=== PATIENT | male | born 1945 | race Caucasian/White ===

== ENCOUNTER 2016-12-14 19:29 | Inpatient (IN) | payer MEDICARE ==
[~2016-12-14] VITALS: Ht 175.3 cm; Wt 94.8 kg
[~2016-12-14 19:29] MED LIST: AMLO5TAB4 PO; Bisacodyl PR; CYCL10TA2 PO; DOCU-27 PO; GABA-586 PO; HYDR-2762 PO; SENN8.6T3 PO; TAMS0.4C97 PO
--- NOTE | 2016-12-14 20:41 | PHYS DOC ---
Past Medical History Past Medical History: Hypertension, Other Additional Past Medical Histor: enlarged prostate Past Surgical History: Other Additional Past Surgical Histo: back surgery x 6, c-spine surgery hernia repair , TURP; vasectomy Alcohol Use: Rarely Drug Use: None Adult General Chief Complaint Chief Complaint: ALTERED MENTAL STATUS HPI HPI Patient is a 71 year old male who presents with complaint of a syncopal episode that took place prior to arrival. The patient was at his home when the episode occurred. Patient states the last thing he remembers was sitting down to watch TV. He states the next thing he remembers was waking up in the ambulance after his called EMS. She stated that the patient was unresponsive sitting in his chair at home and so she called the ambulance could she could not arouse him awake. On their arrival they noted that the patient had a heart rate in the 30s and a blood pressure of 60 systolic. Patient was started on IV fluids and placed in the ambulance. Upon placement in the ambulance the patient arose in his heart rate and blood pressure improved. Patient had a GCS of 3 initially per EMS and stated that the patient quickly had a GCS of 15 once he woke up. Patient has history of hypertension. Patient denies any history of myocardial infarction or coronary artery disease. Patient has not had any previous episodes similar to what he had prior to arrival. Patient denied any associated chest pain or shortness of breath. Patient states he did have dizziness while he was watching TV but denies any dizziness currently. The patient admits that he worked outside today for approximately 5 hours and states that he has urinated twice today. Review of Systems Review of Systems Constitutional: Denies fever or chills [] Eyes: Denies change in visual acuity, redness, or eye pain [] HENT: Denies nasal congestion or sore throat [] Respiratory: Denies cough or shortness of breath [] Cardiovascular: Syncope, denies chest pain or edema [] GI: Denies abdominal pain, nausea, vomiting, bloody stools or diarrhea [] : Denies dysuria or hematuria [] Musculoskeletal: Denies back pain or joint pain [] Integument: Denies rash or skin lesions [] Neurologic: Denies headache, focal weakness or sensory changes [] Current Medications Current Medications Current Medications Medications (Trade) Dose Ordered Sig/Adalgisa Start Time Stop Time Status Last Admin Dose Admin Sodium Chloride (Iv Sodium Chloride 0.9% 1000ml Bag) 1,000 ml @ 100 mls/hr 1X ONCE 12/14/16 20:45 12/15/16 06:44 12/14/16 21:13 100 MLS/HR Allergies Allergies Allergies Coded Allergies Type Severity Reaction Last Updated Verified No Known Drug Allergies 11/08/13 No Physical Exam Physical Exam Constitutional: Well developed, well nourished, no acute distress, non-toxic appearance. [] HENT: Normocephalic, atraumatic, bilateral external ears normal, oropharynx moist, no oral exudates, nose normal. [] Eyes: PERRLA, EOMI, conjunctiva normal, no discharge. [] Neck: Normal range of motion, no tenderness, supple, no stridor. [] Cardiovascular:Heart rate regular rhythm, grade 2/6 systolic ejection murmur heard best along right sternal border [] Lungs & Thorax: Bilateral breath sounds clear to auscultation [] Abdomen: Bowel sounds normal, soft, no tenderness, no masses, no pulsatile masses. [] Skin: Warm, dry, no erythema, no rash. [] Back: No tenderness, no CVA tenderness. [] Extremities: No tenderness, no cyanosis, no clubbing, ROM intact, no edema. [] Neurologic: Alert and oriented X 3, normal motor function, normal sensory function, no focal deficits noted. [] Current Patient Data Vital Signs Vital Signs Date Time Temp Pulse Resp B/P Pulse Ox O2 Delivery O2 Flow Rate FiO2 12/14/16 21:00 60 20 180/77 97 12/14/16 20:00 Room Air 12/14/16 19:40 97.7 97.7 Lab Values Laboratory Tests Test 12/14/16 19:40 White Blood Count 10.2x10^3/uL (4.0-11.0) Red Blood Count 4.10x10^6/uL (4.30-5.70) L Hemoglobin 12.3g/dL (13.0-17.5) L Hematocrit 37.1% (39.0-53.0) L Mean Corpuscular Volume 91fL (79-100) Mean Corpuscular Hemoglobin 30pg (25-35) Mean Corpuscular Hemoglobin Concent 33g/dL (31-37) Red Cell Distribution Width 13.7% (11.5-14.5) Platelet Count 189x10^3/uL (140-400) Neutrophils (%) (Auto) 66% (31-73) Lymphocytes (%) (Auto) 22% (24-48) L Monocytes (%) (Auto) 10% (0-9) H Eosinophils (%) (Auto) 1% (0-3) Basophils (%) (Auto) 1% (0-3) Neutrophils # (Auto) 6.8x10^3uL (1.8-7.7) Lymphocytes # (Auto) 2.2x10^3/uL (1.0-4.8) Monocytes # (Auto) 1.0x10^3/uL (0.0-1.1) Eosinophils # (Auto) 0.1x10^3/uL (0.0-0.7) Basophils # (Auto) 0.1x10^3/uL (0.0-0.2) Sodium Level 142mmol/L (136-145) Potassium Level 4.5mmol/L (3.5-5.1) Chloride Level 107mmol/L (98-107) Carbon Dioxide Level 24mmol/L (21-32) Anion Gap 11 (6-14) Blood Urea Nitrogen 27mg/dL (8-26) H Creatinine 1.7mg/dL (0.7-1.3) H Estimated GFR (Cockcroft-Gault) 39.8 BUN/Creatinine Ratio 16 (6-20) Glucose Level 110mg/dL (70-99) H Calcium Level 10.1mg/dL (8.5-10.1) Magnesium Level 1.9mg/dL (1.8-2.4) Total Bilirubin 0.5mg/dL (0.2-1.0) Aspartate Amino Transferase (AST) 31U/L (15-37) Alanine Aminotransferase (ALT) 30U/L (16-63) Alkaline Phosphatase 47U/L (46-116) Creatine Kinase 391U/L (39-308) H Creatine Kinase MB (Mass) Pending Creatine Kinase MB Relative Index Pending Troponin I Quantitative < 0.017ng/mL (0.000-0.055) Total Protein 6.8g/dL (6.4-8.2) Albumin 3.5g/dL (3.4-5.0) Albumin/Globulin Ratio 1.1 (1.0-1.7) Laboratory Tests 12/14/16 19:40 Laboratory Tests 12/14/16 19:40 EKG EKG Interpreted by me: Heart rate 55, sinus rhythm, normal intervals, normal axis, no acute ST/T-wave abnormalities present [] Radiology/Procedures Radiology/Procedures One view AP chest x-ray interpreted by me: No infiltrate, no effusions, normal cardiac silhouette [] Course & Med Decision Making Course & Med Decision Making Pertinent Labs and Imaging studies reviewed. (See chart for details) The patient was started on IV fluids in the emergency department. Patient's troponin was normal. Patient's kidney function consistent with dehydration. Due to patient's age and presence of heart murmur with no previous cardiac workup, the patient will need admission to the hospital for further workup of syncope. I spoke with Dr. Moses who accepted care of patient in hospital. A consult was placed to Dr. Canchola of cardiology to follow patient in hospital. Dragon Disclaimer Dragon Disclaimer This electronic medical record was generated, in whole or in part, using a voice recognition dictation system. Departure Departure Impression: Primary Impression: Syncope Additional Impressions: Heart murmur Dehydration Disposition: ADMITTED INPATIENT Admitting Physician: Other Condition: STABLE Referrals: ZOHREH ZUÑIGA MD (PCP) Problem Qualifiers Primary Impression: Syncope Syncope type: unspecified Qualified Code: R55 - Syncope and collapse RIO GLOVER MD Dec 14, 2016 20:41
[2016-12-14 20:43] LABS: BASO # 0.1 x10^3/uL (0.0-0.2); BASO % 1 % (0-3); EOS % 1 % (0-3); HEMATOCRIT 37.1 % (39.0-53.0); HEMOGLOBIN 12.3 g/dL (13.0-17.5); LYMPH # 2.2 x10^3/uL (1.0-4.8); LYMPH % 22 % (24-48); MEAN CORPUSCULAR HEMOGLOBIN 30 pg (25-35); MEAN CORPUSCULAR HGB CONC 33 g/dL (31-37); MEAN CORPUSCULAR VOLUME 91 fL (79-100); MONO % 10 % (0-9); NEUT % 66 % (31-73); PLATELET COUNT 189 x10^3/uL (140-400); RED CELL DISTRIBUTION WIDTH 13.7 % (11.5-14.5); WHITE BLOOD COUNT 10.2 x10^3/uL (4.0-11.0)
[2016-12-14] MEDS ORDERED: IV NORMAL SALINE 1000ML BAG 1,000 ML IV ONE (20:45)
[2016-12-14 21:18] LABS: CALCIUM 10.1 mg/dL (8.5-10.1); CREATININE 1.7 mg/dL (0.7-1.3); GFR 39.8; POTASSIUM 4.5 mmol/L (3.5-5.1)
[2016-12-14 21:25] LABS: ALBUMIN 3.5 g/dL (3.4-5.0); ALBUMIN/GLOBULIN RATIO 1.1 (1.0-1.7); MAGNESIUM 1.9 mg/dL (1.8-2.4); TOTAL BILIRUBIN 0.5 mg/dL (0.2-1.0); TOTAL PROTEIN 6.8 g/dL (6.4-8.2)
--- NOTE | 2016-12-14 22:12 | ACF ---
Admission Forms Criteria MENTAL STATUS CHANGE Clinical Indications for Inpatient Care (Place 'X' for any and all applicable criteria): Ongoing inpatient care may be needed for 1 or more of the following(1)(2)(3)(5)( 6): [ ]I. Suspected serious etiology (eg, medical disorder, [employer] event) of altered mental status [ ]II. Danger to self or others not manageable at lower level of care [ ]III. Grave disability (eg, inability to perform self care necessary at lower level of care) [ ]IV. Agitation or inappropriate behavior interfering with care for primary condition (eg, attempting to discontinue lines or drains prematurely, unable to cooperate with respiratory care) [ ]V. Delirium [A] [D][E] as described by 1 or more of the following(26): [ ]a) Delirium due to alcohol or sedative [F] withdrawal [ ]b) Delirium of uncertain etiology that has not responded to appropriate empiric treatment [ ]c) Delirium that prevents performance of a life-sustaining function (eg, feeding or hydrating oneself) [X]. General contraindications and/or Inappropriate clinical situations for Observational Care in patients with Mental Status Change, when ANY ONE of the following is required: [ ]a) Prediction of prolongation of LOS based on ANY ONE of the following may be considered as a contraindication for observational care 2, 3, 4, 5, 6, 7, 8, 9, 10, 11 [ ]i) Age > 65 yrs. [ ]ii) Patient arriving by ambulance [ ]iii) Patient with high acuity [ ]iv) Patient requiring vital sign monitoring [ ]v) Patient on IV medication [X]b) Systolic blood pressures greater than or equal to 180mmHg 3, 12 [ ]c) Patient with altered mental status including delirium and other alteration of consciousness, (3) [ ]d) Patient whose discharge disposition will be to a group home home or rehabilitation home should not be managed in Emergency Department Observation Unit. CMS rule requires 3 days hospital stay before such placement.3,13 [ ]e) Patient with failure to thrive due to broad array of etiologies 3,16,17 [ ]f) Inability to ambulate 3,14 Extended stay beyond goal length of stay for the primary condition may be needed until ALL of the following are present(3)(5): [ ]a) Underlying medical etiology of mental status change is absent, or has been established and adequately treated [ ]b) Danger to self or others is absent or manageable at lower level of care. [ ]c) Behavior crisis management, including physical or chemical restraints, is not required or available at lower level of car [ ]d) Substance or alcohol withdrawal is absent or manageable at lower level of care. [ ]e) Behavioral symptoms (eg, agitation, somnolence, inappropriate behavior) are absent, or are manageable at lower level of care. The original [facility] content created by [facility] has been revised. The portions of the content which have been revised are identified through the use of italic text or in bold, and [facility] has neither reviewed nor approved the modified material. All other unmodified content is copyright [facility]. Please see references footnoted in the original [facility] edition 2016 Admission Criteria Met?: Yes VIRIDIANA MCNEILL Dec 14, 2016 22:12
[2016-12-14] MEDS ORDERED: ONDANSETRON PF 4 MG/2 ML VIAL. IV PRN (22:30)
[2016-12-14] MEDS ORDERED: ACETAMINOPHEN 325 MG TABLET. PO PRN (22:30)
[2016-12-14 22:50] VITALS: BP 162/67
[2016-12-15] VITALS (8 sets, daily range): BP systolic 125–170; BP diastolic 58–75
[2016-12-15] MEDS ORDERED: LISI-334 PO (00:11)
[2016-12-15] MEDS ORDERED: POLY17PO29 PO (00:11)
[2016-12-15 00:15] LABS: CKMB MASS 9.7 ng/mL (0.0-3.6)
--- NOTE | 2016-12-15 01:14 | EKG ---
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
[2016-12-15 04:51] LABS: BASO # 0.1 x10^3/uL (0.0-0.2); BASO % 1 % (0-3); EOS % 1 % (0-3); HEMATOCRIT 36.4 % (39.0-53.0); HEMOGLOBIN 12.1 g/dL (13.0-17.5); LYMPH # 2.4 x10^3/uL (1.0-4.8); LYMPH % 26 % (24-48); MEAN CORPUSCULAR HEMOGLOBIN 30 pg (25-35); MEAN CORPUSCULAR HGB CONC 33 g/dL (31-37); MEAN CORPUSCULAR VOLUME 90 fL (79-100); MONO % 10 % (0-9); NEUT % 63 % (31-73); PLATELET COUNT 183 x10^3/uL (140-400); RED BLOOD COUNT 4.03 x10^6/uL (4.30-5.70); RED CELL DISTRIBUTION WIDTH 13.7 % (11.5-14.5); WHITE BLOOD COUNT 9.5 x10^3/uL (4.0-11.0)
[2016-12-15 05:34] LABS: CALCIUM 9.7 mg/dL (8.5-10.1); CREATININE 1.5 mg/dL (0.7-1.3); POTASSIUM 4.4 mmol/L (3.5-5.1)
--- NOTE | 2016-12-15 08:35 | RAD ---
Portable chest, 12/14/2016: History: Syncope Comparison is made to a study from 04/16/2015. The heart size and pulmonary vascularity are normal. No pulmonary infiltrates are seen. There is no evidence of pleural fluid. Mild spurring is present in the spine. IMPRESSION: No acute cardiopulmonary abnormality is detected.
--- NOTE | 2016-12-15 09:07 | PDOC2 ---
RASHAWN STALLWORTH ENERGY EFFICIENCY ENGINEER 12/15/16 0907: CARDIAC CONSULT DATE OF CONSULT Date of Consult DATE: 12/15/16 TIME: 08:56 REASON FOR CONSULT Reason for Consult: Syncope REFERRING PHYSICIAN Referring Physician: Joshua SOURCE Source: Chart review, Patient HISTORY OF PRESENT ILLNESS HISTORY OF PRESENT ILLNESS This is a pleasant 71 yo male admitted for witnessed unresponsiveness. Spouse was byt the patient. They were sitting watching TV when she noticed that his nose was dripping secretions and asked him if he was ok and he said yes. Then next she noted him with saliva running down his mouth with his dentures hanging. She tried to wake him up but he could not. EMS arrived and it took about 5-10 minutes before she gaine consciousness. He was in a recliner at that time. Per EMS he was noted with HR in the 30s but no specifics as to what rhythm. Also his SBP was in the 60s. Prior to this happening he did have some dizziness but no symptoms of palpitations, SOA, WETZEL, CP, nor vertigo or LOZOYA. During that same day he actually did some yardwork and did well with adequate hydration. He does take BP meds otherwise there was no AV mor blocking agents nor diureics that he takes. He has not taken Flexeril in a while. Denies any prior episodes of this, CVA, CAD, arrhythmias. Denies any incontinence associated with this event no seizures in the past. Denies any falls, recent injury, or VTE. The last time he fell and this was a mechanical fall was 2 yrs ago. PAST MEDICAL HISTORY Cardiovascular: HTN Pulmonary: No pertinent hx CENTRAL NERVOUS SYSTEM: Other (No pertinent history) GI: Constipation Heme/Onc: No pertinent hx Hepatobiliary: No pertinent hx Psych: No pertinent hx Musculoskeletal: low back pain, Osteoarthritis Rheumatologic: No pertinent hx Infectious disease: No pertinent hx ENT: Other (cataract) Renal/: Benign prostatic enlarg. Endocrine: No pertinent hx Dermatology: No pertinent hx PAST SURGICAL HISTORY Past Surgical History: Cataract Removal, Hernia Repair, Other (Cervical surgery x2, lumbar surgery x4; vasectomy; TURP) SOCIAL HISTORY Smoke: No ALCOHOL: none Drugs: None Lives: with Family CURRENT MEDICATIONS CURRENT MEDICATIONS Current Medications Medications (Trade) Dose Ordered Sig/Adalgisa Route PRN Reason Start Time Stop Time Status Last Admin Dose Admin Sodium Chloride (Iv Sodium Chloride 0.9% 1000ml Bag) 1,000 ml @ 100 mls/hr 1X ONCE IV 12/14/16 20:45 12/15/16 06:44 DC 12/14/16 21:13 ALLERGIES ALLERGIES: Coded Allergies: No Known Drug Allergies (Unverified , 11/08/13) ROS Review of System 14 point ROS evaluated with pertinent positives noted per HPI PHYSICAL EXAM General: Alert, Oriented X3, Cooperative, No acute distress HEENT: Atraumatic, Mucous membr. moist/pink Lungs: Clear to auscultation, Normal air movement Heart: Regular rate, Normal S1, Normal S2, Other (2/6 systolic murmur to LLS border) Abdomen: Soft, No tenderness Extremities: No cyanosis, No edema Skin: No breakdown, No significant lesion Neuro: Normal speech, Sensation intact Psych/Mental Status: Mood NL MUSCULOSKELETAL: Osteoarthritic changes both hands VITALS VITALS Vital Signs Date Time Temp Pulse Resp B/P Pulse Ox O2 Delivery O2 Flow Rate FiO2 12/15/16 07:00 97.8 55 18 125/74 96 Room Air 97.8 LABS Lab: Laboratory Tests Test 12/14/16 19:40 12/15/16 03:40 White Blood Count 10.2x10^3/uL (4.0-11.0) 9.5x10^3/uL (4.0-11.0) Red Blood Count 4.10x10^6/uL (4.30-5.70) 4.03x10^6/uL (4.30-5.70) Hemoglobin 12.3g/dL (13.0-17.5) 12.1g/dL (13.0-17.5) Hematocrit 37.1% (39.0-53.0) 36.4% (39.0-53.0) Mean Corpuscular Volume 91fL (79-100) 90fL (79-100) Mean Corpuscular Hemoglobin 30pg (25-35) 30pg (25-35) Mean Corpuscular Hemoglobin Concent 33g/dL (31-37) 33g/dL (31-37) Red Cell Distribution Width 13.7% (11.5-14.5) 13.7% (11.5-14.5) Platelet Count 189x10^3/uL (140-400) 183x10^3/uL (140-400) Neutrophils (%) (Auto) 66% (31-73) 63% (31-73) Lymphocytes (%) (Auto) 22% (24-48) 26% (24-48) Monocytes (%) (Auto) 10% (0-9) 10% (0-9) Eosinophils (%) (Auto) 1% (0-3) 1% (0-3) Basophils (%) (Auto) 1% (0-3) 1% (0-3) Neutrophils # (Auto) 6.8x10^3uL (1.8-7.7) 6.0x10^3uL (1.8-7.7) Lymphocytes # (Auto) 2.2x10^3/uL (1.0-4.8) 2.4x10^3/uL (1.0-4.8) Monocytes # (Auto) 1.0x10^3/uL (0.0-1.1) 0.9x10^3/uL (0.0-1.1) Eosinophils # (Auto) 0.1x10^3/uL (0.0-0.7) 0.1x10^3/uL (0.0-0.7) Basophils # (Auto) 0.1x10^3/uL (0.0-0.2) 0.1x10^3/uL (0.0-0.2) Sodium Level 142mmol/L (136-145) 141mmol/L (136-145) Potassium Level 4.5mmol/L (3.5-5.1) 4.4mmol/L (3.5-5.1) Chloride Level 107mmol/L (98-107) 108mmol/L (98-107) Carbon Dioxide Level 24mmol/L (21-32) 23mmol/L (21-32) Anion Gap 11 (6-14) 10 (6-14) Blood Urea Nitrogen 27mg/dL (8-26) 29mg/dL (8-26) Creatinine 1.7mg/dL (0.7-1.3) 1.5mg/dL (0.7-1.3) Estimated GFR (Cockcroft-Gault) 39.8 46.0 BUN/Creatinine Ratio 16 (6-20) Glucose Level 110mg/dL (70-99) 105mg/dL (70-99) Calcium Level 10.1mg/dL (8.5-10.1) 9.7mg/dL (8.5-10.1) Magnesium Level 1.9mg/dL (1.8-2.4) Total Bilirubin 0.5mg/dL (0.2-1.0) Aspartate Amino Transf (AST/SGOT) 31U/L (15-37) Alanine Aminotransferase (ALT/SGPT) 30U/L (16-63) Alkaline Phosphatase 47U/L (46-116) Creatine Kinase 391U/L (39-308) Creatine Kinase MB (Mass) 9.7ng/mL (0.0-3.6) Creatine Kinase MB Relative Index 2.5% (0-4) Troponin I Quantitative < 0.017ng/mL (0.000-0.055) < 0.017ng/mL (0.000-0.055) Total Protein 6.8g/dL (6.4-8.2) Albumin 3.5g/dL (3.4-5.0) Albumin/Globulin Ratio 1.1 (1.0-1.7) ASSESSMENT/PLAN ASSESSMENT/PLAN 1. Symptomatic bradycardia: unknown rhythm but HR 30 noted at home by EMS. Currently SB 50s, QTc 383 2. Syncope: related to above. unresponsive for 5-10 minutes 3. Prerenal azotemia 4. UTI with hx of BPH/TURP 5. HTN: controlled Recommendations 1. TSH, lipids, TTE 2. Will determine any reversible etiology, pending testings will likely need PPM 3. Discussed with pt and family regarding plans. 4. Antibiotics per PCP 5. Continue with IVF 6. Will obtain orthostatic readings. 7. Will hold lisinopril for now. Hydralazine IV PRN Problems: MINDI GUERRERO MD 12/15/16 8119: CARDIAC CONSULT ALLERGIES ALLERGIES: Coded Allergies: No Known Drug Allergies (Unverified , 11/08/13) ASSESSMENT/PLAN ASSESSMENT/PLAN Pt. seen and examined. Agree with above CAROUSEL ATTENDANT note. 71 y.o male with syncope. Cannot rule out seizure. Reported HR of 30's but no strip available for review. Current cardiac exam notable for soft systolic murmur. Echo with preserved EF and mild to mod AI. Labs reviewed, mild renal insufficiency. BP/HR thus far in the hospital stable. No acute indication for pacemaker, unless we have strips from EMS available for review. Will consult neurology to rule out seizure, and check head CT. Likely home with event monitor unless he has any issues on tele. Discussed with , daughter as well. Avoid driving until monitor complete. Thanks for consultation. Will f/u tomorrow. Problems: RASHAWN STALLWORTH APRN Dec 15, 2016 09:07 MINDI GUERRERO MD Dec 15, 2016 14:39
[2016-12-15 09:33] LABS: CHOLESTEROL/HDL RATIO 5.9
[2016-12-15] MEDS ORDERED: hydrALAZINE 20 MG/ML VIAL. IVP PRN (12:30)
[2016-12-15] MEDS: ASPIRIN 325 MG TABLET PO SCH (12:44)
[2016-12-15] MEDS: IV NORMAL SALINE 1000ML BAG 1,000 ML IV SCH ×2 (12:50→18:30)
--- NOTE | 2016-12-15 13:54 | CARD ---
APPROVED REPORT EXAM: Two-dimensional and M-mode echocardiogram with Doppler and color Doppler. Other Information Quality : GoodHR: 52bpm Rhythm : Bradycardia with APC's INDICATION Bradycardia 2D DIMENSIONS RVDd3.3 (2.9-3.5cm)Left Atrium(2D)3.5 (1.6-4.0cm) IVSd1.5 (0.7-1.1cm)Aortic Root(2D)2.6 (2.0-3.7cm) LVDd5.3 (3.9-5.9cm)LVOT Diameter2.2 (1.8-2.4cm) PWd1.5 (0.7-1.1cm)LVDs3.6 (2.5-4.0cm) FS (%) 31.6 %SV78.9 ml LVEF(%)59.1 (>50%) Aortic Valve AoV Peak Filippo.255.9cm/sAoV VTI54.6cm AO Peak GR.26.2mmHgLVOT Peak Filippo.116.1cm/s LVOT VTI 26.26cmAO Mean GR.13mmHg DAMI (VMAX)1.89ge9BJT (VTI)1.87cm2 AI P 1/2 Pumi644ii Mitral Valve MV E Krpfoijz73.9cm/sMV DECEL HBGB696sm MV A Iwxuskxc40.5cm/sMV E Mean Gr.1mmHg MV TVK579grG/A Ratio0.8 MV A Svhddyzk942bqQGL (PHT)2.01cm2 TDI E/Lateral E'7.4E/Medial E'9.6 Pulmonary Valve PV Peak Kqatwahy909.8cm/sPV Peak Grad.6mmHg RVOT VTI20.9cm Tricuspid Valve TR P. Noetlxty243yi/sRAP XFBHQYMN2kmYp TR Peak Gr.50obBfMZPI90ukMc Pulmonary Vein S1 Bdjdxdpa72.3cm/sD2 Hlaoiisg03.0cm/s PVa ntxkohyy389lrkj LEFT VENTRICLE The left ventricle is normal size. There is mild concentric left ventricular hypertrophy. Left ventri gaviota systolic function is normal. The Ejection Fraction is 55-60%. There is normal LV segmental wall m otion. Transmitral Doppler flow pattern is Grade I-abnormal relaxation pattern. There is no ventricul ar septal defect visualized. RIGHT VENTRICLE The right ventricle is normal size. The right ventricular systolic function is normal. ATRIA The left atrium size is normal. The right atrium size is normal. The interatrial septum is intact wit h no evidence for an atrial septal defect or patent foramen ovale as noted on 2-D or Doppler imaging. AORTIC VALVE The aortic valve is mild to moderately calcified but opens well. The aortic valve is trileaflet. Dopp ler and Color Flow revealed mild to moderate aortic regurgitation. There is no significant aortic ann marie vular stenosis. MITRAL VALVE Mitral annular calcification is mild. The mitral valve leaflets are mildly calcified but open well. T here is no evidence of mitral valve prolapse. There is no mitral valve stenosis. Doppler and Color Fl ow revealed trace mitral valve regurgitation noted. TRICUSPID VALVE The tricuspid valve is normal in structure. Doppler and Color Flow revealed mild tricuspid regurgitat ion. The PA pressure was estimated at 28 mmHg. There is no tricuspid valve stenosis. PULMONIC VALVE The pulmonary valve is normal in structure and function. Doppler and Color Flow revealed trace pulmon ic valvular regurgitation. There is no pulmonic valvular stenosis. GREAT VESSELS The aortic root is normal in size. The ascending aorta is normal in size. Normal pulmonary venous tha w (Doppler). The IVC is normal in size and collapses >50% with inspiration. PERICARDIAL EFFUSION There is no pleural effusion. There is no evidence of significant pericardial effusion. Critical Notification Critical Value: No <Conclusion> Left ventricle systolic function is normal. The Ejection Fraction is 55-60%. There is normal LV segmental wall motion. Doppler and Color Flow revealed mild to moderate aortic regurgitation.
[2016-12-15] MEDS ORDERED: SENNOSIDES 8.6 MG TABLET PO PRN (14:30)
[2016-12-15] MEDS ORDERED: HYDROCODONE/APAP 7.5/325MG TABLET. PO PRN (14:30)
[2016-12-15] MEDS ORDERED: POLYETHYLENE GLYCOL 3350 17 GM PACKET. PO PRN (14:30)
[2016-12-15] MEDS ORDERED: BISACODYL 10 MG SUPP.RECT. PR PRN (15:00)
--- NOTE | 2016-12-15 15:25 | RAD ---
Carotid ultrasound, 12/15/2016: History: Syncope Duplex evaluation of the carotid arteries in neck was performed including grayscale, color-flow and spectral Doppler analysis. There is mild intimal thickening and smooth plaquing in the common carotid arteries and at the carotid bifurcations. The Doppler data obtained from the bifurcations reveals no significant focal velocity elevation to suggest a hemodynamically significant carotid stenosis. The peak systolic velocity in the right internal carotid artery is 74 cm per sec with an end-diastolic velocity of 19 cm/s. The peak systolic velocity in the left internal carotid artery is 58 cm/s with an end-diastolic velocity of 15 cm/s. Antegrade flow is present in both vertebral arteries in the neck. IMPRESSION: Mild atherosclerotic plaquing at both carotid bifurcations with underlying luminal narrowing in the 0-50% diameter range bilaterally. Note: Stenosis calculations for CT, MRA and conventional angiography are based upon determination of the distal ICA diameter in accordance with the NASCET methodology. Stenosis calculations for Doppler studies are derived from validated velocity criteria which are known to correlate with NASCET methodology of determining stenosis.
--- NOTE | 2016-12-15 15:27 | RAD ---
CT of the head without contrast, 12/15/2016: History: Syncope Comparison is made to a study from 11/08/2013. There is mild cerebral atrophy. There are mild patchy lucencies in the deep white matter bilaterally compatible with chronic ischemic change. The ventricles are mildly prominent on a compensatory basis. There is no shift of the midline structures. There is no evidence of acute intracranial hemorrhage or mass effect. IMPRESSION: 1. Chronic findings as described above. 2. No acute intracranial abnormality is detected. PQRS Compliance Statement: One or more of the following individualized dose reduction techniques were utilized for this examination: 1. Automated exposure control 2. Adjustment of the mA and/or kV according to patient size 3. Use of iterative reconstruction technique
--- NOTE | 2016-12-15 15:35 | HP ---
ADMIT DATE: 12/15/2016 CHIEF COMPLAINT: Mental status change. HISTORY OF PRESENT ILLNESS: The patient is a pleasant 71-year-old male who presents with mental status change. He actually had a syncopal episode prior to arrival that occurred at home. He was watching TV, and the next thing he knew he was in the ambulance. His had called the ambulance. When the ambulance first arrived, his heart rate was in the 30s. His pressure was in the 60s. He was given IV fluids and transferred to our facility. PAST MEDICAL HISTORY: Hypertension, BPH, back surgery x 6, TURP, and vasectomy. ALLERGIES: None. FAMILY HISTORY: Hypertension. SOCIAL HISTORY: Does not drink, smoke, or take drugs. MEDICATIONS: Reviewed. Please refer to the MRAD. REVIEW OF SYSTEMS: GENERAL: No history of weight change, weakness, or fevers. SKIN: No bruising, hair changes, or rashes. EYES: No blurred, double, or loss of vision. NOSE AND THROAT: No history of nosebleeds, hoarseness, or sore throat. HEART: He complains of intermittent palpitations. LUNGS: Denies cough, hemoptysis, wheezing, or shortness of breath. GASTROINTESTINAL: Denies changes in appetite, nausea, vomiting, diarrhea, or constipation. GENITOURINARY: No history of frequency, urgency, hesitancy, or nocturia. NEUROLOGIC: Denies history of numbness, tingling, tremor, or weakness. PSYCHIATRIC: No history of panic, anxiety, or depression. ENDOCRINE: No history of heat or cold intolerance, polyuria, or polydipsia. EXTREMITIES: Denies muscle weakness, joint pain, pain on walking, or stiffness. PHYSICAL EXAMINATION: VITAL SIGNS: Temperature afebrile, pulse currently at 55, respirations 18, blood pressure 125/74, and O2 saturation is 96%. GENERAL: He is alert and cooperative. HEART: Normal S1, S2, but bradycardic. LUNGS: Clear. ABDOMEN: Soft. EXTREMITIES: No edema. SKIN: No rashes. PSYCHIATRIC: Stable. VASCULAR: Good capillary refill. ENDOCRINE: No thyromegaly. LYMPHATICS: No cervical nodes. HEMATOPOIETIC: No bruising. LABORATORY DATA: White count 10, hemoglobin 12, and platelets 189. Electrolytes are normal other than BUN of 29 and creatinine 1.5. Cholesterol is high at 218, LDL 139, triglycerides 212, and HDL of 37. ASSESSMENT AND PLAN: Symptomatic bradycardia. The patient has been admitted. We are checking serial enzymes and serial EKGs. Consult Cardiology. Echocardiogram. Continue home medicines except for hold any negative chronotropic agents. PROGNOSIS: Guarded. STAR GRIGGS DO DR: AMI/adrianna JOB#: [id number] / [id number]
[2016-12-15] MEDS: GABAPENTIN 300 MG CAPSULE. PO SCH ×2 (15:48→21:57)
[2016-12-15] MEDS ORDERED: CYCLOBENZAPRINE 10 MG TABLET. PO PRN (18:00)
[2016-12-15] MEDS ORDERED: CYCLOBENZAPRINE 10 MG TABLET. PO SCH (18:00)
[2016-12-15] MEDS ORDERED: TAMSULOSIN 0.4 MG CAP.ER.24H. PO SCH (21:00)
[2016-12-15] MEDS ORDERED: ATORVASTATIN CALCIUM 20 MG TABLET PO SCH (21:00)
[2016-12-16] MEDS: IV NORMAL SALINE 1000ML BAG 1,000 ML IV SCH (01:30)
[2016-12-16 03:05] VITALS: BP 161/65
[2016-12-16 07:00] VITALS: BP 127/79
[2016-12-16] MEDS ORDERED: ACETAMINOPHEN 500 MG TABLET PO PRN (08:30)
[2016-12-16] MEDS ORDERED: POLYETHYLENE GLYCOL 3350 17 GM PACKET. PO PRN (08:30)
[2016-12-16] MEDS: LISINOPRIL 20 MG TABLET PO SCH (08:51)
[2016-12-16] MEDS: DOCUSATE SODIUM 100 MG CAPSULE. PO SCH (08:51)
[2016-12-16] MEDS: ASPIRIN 325 MG TABLET PO SCH (08:52)
[2016-12-16] MEDS: TAMSULOSIN 0.4 MG CAP.ER.24H. PO SCH (08:52)
[2016-12-16] MEDS: GABAPENTIN 300 MG CAPSULE. PO SCH ×3 (08:52→20:42)
[2016-12-16 09:05] LABS: CALCIUM 9.1 mg/dL (8.5-10.1); CREATININE 1.2 mg/dL (0.7-1.3); GFR 59.5; MAGNESIUM 1.9 mg/dL (1.8-2.4); POTASSIUM 4.1 mmol/L (3.5-5.1)
[2016-12-16 11:00] VITALS: BP 161/64
--- NOTE | 2016-12-16 11:23 | PDOC ---
PROGRESS NOTES Chief Complaint Chief Complaint cc: syncope, weakness. dehydration Hypertension BPH with prior TURP back surgery x 6 vasectomy osteoarthritis prior cataract removal History of Present Illness History of Present Illness Patient seen and evaluated at bedside. Patient sitting up in bed, in no apparent distress. Patient notes he is feeling much better, but still somewhat weak and c/o frontal headache. Ate his breakfast without any difficulty. d/w nurse about plan of care. Vitals Vitals Vital Signs Date Time Temp Pulse Resp B/P Pulse Ox O2 Delivery O2 Flow Rate FiO2 12/16/16 11:00 97.9 60 18 161/64 98 Room Air 97.9 Physical Exam General: Alert, Oriented X3, Cooperative, No acute distress Heart: Regular rate, Normal S1, Normal S2, Other (2/6 systolic murmur to LLS border) Lungs: Clear Abdomen: Soft, No tenderness Extremities: No cyanosis, No edema Skin: No breakdown, No significant lesion Labs LABS Laboratory Tests Test 12/16/16 08:30 Sodium Level 141mmol/L (136-145) Potassium Level 4.1mmol/L (3.5-5.1) Chloride Level 109mmol/L (98-107) Carbon Dioxide Level 22mmol/L (21-32) Anion Gap 10 (6-14) Blood Urea Nitrogen 20mg/dL (8-26) Creatinine 1.2mg/dL (0.7-1.3) Estimated GFR (Cockcroft-Gault) 59.5 Glucose Level 108mg/dL (70-99) Calcium Level 9.1mg/dL (8.5-10.1) Magnesium Level 1.9mg/dL (1.8-2.4) Review of Systems Review of Systems (+) generalized weakness (+) headache. Denies chest pain, palpitations, sob, dizziness/lightheadedness, abdominal pain , n/v/d, or fever/chills. Assessment and Plan Assessmemt and Plan Problems Medical Problems: (1) Dehydration Status: Acute (2) Heart murmur Status: Acute (3) Syncope Status: Acute Assessment: 1. Symptomatic bradycardia: 2. Syncopal episode, most likely secondary to 1. 3. Prerenal azotemia 4. HTN: controlled Assessment: 1.) continue telemetry monitoring. 2.) continue home medications as appropriate 3.) monitor orthostatic vitals 4.) IVF per cardiology 5.) CT head negative; carotid doppler with <50% stenosis. 6.) probable discharge when okay with subspecialty input 7.) appreciate subspecialty input. 8.) check AM labs. 9.) neurology consult recommended to r/o seizures or other pathology. 10.) PT/OT evaluation and treatment to assess stability. Problems: Comment Review of Relevant I have reviewed the following items helena (where applicable) has been applied. Labs Laboratory Tests Test 12/14/16 19:40 12/15/16 03:40 12/15/16 11:00 12/16/16 08:30 White Blood Count 10.2x10^3/uL (4.0-11.0) 9.5x10^3/uL (4.0-11.0) Red Blood Count 4.10x10^6/uL (4.30-5.70) 4.03x10^6/uL (4.30-5.70) Hemoglobin 12.3g/dL (13.0-17.5) 12.1g/dL (13.0-17.5) Hematocrit 37.1% (39.0-53.0) 36.4% (39.0-53.0) Mean Corpuscular Volume 91fL (79-100) 90fL (79-100) Mean Corpuscular Hemoglobin 30pg (25-35) 30pg (25-35) Mean Corpuscular Hemoglobin Concent 33g/dL (31-37) 33g/dL (31-37) Red Cell Distribution Width 13.7% (11.5-14.5) 13.7% (11.5-14.5) Platelet Count 189x10^3/uL (140-400) 183x10^3/uL (140-400) Neutrophils (%) (Auto) 66% (31-73) 63% (31-73) Lymphocytes (%) (Auto) 22% (24-48) 26% (24-48) Monocytes (%) (Auto) 10% (0-9) 10% (0-9) Eosinophils (%) (Auto) 1% (0-3) 1% (0-3) Basophils (%) (Auto) 1% (0-3) 1% (0-3) Neutrophils # (Auto) 6.8x10^3uL (1.8-7.7) 6.0x10^3uL (1.8-7.7) Lymphocytes # (Auto) 2.2x10^3/uL (1.0-4.8) 2.4x10^3/uL (1.0-4.8) Monocytes # (Auto) 1.0x10^3/uL (0.0-1.1) 0.9x10^3/uL (0.0-1.1) Eosinophils # (Auto) 0.1x10^3/uL (0.0-0.7) 0.1x10^3/uL (0.0-0.7) Basophils # (Auto) 0.1x10^3/uL (0.0-0.2) 0.1x10^3/uL (0.0-0.2) Sodium Level 142mmol/L (136-145) 141mmol/L (136-145) 141mmol/L (136-145) Potassium Level 4.5mmol/L (3.5-5.1) 4.4mmol/L (3.5-5.1) 4.1mmol/L (3.5-5.1) Chloride Level 107mmol/L (98-107) 108mmol/L (98-107) 109mmol/L (98-107) Carbon Dioxide Level 24mmol/L (21-32) 23mmol/L (21-32) 22mmol/L (21-32) Anion Gap 11 (6-14) 10 (6-14) 10 (6-14) Blood Urea Nitrogen 27mg/dL (8-26) 29mg/dL (8-26) 20mg/dL (8-26) Creatinine 1.7mg/dL (0.7-1.3) 1.5mg/dL (0.7-1.3) 1.2mg/dL (0.7-1.3) Estimated GFR (Cockcroft-Gault) 39.8 46.0 59.5 BUN/Creatinine Ratio 16 (6-20) Glucose Level 110mg/dL (70-99) 105mg/dL (70-99) 108mg/dL (70-99) Calcium Level 10.1mg/dL (8.5-10.1) 9.7mg/dL (8.5-10.1) 9.1mg/dL (8.5-10.1) Magnesium Level 1.9mg/dL (1.8-2.4) 1.9mg/dL (1.8-2.4) Total Bilirubin 0.5mg/dL (0.2-1.0) Aspartate Amino Transf (AST/SGOT) 31U/L (15-37) Alanine Aminotransferase (ALT/SGPT) 30U/L (16-63) Alkaline Phosphatase 47U/L (46-116) Creatine Kinase 391U/L (39-308) Creatine Kinase MB (Mass) 9.7ng/mL (0.0-3.6) Creatine Kinase MB Relative Index 2.5% (0-4) Troponin I Quantitative < 0.017ng/mL (0.000-0.055) < 0.017ng/mL (0.000-0.055) < 0.017ng/mL (0.000-0.055) Total Protein 6.8g/dL (6.4-8.2) Albumin 3.5g/dL (3.4-5.0) Albumin/Globulin Ratio 1.1 (1.0-1.7) Triglycerides Level 212mg/dL (0-150) Cholesterol Level 218mg/dL (0-200) LDL Cholesterol, Calculated 139mg/dL (0-100) VLDL Cholesterol, Calculated 42mg/dL (0-40) Non-HDL Cholesterol Calculated 181mg/dL (0-129) HDL Cholesterol 37mg/dL (40-60) Cholesterol/HDL Ratio 5.9 Thyroid Stimulating Hormone (TSH) 0.937uIU/mL (0.358-3.74) Laboratory Tests Test 12/16/16 08:30 Sodium Level 141mmol/L (136-145) Potassium Level 4.1mmol/L (3.5-5.1) Chloride Level 109mmol/L (98-107) Carbon Dioxide Level 22mmol/L (21-32) Anion Gap 10 (6-14) Blood Urea Nitrogen 20mg/dL (8-26) Creatinine 1.2mg/dL (0.7-1.3) Estimated GFR (Cockcroft-Gault) 59.5 Glucose Level 108mg/dL (70-99) Calcium Level 9.1mg/dL (8.5-10.1) Magnesium Level 1.9mg/dL (1.8-2.4) Medications Current Medications Sodium Chloride (Iv Sodium Chloride 0.9% 1000ml Bag) 1,000 ml @ 100 mls/hr 1X ONCE IV Last administered on 12/14/16 21:13; Start 12/14/16 at 20:45; Stop at 06:44; Status DC Ondansetron HCl 4 mg 4 mg PRN Q8HRS PRN IV NAUSEA/VOMITING; Start 12/14/16 at 22:30; Stop 12/15/16 at 22:29; Status DC Sodium Chloride (Iv Sodium Chloride 0.9% 1000ml Bag) 1,000 ml @ 100 mls/hr Q10H IV Last administered on 12/16/16 01:30; Start 12/14/16 at 22:30; Stop at 22:29; Status DC Acetaminophen (Tylenol) 650 mg PRN Q4HRS PRN PO FEVER; Start 12/14/16 at 22:30 ; Stop 12/15/16 at 22:29; Status DC Aspirin (Sheldon Aspirin) 325 mg DAILYWBKFT PO Last administered on 12/16/16 08: 52; Start 12/15/16 at 08:00 Atorvastatin Calcium (Lipitor) 20 mg QHS PO ; Start 12/15/16 at 21:00; Stop at 21:00; Status DC Hydralazine HCl (Apresoline) 10 mg PRN Q4HRS PRN IVP ELEVATED BP, SEE COMMENTS Last administered on 12/16/16 04:24; Start 12/15/16 at 12:30 Cyclobenzaprine HCl (Flexeril) 10 mg [id number] PO ; Start 12/15/16 at 18:00; Stop 12/15/16 at 18:00; Status DC Docusate Sodium (Colace) 100 mg DAILY PO Last administered on 12/16/16 08:51; Start 12/16/16 at 09:00 Acetaminophen/ Hydrocodone Bitart (Lortab 7.5/325) 1 tab PRN Q6HRS PRN PO PAIN ; Start 12/15/16 at 14:30 Lisinopril (Prinivil) 20 mg DAILY PO Last administered on 12/16/16 08:51; Start 12/16/16 at 09:00 Polyethylene Glycol (miraLAX PACKET) 3.35 gm PRN DAILY PRN PO CONSTIPATION Last administered on 12/16/16 08:52; Start 12/15/16 at 14:30 Sennosides (Senna) 8.6 mg PRN BID PRN PO CONSTIPATION (2ND CHOICE); Start 12/15 at 14:30 Tamsulosin HCl (Flomax) 0.4 mg HS PO ; Start 12/15/16 at 21:00; Stop 12/15/16 at 21:00; Status DC Gabapentin (Neurontin) 300 mg TID PO Last administered on 12/16/16 08:52; Start 12/15/16 at 15:00 Bisacodyl (Dulcolax Supp) 10 mg PRN DAILY PRN ME CONSTIPATION; Start 12/15/16 at 15:00 Cyclobenzaprine HCl (Flexeril) 10 mg PRN TID PRN PO MUSCLE SPASMS; Start at 18:00 Tamsulosin HCl (Flomax) 0.4 mg DAILY PO Last administered on 12/16/16 08:52; Start 12/16/16 at 09:00 Polyethylene Glycol (miraLAX PACKET) 17 gm PRN DAILY PRN PO CONSTIPATION; Start 12/16/16 at 08:30; Status Cancel Acetaminophen (Tylenol) 500 mg PRN Q6HRS PRN PO MILD PAIN / TEMP Last administered on 12/16/16 08:52; Start 12/16/16 at 08:30 Active Scripts Active Senna (Sennosides) 8.6 Mg Tablet 8.6 Mg PO PRN BID PRN Colace (Docusate Sodium) 100 Mg Capsule 100 Mg PO DAILY [Bisacodyl] 10 MG Supp.rect 10 Mg ME PRN DAILY PRN Reported Lisinopril 20 Mg Tablet 20 Mg PO DAILY Miralax (Polyethylene Glycol 3350) 17 Gm Powd.pack 1 Pkt PO PRN DAILY PRN Hydrocodone-Apap 7.5-325 (Hydrocodone Bit/Acetaminophen) 1 Each Tablet 1 Tab PO PRN Q6HRS PRN Gabapentin 300 Mg Capsule 300 Mg PO TID Cyclobenzaprine Hcl 10 Mg Tablet 10 Mg PO Flomax (Tamsulosin Hcl) 0.4 Mg Cap.er.24h 0.4 Mg PO HS Vitals/I & O Vital Sign - Last 24 Hours 12/15/16 12/15/16 12/15/16 12/15/16 15:00 15:04 15:08 19:10 Temp 97.6 97.7 97.6 97.7 Pulse 52 53 59 60 Resp 16 B/P 156/75 152/65 153/67 152/69 Pulse Ox 97 96 O2 Delivery Room Air Room Air 12/15/16 12/15/16 12/16/16 12/16/16 20:00 23:05 03:05 04:24 Temp 98.0 98.3 98.0 98.3 Pulse 57 61 50 Resp 14 B/P 170/73 161/65 161/62 Pulse Ox 97 97 O2 Delivery Room Air Room Air Room Air 12/16/16 12/16/16 12/16/16 12/16/16 07:00 08:00 08:51 11:00 Temp 97.6 97.9 97.6 97.9 Pulse 55 55 60 Resp 18 B/P 127/79 127/79 161/64 Pulse Ox 96 98 O2 Delivery Room Air Room Air Room Air Intake and Output 12/15/16 12/15/16 12/16/16 15:00 23:00 07:00 Intake Total 550 ml 839 ml Output Total 200 ml Balance 550 ml 639 ml STAR GRIGGS III DO Dec 16, 2016 11:23
--- NOTE | 2016-12-16 12:22 | PDOC ---
RASHAWN STALLWORTH CARDBOARD CUTTER 12/16/16 1222: CARDIO Progress Notes Date and Time Date of Service 12/16/2016 Time of Evaluation 1100 Subjective Subjective: No Chest Pain, No shortness of breath, No Palpitations, No Dizziness, Other (ambulatroy without difficulty) Vitals Vitals Vital Signs Date Time Temp Pulse Resp B/P Pulse Ox O2 Delivery O2 Flow Rate FiO2 12/16/16 11:00 97.9 60 18 161/64 98 Room Air 97.9 Weight Weight [ ] Input and Output Intake and Output Intake and Output 12/16/16 06:59 Intake Total 1389 ml Output Total 200 ml Balance 1189 ml Intake Oral 550 ml IV Total 839 ml Output Urine Total 200 ml # Voids 5 # Bowel Movements 1 Laboratory Labs Laboratory Tests Test 12/16/16 08:30 Sodium Level 141mmol/L (136-145) Potassium Level 4.1mmol/L (3.5-5.1) Chloride Level 109mmol/L (98-107) Carbon Dioxide Level 22mmol/L (21-32) Anion Gap 10 (6-14) Blood Urea Nitrogen 20mg/dL (8-26) Creatinine 1.2mg/dL (0.7-1.3) Estimated GFR (Cockcroft-Gault) 59.5 Glucose Level 108mg/dL (70-99) Calcium Level 9.1mg/dL (8.5-10.1) Magnesium Level 1.9mg/dL (1.8-2.4) Physical Exam HEENT: Neck Supple W Full Motion Chest: Symmetric LUNGS: Clear to Auscultation Heart: S1S2, RRR (SB 40-60) Abdomen: Soft N/T Extremities: No Edema, No Calf Tenderness Neurology: alert, oriented, follow commands Assessment Assessment 1. Symptomatic bradycardia: unknown rhythm but HR 30 noted at home by EMS ( Unable to obtain the EKG strip from EMS) No further symptoms recurrence 2. Syncope: related to above. No injuries. With notable hypotension. Unresponsive for 5-10 minutes 3. Prerenal azotemia: resolved 4. UTI with hx of BPH/TURP: per PCP 5. HTN: controlled. No orthostasis. Labile with held lisinopril 6. HLP: new Recommendations 1. TTE with normal EF and wall motio, and mild to moderate aortic regurgitation. 4 wk event monitor as outpt 2. Resume lisinopril, and start on lipitor 3. 81 mg ASA for primary prevention 4. May DC per cardiac perspective, follow up in 5 weeks post event monitor. 5. Maintain daily po hydration. MINDI GUERRERO MD 12/16/16 2316: CARDIO Progress Notes Plan Plan Pt. seen and examined. Agree with above [employer] INSPECTOR note. No acute events overnight. Pt. walked with PT and no evidence of abn on tele Ok to DC from CV with monitor neurology w/u including carotid doppler, MRI negative. Will f/u in clinic. Thanks RASHAWN STALLWORTH CARDBOARD CUTTER Dec 16, 2016 12:22 MINDI GUERRERO MD Dec 16, 2016 23:16
[2016-12-16 15:00] VITALS: BP 159/93
--- NOTE | 2016-12-16 15:28 | PDOC2 ---
NEUROLOGY CONSULT Date of Admission Date of Admission DATE: 12/16/16 TIME: 15:11 Reason for Consult Reason for Consult: IMPRESSION: Syncope vs seizure. Weakness. Collapse event. Renal failure. HLD HTN Degenerative spine and disc disease. RECOMMENDATIONS/PLAN: Brain MRI w/o contrast. EEG Lab: see orders. Continue ASA 325 mg daily. Continue Lipitor HS. HISTORY OF THE PRESENT ILLNESS: 71-y-old male patient with above medical diseases suddenly collapsed in couch while watching TV. Per his , he last consciousness, unresponsive to verbal and textile stimuli, eye open and fixed, head dropped to chest with drooling, floppiness of extremities for several minutes. Ambulance was called and initial medical management was provided. He gained consciousness upon his way to [facility]. He had no collection. No obvious postictal state nor confusional episode, but he felt weakness. He had chronic right UE weakness after C-spine surgery but felt weaker this time. PAST MEDICAL HISTORY: Please see above. PAST SURGERY HISTORY: C-spine and back surgeries. Vasectomy. ALLERGY: Reviewed. MEDICATIONS: Refer to [facility] FAMILY HISTORY: Non contributory. SOCIAL HISTORY: Lives with his at home. Denies current smoking, drinking, and illicit drug use. REVIEW OF SYSTEMS: Constitutional: No malnutrition, weight loss, cachexia. Head: No traumatic brain or head injury. Skin: No edema, or rash. Ear: No infection. Eyes: No vision loss or color blindness. Nose: No bleeding or purulent discharges. Hearing: mild hearing decrease. Neck: No injury. Cardiac: HTN, HLD. Pulmonary: No COPD. GI: No GI ulcer, GI bleeding. Urinary/genital: BPH. Endocrinologic: No cousin face, craniofacial dysmorphism, polydactyly. Skeletomuscular: No muscular atrophy, deformity. Neurological: see HP. Psychiatric: Denies drug use/abuse. Otherwise, not [id number] review of systems. PHYSICAL EXAMINATION: General appearance is in no acute distress. HEENT: Normocephalic and nontraumatic. Eyes, nose, ears, and throat are unremarkable. Neck is supple. No lymphadenopathy. No crepitus. Cardiovascular: S1, S2, regular rate and rhythm. Pulmonary: Clear to auscultation bilaterally. Abdomen: Bowel sounds are positive. Abdomen is soft, nontender, and nondistended. Extremities: No rash, lesions, or edema. No restriction of range of motion NEUROLOGICAL EXAMINATION: Awake. Oriented to time, place and person. PERRL. EOMI. CN: no acute focal findings. Muscle tone: Increased in right UE and bilateral LE. Muscle strength: 4- right UE, 5- left side and LE. DTR: 3 UE and knee Plantar reflex: Neutral response bilaterally Gait: not examined in bed. Sensory exam: no acute abnormal findings. No obvious cerebellar signs elicited. F-T-N test fine. Current Medications Current Medications Current Medications Sodium Chloride (Iv Sodium Chloride 0.9% 1000ml Bag) 1,000 ml @ 100 mls/hr 1X ONCE IV Last administered on 12/14/16 21:13; Start 12/14/16 at 20:45; Stop at 06:44; Status DC Ondansetron HCl 4 mg 4 mg PRN Q8HRS PRN IV NAUSEA/VOMITING; Start 12/14/16 at 22:30; Stop 12/15/16 at 22:29; Status DC Sodium Chloride (Iv Sodium Chloride 0.9% 1000ml Bag) 1,000 ml @ 100 mls/hr Q10H IV Last administered on 12/16/16 01:30; Start 12/14/16 at 22:30; Stop at 22:29; Status DC Acetaminophen (Tylenol) 650 mg PRN Q4HRS PRN PO FEVER; Start 12/14/16 at 22:30 ; Stop 12/15/16 at 22:29; Status DC Aspirin (Sheldon Aspirin) 325 mg DAILYWBKFT PO Last administered on 12/16/16 08: 52; Start 12/15/16 at 08:00 Atorvastatin Calcium (Lipitor) 20 mg QHS PO ; Start 12/15/16 at 21:00; Stop at 21:00; Status DC Hydralazine HCl (Apresoline) 10 mg PRN Q4HRS PRN IVP ELEVATED BP, SEE COMMENTS Last administered on 12/16/16 04:24; Start 12/15/16 at 12:30 Cyclobenzaprine HCl (Flexeril) 10 mg [id number] PO ; Start 12/15/16 at 18:00; Stop 12/15/16 at 18:00; Status DC Docusate Sodium (Colace) 100 mg DAILY PO Last administered on 12/16/16 08:51; Start 12/16/16 at 09:00 Acetaminophen/ Hydrocodone Bitart (Lortab 7.5/325) 1 tab PRN Q6HRS PRN PO PAIN ; Start 12/15/16 at 14:30 Lisinopril (Prinivil) 20 mg DAILY PO Last administered on 12/16/16 08:51; Start 12/16/16 at 09:00 Polyethylene Glycol (miraLAX PACKET) 3.35 gm PRN DAILY PRN PO CONSTIPATION Last administered on 12/16/16 08:52; Start 12/15/16 at 14:30 Sennosides (Senna) 8.6 mg PRN BID PRN PO CONSTIPATION (2ND CHOICE); Start 12/15 at 14:30 Tamsulosin HCl (Flomax) 0.4 mg HS PO ; Start 12/15/16 at 21:00; Stop 12/15/16 at 21:00; Status DC Gabapentin (Neurontin) 300 mg TID PO Last administered on 12/16/16 14:17; Start 12/15/16 at 15:00 Bisacodyl (Dulcolax Supp) 10 mg PRN DAILY PRN [place] CONSTIPATION; Start 12/15/16 at 15:00 Cyclobenzaprine HCl (Flexeril) 10 mg PRN TID PRN PO MUSCLE SPASMS; Start at 18:00 Tamsulosin HCl (Flomax) 0.4 mg DAILY PO Last administered on 12/16/16 08:52; Start 12/16/16 at 09:00 Polyethylene Glycol (miraLAX PACKET) 17 gm PRN DAILY PRN PO CONSTIPATION; Start 12/16/16 at 08:30; Status Cancel Acetaminophen (Tylenol) 500 mg PRN Q6HRS PRN PO MILD PAIN / TEMP Last administered on 12/16/16 08:52; Start 12/16/16 at 08:30 Atorvastatin Calcium (Lipitor) 20 mg QHS PO ; Start 12/16/16 at 21:00 Active Scripts Active Senna (Sennosides) 8.6 Mg Tablet 8.6 Mg PO PRN BID PRN Colace (Docusate Sodium) 100 Mg Capsule 100 Mg PO DAILY [Bisacodyl] 10 MG Supp.rect 10 Mg VT PRN DAILY PRN Reported Lisinopril 20 Mg Tablet 20 Mg PO DAILY Miralax (Polyethylene Glycol 3350) 17 Gm Powd.pack 1 Pkt PO PRN DAILY PRN Hydrocodone-Apap 7.5-325 (Hydrocodone Bit/Acetaminophen) 1 Each Tablet 1 Tab PO PRN Q6HRS PRN Gabapentin 300 Mg Capsule 300 Mg PO TID Cyclobenzaprine Hcl 10 Mg Tablet 10 Mg PO Flomax (Tamsulosin Hcl) 0.4 Mg Cap.er.24h 0.4 Mg PO HS Allergies Allergies: Coded Allergies: No Known Drug Allergies (Unverified , 11/08/13) Vitals VITALS Vital Signs Date Time Temp Pulse Resp B/P Pulse Ox O2 Delivery O2 Flow Rate FiO2 12/16/16 11:00 97.9 60 18 161/64 98 Room Air 97.9 Labs Labs Laboratory Tests Test 12/14/16 19:40 12/15/16 03:40 12/15/16 11:00 12/16/16 08:30 White Blood Count 10.2x10^3/uL (4.0-11.0) 9.5x10^3/uL (4.0-11.0) Red Blood Count 4.10x10^6/uL (4.30-5.70) 4.03x10^6/uL (4.30-5.70) Hemoglobin 12.3g/dL (13.0-17.5) 12.1g/dL (13.0-17.5) Hematocrit 37.1% (39.0-53.0) 36.4% (39.0-53.0) Mean Corpuscular Volume 91fL (79-100) 90fL (79-100) Mean Corpuscular Hemoglobin 30pg (25-35) 30pg (25-35) Mean Corpuscular Hemoglobin Concent 33g/dL (31-37) 33g/dL (31-37) Red Cell Distribution Width 13.7% (11.5-14.5) 13.7% (11.5-14.5) Platelet Count 189x10^3/uL (140-400) 183x10^3/uL (140-400) Neutrophils (%) (Auto) 66% (31-73) 63% (31-73) Lymphocytes (%) (Auto) 22% (24-48) 26% (24-48) Monocytes (%) (Auto) 10% (0-9) 10% (0-9) Eosinophils (%) (Auto) 1% (0-3) 1% (0-3) Basophils (%) (Auto) 1% (0-3) 1% (0-3) Neutrophils # (Auto) 6.8x10^3uL (1.8-7.7) 6.0x10^3uL (1.8-7.7) Lymphocytes # (Auto) 2.2x10^3/uL (1.0-4.8) 2.4x10^3/uL (1.0-4.8) Monocytes # (Auto) 1.0x10^3/uL (0.0-1.1) 0.9x10^3/uL (0.0-1.1) Eosinophils # (Auto) 0.1x10^3/uL (0.0-0.7) 0.1x10^3/uL (0.0-0.7) Basophils # (Auto) 0.1x10^3/uL (0.0-0.2) 0.1x10^3/uL (0.0-0.2) Sodium Level 142mmol/L (136-145) 141mmol/L (136-145) 141mmol/L (136-145) Potassium Level 4.5mmol/L (3.5-5.1) 4.4mmol/L (3.5-5.1) 4.1mmol/L (3.5-5.1) Chloride Level 107mmol/L (98-107) 108mmol/L (98-107) 109mmol/L (98-107) Carbon Dioxide Level 24mmol/L (21-32) 23mmol/L (21-32) 22mmol/L (21-32) Anion Gap 11 (6-14) 10 (6-14) 10 (6-14) Blood Urea Nitrogen 27mg/dL (8-26) 29mg/dL (8-26) 20mg/dL (8-26) Creatinine 1.7mg/dL (0.7-1.3) 1.5mg/dL (0.7-1.3) 1.2mg/dL (0.7-1.3) Estimated GFR (Cockcroft-Gault) 39.8 46.0 59.5 BUN/Creatinine Ratio 16 (6-20) Glucose Level 110mg/dL (70-99) 105mg/dL (70-99) 108mg/dL (70-99) Calcium Level 10.1mg/dL (8.5-10.1) 9.7mg/dL (8.5-10.1) 9.1mg/dL (8.5-10.1) Magnesium Level 1.9mg/dL (1.8-2.4) 1.9mg/dL (1.8-2.4) Total Bilirubin 0.5mg/dL (0.2-1.0) Aspartate Amino Transf (AST/SGOT) 31U/L (15-37) Alanine Aminotransferase (ALT/SGPT) 30U/L (16-63) Alkaline Phosphatase 47U/L (46-116) Creatine Kinase 391U/L (39-308) Creatine Kinase MB (Mass) 9.7ng/mL (0.0-3.6) Creatine Kinase MB Relative Index 2.5% (0-4) Troponin I Quantitative < 0.017ng/mL (0.000-0.055) < 0.017ng/mL (0.000-0.055) < 0.017ng/mL (0.000-0.055) Total Protein 6.8g/dL (6.4-8.2) Albumin 3.5g/dL (3.4-5.0) Albumin/Globulin Ratio 1.1 (1.0-1.7) Triglycerides Level 212mg/dL (0-150) Cholesterol Level 218mg/dL (0-200) LDL Cholesterol, Calculated 139mg/dL (0-100) VLDL Cholesterol, Calculated 42mg/dL (0-40) Non-HDL Cholesterol Calculated 181mg/dL (0-129) HDL Cholesterol 37mg/dL (40-60) Cholesterol/HDL Ratio 5.9 Thyroid Stimulating Hormone (TSH) 0.937uIU/mL (0.358-3.74) Laboratory Tests Test 12/16/16 08:30 Sodium Level 141mmol/L (136-145) Potassium Level 4.1mmol/L (3.5-5.1) Chloride Level 109mmol/L (98-107) Carbon Dioxide Level 22mmol/L (21-32) Anion Gap 10 (6-14) Blood Urea Nitrogen 20mg/dL (8-26) Creatinine 1.2mg/dL (0.7-1.3) Estimated GFR (Cockcroft-Gault) 59.5 Glucose Level 108mg/dL (70-99) Calcium Level 9.1mg/dL (8.5-10.1) Magnesium Level 1.9mg/dL (1.8-2.4) NATASHA CACERES MD Dec 16, 2016 15:28
--- NOTE | 2016-12-16 17:00 | RAD ---
PROCEDURE Brain MRI without contrast. HISTORY Right-sided weakness. Mental status changes. TECHNIQUE Multi sequence and multiplanar magnetic resonance imaging of the brain was performed without contrast. COMPARISON Head CT dated 12/15/2016. FINDINGS There is no restricted diffusion to suggest acute or subacute infarction. There is no susceptibility effect to suggest hemorrhage. There is no mass effect or midline shift. There is no hydrocephalus. There is ventricular enlargement due to cerebral volume loss. There is a tiny cavum septum pellucidum. There are extensive scattered focal areas of signal change throughout the cerebral white matter, likely due to chronic small vessel disease. There are chronic lacunar infarcts within the bilateral basal ganglia. There are findings consistent with lens surgery. There is mild paranasal sinus mucosal thickening. The mastoid air cells are clear. There are normal flow voids within the cerebral vessels. IMPRESSION 1. No acute intracranial finding. 2. Scattered areas of signal change throughout the cerebral white matter, a nonspecific finding likely due to chronic small vessel disease. 3. Chronic lacunar infarcts within the bilateral basal ganglia. 4. Cerebral volume loss with compensatory enlargement of the ventricles. Electronically signed by: Tiana Desai (Dec 16, 2016 16:58:48)
[2016-12-16 19:25] VITALS: BP 152/63
[2016-12-16] MEDS ORDERED: ATORVASTATIN CALCIUM 20 MG TABLET PO SCH (21:00)
[2016-12-16 23:15] VITALS: BP 166/66
[2016-12-17 03:45] VITALS: BP 159/86
[2016-12-17 06:14] LABS: BASO # 0.1 x10^3/uL (0.0-0.2); BASO % 1 % (0-3); EOS % 2 % (0-3); HEMATOCRIT 38.5 % (39.0-53.0); HEMOGLOBIN 12.7 g/dL (13.0-17.5); LYMPH # 1.8 x10^3/uL (1.0-4.8); LYMPH % 21 % (24-48); MEAN CORPUSCULAR HEMOGLOBIN 30 pg (25-35); MEAN CORPUSCULAR HGB CONC 33 g/dL (31-37); MEAN CORPUSCULAR VOLUME 90 fL (79-100); MONO % 10 % (0-9); NEUT % 66 % (31-73); PLATELET COUNT 186 x10^3/uL (140-400); RED BLOOD COUNT 4.28 x10^6/uL (4.30-5.70); RED CELL DISTRIBUTION WIDTH 13.9 % (11.5-14.5); WHITE BLOOD COUNT 8.4 x10^3/uL (4.0-11.0)
[2016-12-17 06:32] LABS: CALCIUM 9.6 mg/dL (8.5-10.1); CREATININE 1.2 mg/dL (0.7-1.3); GFR 59.5; POTASSIUM 4.1 mmol/L (3.5-5.1)
[2016-12-17 07:00] VITALS: BP 138/60
[2016-12-17] MEDS: TAMSULOSIN 0.4 MG CAP.ER.24H. PO SCH (10:22)
[2016-12-17] MEDS: DOCUSATE SODIUM 100 MG CAPSULE. PO SCH (10:22)
[2016-12-17] MEDS: GABAPENTIN 300 MG CAPSULE. PO SCH (10:22)
[2016-12-17] MEDS: ASPIRIN 325 MG TABLET PO SCH (10:23)
[2016-12-17] MEDS: LISINOPRIL 20 MG TABLET PO SCH (10:23)
[2016-12-17 11:00] VITALS: BP 170/72
--- NOTE | 2016-12-17 12:20 | PDOC ---
PROGRESS NOTES Chief Complaint Chief Complaint cc: syncope, weakness. dehydration Hypertension BPH with prior TURP back surgery x 6 vasectomy osteoarthritis prior cataract removal History of Present Illness History of Present Illness Patient seen and evaluated at bedside. Patient resting comfortably in no apparent distress. Patient reports feeling better today with resolution of his headache. Patient received a Holter monitor for home and understands to f/u with cardiology. awaiting possible EEG. d/w nurse about plan of care. Vitals Vitals Vital Signs Date Time Temp Pulse Resp B/P Pulse Ox O2 Delivery O2 Flow Rate FiO2 12/17/16 11:00 97.6 58 16 170/72 97 Room Air 97.6 Physical Exam General: Alert, Oriented X3, Cooperative, No acute distress Heart: Regular rate, Normal S1, Normal S2, Other (2/6 systolic murmur to LLS border) Lungs: Clear Abdomen: Soft, No tenderness Extremities: No cyanosis, No edema Skin: No breakdown, No significant lesion Labs LABS Laboratory Tests Test 12/17/16 05:30 White Blood Count 8.4x10^3/uL (4.0-11.0) Red Blood Count 4.28x10^6/uL (4.30-5.70) Hemoglobin 12.7g/dL (13.0-17.5) Hematocrit 38.5% (39.0-53.0) Mean Corpuscular Volume 90fL (79-100) Mean Corpuscular Hemoglobin 30pg (25-35) Mean Corpuscular Hemoglobin Concent 33g/dL (31-37) Red Cell Distribution Width 13.9% (11.5-14.5) Platelet Count 186x10^3/uL (140-400) Neutrophils (%) (Auto) 66% (31-73) Lymphocytes (%) (Auto) 21% (24-48) Monocytes (%) (Auto) 10% (0-9) Eosinophils (%) (Auto) 2% (0-3) Basophils (%) (Auto) 1% (0-3) Neutrophils # (Auto) 5.6x10^3uL (1.8-7.7) Lymphocytes # (Auto) 1.8x10^3/uL (1.0-4.8) Monocytes # (Auto) 0.9x10^3/uL (0.0-1.1) Eosinophils # (Auto) 0.2x10^3/uL (0.0-0.7) Basophils # (Auto) 0.1x10^3/uL (0.0-0.2) Sodium Level 139mmol/L (136-145) Potassium Level 4.1mmol/L (3.5-5.1) Chloride Level 109mmol/L (98-107) Carbon Dioxide Level 23mmol/L (21-32) Anion Gap 7 (6-14) Blood Urea Nitrogen 20mg/dL (8-26) Creatinine 1.2mg/dL (0.7-1.3) Estimated GFR (Cockcroft-Gault) 59.5 Glucose Level 109mg/dL (70-99) Calcium Level 9.6mg/dL (8.5-10.1) Review of Systems Review of Systems Denies chest pain, palpitations, sob, headache, lightheadedness/dizziness, abdominal pain, n/v/d, or fever/chills. Assessment and Plan Assessmemt and Plan Problems Medical Problems: (1) Dehydration Status: Acute (2) Heart murmur Status: Acute (3) Syncope Status: Acute Assessment: 1. Symptomatic bradycardia: 2. Syncopal episode, most likely secondary to 1. 3. Prerenal azotemia 4. HTN: controlled Assessment: 1.) probable discharge ok with cardiology; waiting for neurology. Pending EEG, can be performed inpatient vs. outpatient based on recommendations 2.) continue home medications as appropriate 3.) appreciate subspecialty input. 4.) resume activity and diet as appropriate 5.) f/u with pcp and/or cardiology in 2-4 weeks for evaluation and treatment. Problems: Comment Review of Relevant I have reviewed the following items helena (where applicable) has been applied. Labs Laboratory Tests Test 12/16/16 03:40 12/16/16 08:30 12/17/16 05:30 Vitamin B12 Level 312pg/mL (247-911) Sodium Level 141mmol/L (136-145) 139mmol/L (136-145) Potassium Level 4.1mmol/L (3.5-5.1) 4.1mmol/L (3.5-5.1) Chloride Level 109mmol/L (98-107) 109mmol/L (98-107) Carbon Dioxide Level 22mmol/L (21-32) 23mmol/L (21-32) Anion Gap 10 (6-14) 7 (6-14) Blood Urea Nitrogen 20mg/dL (8-26) 20mg/dL (8-26) Creatinine 1.2mg/dL (0.7-1.3) 1.2mg/dL (0.7-1.3) Estimated GFR (Cockcroft-Gault) 59.5 59.5 Glucose Level 108mg/dL (70-99) 109mg/dL (70-99) Calcium Level 9.1mg/dL (8.5-10.1) 9.6mg/dL (8.5-10.1) Magnesium Level 1.9mg/dL (1.8-2.4) White Blood Count 8.4x10^3/uL (4.0-11.0) Red Blood Count 4.28x10^6/uL (4.30-5.70) Hemoglobin 12.7g/dL (13.0-17.5) Hematocrit 38.5% (39.0-53.0) Mean Corpuscular Volume 90fL (79-100) Mean Corpuscular Hemoglobin 30pg (25-35) Mean Corpuscular Hemoglobin Concent 33g/dL (31-37) Red Cell Distribution Width 13.9% (11.5-14.5) Platelet Count 186x10^3/uL (140-400) Neutrophils (%) (Auto) 66% (31-73) Lymphocytes (%) (Auto) 21% (24-48) Monocytes (%) (Auto) 10% (0-9) Eosinophils (%) (Auto) 2% (0-3) Basophils (%) (Auto) 1% (0-3) Neutrophils # (Auto) 5.6x10^3uL (1.8-7.7) Lymphocytes # (Auto) 1.8x10^3/uL (1.0-4.8) Monocytes # (Auto) 0.9x10^3/uL (0.0-1.1) Eosinophils # (Auto) 0.2x10^3/uL (0.0-0.7) Basophils # (Auto) 0.1x10^3/uL (0.0-0.2) Laboratory Tests Test 12/17/16 05:30 White Blood Count 8.4x10^3/uL (4.0-11.0) Red Blood Count 4.28x10^6/uL (4.30-5.70) Hemoglobin 12.7g/dL (13.0-17.5) Hematocrit 38.5% (39.0-53.0) Mean Corpuscular Volume 90fL (79-100) Mean Corpuscular Hemoglobin 30pg (25-35) Mean Corpuscular Hemoglobin Concent 33g/dL (31-37) Red Cell Distribution Width 13.9% (11.5-14.5) Platelet Count 186x10^3/uL (140-400) Neutrophils (%) (Auto) 66% (31-73) Lymphocytes (%) (Auto) 21% (24-48) Monocytes (%) (Auto) 10% (0-9) Eosinophils (%) (Auto) 2% (0-3) Basophils (%) (Auto) 1% (0-3) Neutrophils # (Auto) 5.6x10^3uL (1.8-7.7) Lymphocytes # (Auto) 1.8x10^3/uL (1.0-4.8) Monocytes # (Auto) 0.9x10^3/uL (0.0-1.1) Eosinophils # (Auto) 0.2x10^3/uL (0.0-0.7) Basophils # (Auto) 0.1x10^3/uL (0.0-0.2) Sodium Level 139mmol/L (136-145) Potassium Level 4.1mmol/L (3.5-5.1) Chloride Level 109mmol/L (98-107) Carbon Dioxide Level 23mmol/L (21-32) Anion Gap 7 (6-14) Blood Urea Nitrogen 20mg/dL (8-26) Creatinine 1.2mg/dL (0.7-1.3) Estimated GFR (Cockcroft-Gault) 59.5 Glucose Level 109mg/dL (70-99) Calcium Level 9.6mg/dL (8.5-10.1) Medications Current Medications Sodium Chloride (Iv Sodium Chloride 0.9% 1000ml Bag) 1,000 ml @ 100 mls/hr 1X ONCE IV Last administered on 12/14/16 21:13; Start 12/14/16 at 20:45; Stop at 06:44; Status DC Ondansetron HCl 4 mg 4 mg PRN Q8HRS PRN IV NAUSEA/VOMITING; Start 12/14/16 at 22:30; Stop 12/15/16 at 22:29; Status DC Sodium Chloride (Iv Sodium Chloride 0.9% 1000ml Bag) 1,000 ml @ 100 mls/hr Q10H IV Last administered on 12/16/16 01:30; Start 12/14/16 at 22:30; Stop at 22:29; Status DC Acetaminophen (Tylenol) 650 mg PRN Q4HRS PRN PO FEVER; Start 12/14/16 at 22:30 ; Stop 12/15/16 at 22:29; Status DC Aspirin (Sheldon Aspirin) 325 mg [id number] PO Last administered on 12/17/16 10: 23; Start 12/15/16 at 08:00 Atorvastatin Calcium (Lipitor) 20 mg QHS PO ; Start 12/15/16 at 21:00; Stop at 21:00; Status DC Hydralazine HCl (Apresoline) 10 mg PRN Q4HRS PRN IVP ELEVATED BP, SEE COMMENTS Last administered on 12/16/16 04:24; Start 12/15/16 at 12:30 Cyclobenzaprine HCl (Flexeril) 10 mg [id number] PO ; Start 12/15/16 at 18:00; Stop 12/15/16 at 18:00; Status DC Docusate Sodium (Colace) 100 mg DAILY PO Last administered on 12/17/16 10:22; Start 12/16/16 at 09:00 Acetaminophen/ Hydrocodone Bitart (Lortab 7.5/325) 1 tab PRN Q6HRS PRN PO PAIN ; Start 12/15/16 at 14:30 Lisinopril (Prinivil) 20 mg DAILY PO Last administered on 12/17/16 10:23; Start 12/16/16 at 09:00 Polyethylene Glycol (miraLAX PACKET) 3.35 gm PRN DAILY PRN PO CONSTIPATION Last administered on 12/16/16 08:52; Start 12/15/16 at 14:30 Sennosides (Senna) 8.6 mg PRN BID PRN PO CONSTIPATION (2ND CHOICE); Start 12/15 at 14:30 Tamsulosin HCl (Flomax) 0.4 mg HS PO ; Start 12/15/16 at 21:00; Stop 12/15/16 at 21:00; Status DC Gabapentin (Neurontin) 300 mg TID PO Last administered on 12/17/16 10:22; Start 12/15/16 at 15:00 Bisacodyl (Dulcolax Supp) 10 mg PRN DAILY PRN PA CONSTIPATION; Start 12/15/16 at 15:00 Cyclobenzaprine HCl (Flexeril) 10 mg PRN TID PRN PO MUSCLE SPASMS; Start at 18:00 Tamsulosin HCl (Flomax) 0.4 mg DAILY PO Last administered on 12/17/16 10:22; Start 12/16/16 at 09:00 Polyethylene Glycol (miraLAX PACKET) 17 gm PRN DAILY PRN PO CONSTIPATION; Start 12/16/16 at 08:30; Status Cancel Acetaminophen (Tylenol) 500 mg PRN Q6HRS PRN PO MILD PAIN / TEMP Last administered on 12/16/16 08:52; Start 12/16/16 at 08:30 Atorvastatin Calcium (Lipitor) 20 mg QHS PO Last administered on 12/16/16 20: 42; Start 12/16/16 at 21:00 Active Scripts Active Senna (Sennosides) 8.6 Mg Tablet 8.6 Mg PO PRN BID PRN Colace (Docusate Sodium) 100 Mg Capsule 100 Mg PO DAILY [Bisacodyl] 10 MG Supp.rect 10 Mg PA PRN DAILY PRN Reported Lisinopril 20 Mg Tablet 20 Mg PO DAILY Miralax (Polyethylene Glycol 3350) 17 Gm Powd.pack 1 Pkt PO PRN DAILY PRN Hydrocodone-Apap 7.5-325 (Hydrocodone Bit/Acetaminophen) 1 Each Tablet 1 Tab PO PRN Q6HRS PRN Gabapentin 300 Mg Capsule 300 Mg PO TID Cyclobenzaprine Hcl 10 Mg Tablet 10 Mg PO Flomax (Tamsulosin Hcl) 0.4 Mg Cap.er.24h 0.4 Mg PO HS Vitals/I & O Vital Sign - Last 24 Hours 12/16/16 12/16/16 12/16/16 12/16/16 15:00 19:25 20:00 23:15 Temp 97.9 97.7 97.8 97.9 97.7 97.8 Pulse 55 65 68 Resp 18 14 12 B/P 159/93 152/63 166/66 Pulse Ox 98 97 100 O2 Delivery Room Air Room Air Room Air Room Air 12/17/16 12/17/16 12/17/16 12/17/16 03:45 07:00 08:54 10:23 Temp 98.0 97.4 98.0 97.4 Pulse 65 61 61 Resp 16 16 B/P 159/86 138/60 138/64 Pulse Ox 99 98 O2 Delivery Room Air Room Air Room Air 12/17/16 11:00 Temp 97.6 97.6 Pulse 58 Resp 16 B/P 170/72 Pulse Ox 97 O2 Delivery Room Air Intake and Output 12/16/16 12/16/16 12/17/16 15:00 23:00 07:00 Intake Total 1650 ml Balance 1650 ml STAR GRIGGS III DO Dec 17, 2016 12:20
--- NOTE | 2016-12-17 15:11 | PDOC ---
PROGRESS NOTES Assessment Assessment Syncope. Weakness. Collapse event. Renal failure. HLD HTN Carotid A stenosis, about 50%. Old lacunar infarcts in bilateral BG. Degenerative spine and disc disease. No evidence of acute stroke this time. RECOMMENDATIONS/PLAN: Continue ASA 325 mg daily. Continue Lipitor HS. Treat medical disease. Patient eduction for second stroke prevention. Discussed in all detail with him and his at bedside on 12/17/16. FU with PCP. HISTORY OF THE PRESENT ILLNESS: 71-y-old male patient with above medical diseases suddenly collapsed in couch while watching TV. Per his , he last consciousness, unresponsive to verbal and textile stimuli, eye open and fixed, head dropped to chest with drooling, floppiness of extremities for several minutes. Ambulance was called and initial medical management was provided. He gained consciousness upon his way to [facility]. He had no collection. No obvious postictal state nor confusional episode, but he felt weakness. He had chronic right UE weakness after C-spine surgery but felt weaker this time. Patient and his stated he did not have a stroke in the past. PAST MEDICAL HISTORY: Please see above. PAST SURGERY HISTORY: C-spine and back surgeries. Vasectomy. ALLERGY: Reviewed. MEDICATIONS: Refer to [facility] FAMILY HISTORY: Non contributory. SOCIAL HISTORY: Lives with his at home. Denies current smoking, drinking, and illicit drug use. REVIEW OF SYSTEMS: Constitutional: No malnutrition, weight loss, cachexia. Head: No traumatic brain or head injury. Skin: No edema, or rash. Ear: No infection. Eyes: No vision loss or color blindness. Nose: No bleeding or purulent discharges. Hearing: mild hearing decrease. Neck: No injury. Cardiac: HTN, HLD. Pulmonary: No COPD. GI: No GI ulcer, GI bleeding. Urinary/genital: BPH. Endocrinologic: No cousin face, craniofacial dysmorphism, polydactyly. Skeletomuscular: No muscular atrophy, deformity. Neurological: see HP. Psychiatric: Denies drug use/abuse. Otherwise, not [id number] review of systems. PHYSICAL EXAMINATION: General appearance is in no acute distress. HEENT: Normocephalic and nontraumatic. Eyes, nose, ears, and throat are unremarkable. Neck is supple. No lymphadenopathy. No crepitus. Cardiovascular: S1, S2, regular rate and rhythm. Pulmonary: Clear to auscultation bilaterally. Abdomen: Bowel sounds are positive. Abdomen is soft, nontender, and nondistended. Extremities: No rash, lesions, or edema. No restriction of range of motion NEUROLOGICAL EXAMINATION: Awake. Oriented to time, place and person. PERRL. EOMI. CN: no acute focal findings. Muscle tone: Increased in right UE and bilateral LE. Muscle strength: 4- right UE, 5 left side and LE. DTR: 3 UE and knee Plantar reflex: Neutral response bilaterally Gait: not examined in bed. Sensory exam: no acute abnormal findings. No obvious cerebellar signs elicited. F-T-N test fine. Objective Objective Vital Signs Date Time Temp Pulse Resp B/P Pulse Ox O2 Delivery O2 Flow Rate FiO2 12/17/16 11:00 97.6 58 16 170/72 97 Room Air 97.6 Intake and Output 12/17/16 07:00 Intake Total 1650 ml Balance 1650 ml Intake Oral 1650 ml # Voids 7 Vitals Signs Vitals VS - Last 72 Hours, by Label Date Time Temp Pulse Resp B/P Pulse Ox O2 Delivery O2 Flow Rate FiO2 12/17/16 11:00 97.6 58 16 170/72 97 Room Air 97.6 12/17/16 10:23 61 138/64 12/17/16 08:54 Room Air 12/17/16 07:00 97.4 61 16 138/60 98 Room Air 97.4 12/17/16 03:45 98.0 65 16 159/86 99 Room Air 98.0 12/16/16 23:15 97.8 68 12 166/66 100 Room Air 97.8 12/16/16 20:00 Room Air 12/16/16 19:25 97.7 65 14 152/63 97 Room Air 97.7 12/16/16 15:00 97.9 55 18 159/93 98 Room Air 97.9 12/16/16 11:00 97.9 60 18 161/64 98 Room Air 97.9 12/16/16 08:51 55 127/79 12/16/16 08:00 Room Air 12/16/16 07:00 97.6 55 17 127/79 96 Room Air 97.6 Laboratory Laboratory Laboratory Tests Test 12/17/16 05:30 White Blood Count 8.4x10^3/uL (4.0-11.0) Red Blood Count 4.28x10^6/uL (4.30-5.70) Hemoglobin 12.7g/dL (13.0-17.5) Hematocrit 38.5% (39.0-53.0) Mean Corpuscular Volume 90fL (79-100) Mean Corpuscular Hemoglobin 30pg (25-35) Mean Corpuscular Hemoglobin Concent 33g/dL (31-37) Red Cell Distribution Width 13.9% (11.5-14.5) Platelet Count 186x10^3/uL (140-400) Neutrophils (%) (Auto) 66% (31-73) Lymphocytes (%) (Auto) 21% (24-48) Monocytes (%) (Auto) 10% (0-9) Eosinophils (%) (Auto) 2% (0-3) Basophils (%) (Auto) 1% (0-3) Neutrophils # (Auto) 5.6x10^3uL (1.8-7.7) Lymphocytes # (Auto) 1.8x10^3/uL (1.0-4.8) Monocytes # (Auto) 0.9x10^3/uL (0.0-1.1) Eosinophils # (Auto) 0.2x10^3/uL (0.0-0.7) Basophils # (Auto) 0.1x10^3/uL (0.0-0.2) Sodium Level 139mmol/L (136-145) Potassium Level 4.1mmol/L (3.5-5.1) Chloride Level 109mmol/L (98-107) Carbon Dioxide Level 23mmol/L (21-32) Anion Gap 7 (6-14) Blood Urea Nitrogen 20mg/dL (8-26) Creatinine 1.2mg/dL (0.7-1.3) Estimated GFR (Cockcroft-Gault) 59.5 Glucose Level 109mg/dL (70-99) Calcium Level 9.6mg/dL (8.5-10.1) Medication Medications Current Medications Atorvastatin Calcium (Lipitor) 20 mg QHS PO Last administered on 12/16/16t 20: 42; Start 12/16/16 at 21:00 Comment Review of Relevant I have reviewed the following items helena (where applicable) has been applied. NATASHA CACERES MD Dec 17, 2016 15:11
[2016-12-17] MEDS ORDERED: ASPI325T4 PO (17:54)
[2016-12-17] MEDS ORDERED: ATOR20TA58 PO (17:55)
--- NOTE | 2016-12-18 16:01 | EEG ---
DATE OF SERVICE: 12/17/2016 EEG#: [id number] OBJECTIVE: This is a 71-year-old male patient with history of syncopal spell versus seizure. EEG was requested to help rule out seizure. METHODS: Twenty electrodes were applied according to the international 10-20 electrode placement system. EKG monitoring, hyperventilation, intermittent photic stimulation, monopolar and bipolar montages are routinely utilized. The record was obtained on a digital system with video monitoring. MEDICATIONS: No anti-seizure medication. FINDINGS: 1. Background: The patient was recorded in awake, drowsy and brief sleep states. The overall background amplitude is 5-10 microvolts. A posterior dominant rhythm of 8 Hz is observed with superimposed slowing in theta frequency but less than 50% of the time. 2. Abnormalities: No specific epileptiform discharge or electrographic seizure is seen. No diffuse slowing. 3. Activation: Hyperventilation was performed with good efforts and normal response. Intermittent Photic stimulation was performed with photic driving. No specific epileptiform discharge or electrographic seizure induced by hyperventilation or intermittent photic stimulation. IMPRESSION: This electroencephalogram is a mildly abnormal study for the awake, drowsy, and sleep states. Slightly increased slowing in theta frequency. No lateralizing, specific epileptiform discharge or electrographic seizure is seen. NATASHA CACERES MD DR: YAEL/adrianna JOB#: [id number] / [id number] RL
--- NOTE | 2016-12-24 21:42 | DS ---
DATE OF DISCHARGE: 12/17/2016 ADMISSION DIAGNOSIS: Syncope. DISCHARGE DIAGNOSIS: Resolving syncope, undetermined etiology, suspect possible arrhythmia. HOSPITAL COURSE: The patient is a pleasant 71-year-old male presented with syncope, we suspect he had an arrhythmia, but we did not catch it. We did serial enzymes, serial EKGs, cardiac monitoring and echo, consulted Cardiology. We are going to discharge him to home with Holter monitor. DISPOSITION: Home. ACTIVITY: As tolerated. DIET: Low sodium. MEDICATIONS: Please see the MRAD. TOTAL TIME: Thirty nine minutes. STAR GRIGGS DO DR: AMI/adrianna JOB#: [id number] / [id number]
== END 2016-12-17 18:38 | disposition home or self-care (01) | DRG 308 ==
LOC: ER 19:29 → 2 SOUTH 21:19
PROVIDERS: ADMIT Internal Medicine Hematology & Oncology; ATTEND Internal Medicine Hematology & Oncology
DX: R00.1 Bradycardia, unspecified (principal); N17.0 Acute kidney failure with tubular necrosis; N39.0 Urinary tract infection, site not specified; N40.1 Benign prostatic hyperplasia with lower urinary tract symptoms; E78.5 Hyperlipidemia, unspecified; E86.0 Dehydration; I10 Essential (primary) hypertension; N19 Unspecified kidney failure; I95.9 Hypotension, unspecified; K59.00 Constipation, unspecified; M54.5 Low back pain; R01.1 Cardiac murmur, unspecified; Z98.52 Vasectomy status; Z79.82 Long term (current) use of aspirin; Z82.49 Family history of ischemic heart disease and other diseases of the circulatory system; Z98.49 Cataract extraction status, unspecified eye
CPT/HCPCS: 36415; 70450; 70551; 71010; 80048; 80053; 80061; 82553; 82607; 83735; 84443; 84484; 85027; 93005; 93306; 93880; 95816; 96360; J0360; J7030; 99285-25

== ENCOUNTER 2017-01-18 20:13 | Inpatient (IN) | payer MEDICARE ==
[~2017-01-18] VITALS: Ht 175.3 cm; Wt 90.8 kg
[~2017-01-18 20:13] MED LIST changes: +ASPI325T4 PO; +ATOR20TA58 PO; +LISI-334 PO; +POLY17PO29 PO
[2017-01-18] MEDS ORDERED: fentaNYL PF VIAL 100 MCG/2 ML VIAL ONE (20:22)
--- NOTE | 2017-01-18 20:26 | PHYS DOC ---
Past Medical History Past Medical History: Hypertension, Other Additional Past Medical Histor: enlarged prostate Past Surgical History: Other Additional Past Surgical Histo: back surgery x 6, c-spine surgery hernia repair , TURP; vasectomy Alcohol Use: Rarely Drug Use: None Adult General Chief Complaint Chief Complaint: BRADYCARDIA HPI HPI Patient is a 71 year old male who presents by EMS with active transcutaneous pacing for unstable bradycardia. called EMS because he passed out at dinner table. He states he was feeling lightheaded for a few minutes prior to this. He otherwise states he had no symptoms during the day and felt generally well. He states this was similar to prior hospitalization for bradycardia where he required atropine. He was unresponsive with a pulse at home, so transcutaneous pacing was started. Once they obtained capture, EMS states his mental status improved to GCS of 15. Patient otherwise has no complaints other than discomfort from transcutaneous pacing. Review of Systems Review of Systems Constitutional: Denies fever or chills [] Eyes: Denies change in visual acuity, redness, or eye pain [] HENT: Denies nasal congestion or sore throat [] Respiratory: Denies cough or shortness of breath [] Cardiovascular: No additional information not addressed in HPI [] GI: Denies abdominal pain, nausea, vomiting, bloody stools or diarrhea [] : Denies dysuria or hematuria [] Musculoskeletal: Denies back pain or joint pain [] Integument: Denies rash or skin lesions [] Neurologic: Denies headache, focal weakness or sensory changes [] Endocrine: Denies polyuria or polydipsia [] Current Medications Current Medications Current Medications Medications (Trade) Dose Ordered Sig/Adalgisa Start Time Stop Time Status Last Admin Dose Admin Dopamine HCl/ Dextrose 250 ml @ 0 mls/hr 1X ONCE 01/18/17 20:30 01/18/17 20:34 DC 01/18/17 20:36 10.7 MLS/HR Fentanyl Citrate (Fentanyl 2ml Vial) 50 mcg PRN Q1HR PRN 01/18/17 20:30 01/18/17 20:25 50 MCG Allergies Allergies Allergies Coded Allergies Type Severity Reaction Last Updated Verified No Known Drug Allergies 11/08/13 No Physical Exam Physical Exam Constitutional: Well developed, well nourished, no acute distress, non-toxic appearance. [] HENT: Normocephalic, atraumatic, bilateral external ears normal, oropharynx moist, no oral exudates, nose normal. [] Eyes: PERRLA, EOMI. [] Neck: Normal range of motion, supple. [] Cardiovascular: Regular rhythm, transcutaneous pacer pads in place [] Lungs & Thorax: Bilateral breath sounds clear to auscultation [] Abdomen: Bowel sounds normal, soft, no tenderness. [] Skin: Warm, dry, no erythema, no rash. [] Back: Normal range of motion. [] Extremities: No tenderness, ROM intact, no edema. [] Neurologic: Alert and oriented X 3, normal motor function, normal sensory function, no focal deficits noted. [] Psychologic: Affect normal, judgement normal, mood normal. [] Current Patient Data Vital Signs Vital Signs Date Time Temp Pulse Resp B/P (MAP) Pulse Ox O2 Delivery O2 Flow Rate FiO2 01/18/17 20:13 98.0 89 24 151/83 (105) 97 Room Air 98.0 Lab Values Laboratory Tests Test 01/18/17 20:20 White Blood Count 11.2 x10^3/uL (4.0-11.0) H Red Blood Count 4.16 x10^6/uL (4.30-5.70) L Hemoglobin 12.6 g/dL (13.0-17.5) L Hematocrit 37.3 % (39.0-53.0) L Mean Corpuscular Volume 90 fL (79-100) Mean Corpuscular Hemoglobin 30 pg (25-35) Mean Corpuscular Hemoglobin Concent 34 g/dL (31-37) Red Cell Distribution Width 13.5 % (11.5-14.5) Platelet Count 188 x10^3/uL (140-400) Neutrophils (%) (Auto) 63 % (31-73) Lymphocytes (%) (Auto) 23 % (24-48) L Monocytes (%) (Auto) 11 % (0-9) H Eosinophils (%) (Auto) 1 % (0-3) Basophils (%) (Auto) 1 % (0-3) Neutrophils # (Auto) 7.1 x10^3uL (1.8-7.7) Lymphocytes # (Auto) 2.6 x10^3/uL (1.0-4.8) Monocytes # (Auto) 1.2 x10^3/uL (0.0-1.1) H Eosinophils # (Auto) 0.1 x10^3/uL (0.0-0.7) Basophils # (Auto) 0.1 x10^3/uL (0.0-0.2) Sodium Level 140 mmol/L (136-145) Potassium Level 4.7 mmol/L (3.5-5.1) Chloride Level 105 mmol/L (98-107) Carbon Dioxide Level 22 mmol/L (21-32) Anion Gap 13 (6-14) Blood Urea Nitrogen 33 mg/dL (8-26) H Creatinine 1.9 mg/dL (0.7-1.3) H Estimated GFR (Cockcroft-Gault) 35.0 Glucose Level 112 mg/dL (70-99) H Calcium Level 10.3 mg/dL (8.5-10.1) H Laboratory Tests 01/18/17 20:20 Laboratory Tests 01/18/17 20:20 EKG EKG EKG as interpreted by me as sinus bradycardia, rate 56, no ST-T changes, normal intervals, no ectopy Radiology/Procedures Radiology/Procedures Chest xray as interpreted by me with no acute cardiopulmonary disease process Course & Med Decision Making Course & Med Decision Making Pertinent Labs and Imaging studies reviewed. (See chart for details) Laboratory evaluation reveals slightly elevated BUN/creatinine; he is receiving IV fluids for this. Laboratory evaluation is otherwise unremarkable. Discussed case with Dr. Galeas, cardiology, who recommends transitioning to dopamine and leaving transcutaneous pacing available as backup with a lower heart rate. Discussed case with Dr. Cortez, who will admit. Dragon Disclaimer Dragon Disclaimer This electronic medical record was generated, in whole or in part, using a voice recognition dictation system. Departure Departure Impression: Primary Impression: Bradycardia Additional Impressions: Syncope Acute renal failure Disposition: ADMITTED INPATIENT Condition: CRITICAL Referrals: ZOHREH ZUÑIGA MD (PCP) Problem Qualifiers Additional Impressions: Syncope Syncope type: unspecified Qualified Codes: R55 - Syncope and collapse Baudilio HANSEN MD January 18, 2017 20:25
[2017-01-18] MEDS ORDERED: fentaNYL PF VIAL 100 MCG/2 ML VIAL IV PRN (20:30)
[2017-01-18 20:38] LABS: BASO # 0.1 x10^3/uL (0.0-0.2); BASO % 1 % (0-3); EOS % 1 % (0-3); HEMATOCRIT 37.3 % (39.0-53.0); HEMOGLOBIN 12.6 g/dL (13.0-17.5); LYMPH # 2.6 x10^3/uL (1.0-4.8); LYMPH % 23 % (24-48); MEAN CORPUSCULAR HEMOGLOBIN 30 pg (25-35); MEAN CORPUSCULAR HGB CONC 34 g/dL (31-37); MEAN CORPUSCULAR VOLUME 90 fL (79-100); MONO % 11 % (0-9); NEUT % 63 % (31-73); PLATELET COUNT 188 x10^3/uL (140-400); RED BLOOD COUNT 4.16 x10^6/uL (4.30-5.70); RED CELL DISTRIBUTION WIDTH 13.5 % (11.5-14.5); WHITE BLOOD COUNT 11.2 x10^3/uL (4.0-11.0)
[2017-01-18] MEDS ORDERED: ACETAMINOPHEN 325 MG TABLET. PO PRN (20:45)
[2017-01-18] MEDS ORDERED: ONDANSETRON PF 4 MG/2 ML VIAL. IV PRN (20:45)
[2017-01-18] MEDS ORDERED: IV NORMAL SALINE 1000ML BAG 1,000 ML IV ONE (20:45)
[2017-01-18 20:50] LABS: POTASSIUM ISTAT 4.6 mmol/L (3.5-5.0)
[2017-01-18 20:56] LABS: CALCIUM 10.3 mg/dL (8.5-10.1); CREATININE 1.9 mg/dL (0.7-1.3); POTASSIUM 4.7 mmol/L (3.5-5.1)
[2017-01-18 21:30] VITALS: BP 187/63
[2017-01-18 21:45] VITALS: BP 179/71
[2017-01-18 22:00] VITALS: BP 120/54
[2017-01-18 22:15] VITALS: BP 110/47
--- NOTE | 2017-01-18 22:58 | ACF ---
Admission Forms Criteria SYNCOPE Clinical Indications for Admission to Inpatient Care ( Place 'X' for any and all applicable criteria): Admission is indicated for syncope and ANY ONE of the following (1)(2)(3)(4)(5) (6)(7) : [X ]I. Inpatient admission required rather than observation care (Also use Syncope: Observation Care Criteria as appropriate) because of ANY ONE of the following: [X ]a) Hemodynamic instability that is severe or persistent [ ]b) Cardiac arrhythmias of immediate concern identified or strongly suspected (eg, needs electrophysiologic study) [ ]c) Acute coronary syndrome identified (Also use Myocardial Infarction or Angina Criteria form ) [ ]d) Structural cardiac disorder (eg, aortic stenosis) suspected as cause that requires immediate correction [ ]e) Respiratory symptoms (eg, dyspnea, tachypnea) that are severe or persistent [ ]f) Neurologic signs or symptoms that are severe or persistent ( eg, stroke, seizures, altered mental status) [ ]g) Severe electrolyte abnormalities requiring inpatient care [ ]h) Supplemental oxygen or respiratory treatment for over 24 hrs that are performable only in acute inpatient setting [ ]i) IV fluid to replace significant ongoing (eg, for over 24 hrs ) losses (>3 L/m2 per day) [ ]j) Continuous intravenous infusion of anticoagulation, platelet inhibitor, vasoactive, or antiarrhythmic medication(15)(16) [ ]k) Pulmonary artery catheter monitoring [ ]l) Temporary pacemaker placement(17) [ ]m) Emergent cardioversion(18) [ ]n) Other conditions, treatment or monitoring requiring inpatient admission [ ]II. Suspicion of imminently dangerous cause (eg, rare causes like pericardial tamponade, pulmonary embolism) [ ]III. Syncope causing severe injury requiring hospitalization Extended stay beyond goal length of stay may be needed for(28) [ ]a) Dangerous arrhythmia(15)(23)(27)(29) [ ]b) Myocardial ischemia [ ]c) Seizure disorder [ ]d) Syncope-related injuries The original [employer] content created by [employer] has been revised. The portions of the content which have been revised are identified through the use of italic text or in bold, and [employer] has neither reviewed nor approved the modified material. All other unmodified content is copyright [employer]. Please see references footnoted in the original [facility] edition 2016 Admission Criteria Met?: Yes KAILEE MONTERO January 18, 2017 22:58
[2017-01-18 23:00] VITALS: BP 119/58
[2017-01-18] MEDS ORDERED: CYCL10TA2 PO (23:40)
[2017-01-19] VITALS (24 sets, daily range): BP systolic 91–187; BP diastolic 46–98
--- NOTE | 2017-01-19 06:38 | EKG ---
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
--- NOTE | 2017-01-19 08:37 | RAD ---
Indication syncopal episode. A single view of the chest was obtained and is compared to a study 12/14/2016. Heart size is at the upper limits of normal. There is no congestive heart failure. There is no focal infiltrate significant pleural fluid collection or pneumothorax. A significant change compared to the previous exam is not seen. IMPRESSION: No acute or focal process. No significant change
[2017-01-19] MEDS ORDERED: SENNOSIDES 8.6 MG TABLET PO PRN (09:15)
[2017-01-19] MEDS ORDERED: HYDROcodone/APAP 7.5/325MG 1 TAB TABLET PO PRN (09:15)
[2017-01-19] MEDS ORDERED: BISACODYL 10 MG SUPP.RECT. PR PRN (09:15)
[2017-01-19] MEDS ORDERED: POLYETHYLENE GLYCOL 3350 17 GM PACKET. PO PRN (09:15)
[2017-01-19] MEDS ORDERED: LISINOPRIL 20 MG TABLET PO SCH (09:30)
[2017-01-19] MEDS: ASPIRIN 325 MG TABLET PO SCH (09:50)
[2017-01-19] MEDS: DOCUSATE SODIUM 100 MG CAPSULE. PO SCH (09:50)
--- NOTE | 2017-01-19 10:17 | PDOC1 ---
History and Physical Date of Admission Date of Admission DATE: 01/19/17 TIME: 10:03 Identification/Chief Complaint Chief Complaint passed out Problems: Source Source: Caregiver, Chart review, Patient History of Present Illness History of Present Illness 71 y.o very pleasant male admitted for LOC, syncope after exertion yesterday. Was doing some gardening, lives at home with , ambulates with cane or electronic wheelchair when going to stores, syncopized yesterday,no injuries, but had total LOC. EMS called, severely bradycardic, once temp transcutaneous pacer applied, regained consciousness to GCS 15. NO sxs, just some discomfort from pacer, Admitted henceforth, started on dopamine gtt by cards overnight. NOw off temp transcutaneous pacer since 3 AM but still on dopa gtt, HR 50s, BP 140/70, VS beautiful, denies sxs, but is laying in bed,. Last admit for syncope was 1 month ago, thought to be dehydration, had no evidence of ectopy in house and by 14 day holter which he wore as Rxd by cards as OP. HAs been NPO, talks about permanent venous pacer pending his clinical course. 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 Endocrine: No pertinent hx Past Surgical History Past Surgical History: Cataract Removal, Hernia Repair, Other Family History Family History: No Significant (reviewed, ) Social History Smoke: No ALCOHOL: none Drugs: None Current Problem List Problem List Problems Medical Problems: (1) Acute renal failure Status: Acute (2) Bradycardia Status: Acute (3) Syncope Status: Acute Problems: Current Medications Current Medications Current Medications Fentanyl Citrate (Fentanyl 2ml Vial) 100 mcg STK-MED ONCE .ROUTE ; Start at 20:22; Stop 01/18/17 at 20:23; Status DC Fentanyl Citrate (Fentanyl 2ml Vial) 50 mcg PRN Q1HR PRN IV pain Last administered on 01/18/17t 20:25; Start 01/18/17 at 20:30 Dopamine HCl/ Dextrose 250 ml @ 0 mls/hr 1X ONCE IV Last administered on 20:36; Start 01/18/17 at 20:30; Stop 01/18/17 at 20:34; Status DC Sodium Chloride 1,000 ml @ 75 mls/hr 1X ONCE IV Last administered on 20:22; Start 01/18/17 at 20:45; Stop 01/19/17 at 10:04 Ondansetron HCl (Zofran) 4 mg PRN Q8HRS PRN IV NAUSEA/VOMITING; Start 01/18/17 at 20:45; Stop 01/19/17 at 20:44 Acetaminophen (Tylenol) 650 mg PRN Q4HRS PRN PO FEVER; Start 01/18/17 at 20:45 ; Stop 01/19/17 at 20:44 Aspirin (Sheldon Aspirin) 325 mg DAILY PO Last administered on 01/19/17 09:50; Start 01/19/17 at 09:30 Atorvastatin Calcium (Lipitor) 20 mg HS PO ; Start 01/19/17 at 21:00 Docusate Sodium (Colace) 100 mg DAILY PO Last administered on 01/19/17 09:50; Start 01/19/17 at 09:30 Acetaminophen/ Hydrocodone Bitart (Lortab 7.5/325) 1 tab PRN Q6HRS PRN PO PAIN ; Start 01/19/17 at 09:15 Lisinopril (Prinivil) 20 mg DAILY PO ; Start 01/19/17 at 09:30 Polyethylene Glycol (miraLAX PACKET) 17 gm PRN DAILY PRN PO CONSTIPATION; Start 01/19/17 at 09:15 Sennosides (Senna) 8.6 mg PRN BID PRN PO CONSTIPATION (2ND CHOICE); Start 01/19 at 09:15 Tamsulosin HCl (Flomax) 0.4 mg HS PO ; Start 01/19/17 at 21:00 Gabapentin (Neurontin) 300 mg TID PO ; Start 01/19/17 at 14:00 Bisacodyl (Dulcolax Supp) 10 mg PRN DAILY PRN [place] CONSTIPATION; Start 01/19/17 at 09:15 Active Scripts Active Senna (Sennosides) 8.6 Mg Tablet 8.6 Mg PO PRN BID PRN Colace (Docusate Sodium) 100 Mg Capsule 100 Mg PO DAILY [Bisacodyl] 10 MG Supp.rect 10 Mg [place] PRN DAILY PRN Reported Cyclobenzaprine Hcl 10 Mg Tablet 1 Tab PO PRN Atorvastatin Calcium 20 Mg Tablet 20 Mg PO HS Aspirin 325 Mg Tablet 1 Tab PO DAILY Lisinopril 20 Mg Tablet 20 Mg PO DAILY Miralax (Polyethylene Glycol 3350) 17 Gm Powd.pack 1 Pkt PO PRN DAILY PRN Hydrocodone-Apap 7.5-325 (Hydrocodone Bit/Acetaminophen) 1 Each Tablet 1 Tab PO PRN Q6HRS PRN Gabapentin 300 Mg Capsule 300 Mg PO TID Cyclobenzaprine Hcl 10 Mg Tablet 10 Mg PO Flomax (Tamsulosin Hcl) 0.4 Mg Cap.er.24h 0.4 Mg PO HS Allergies Allergies: Coded Allergies: No Known Drug Allergies (Unverified , 11/08/13) ROS General: No: Chills, Night Sweats, Fatigue, Malaise, Appetite, Other PSYCHOLOGICAL ROS: No: Anxiety, Behavioral Disorder, Concentration difficultie , Decreased libido, Depression, Disorientation, Hallucinations, Hostility, Irritablity, Memory difficulties, Mood Swings, Obsessive thoughts, Physical abuse, Sexual abuse, Sleep disturbances, Suicidal ideation, Other Eyes: No Blurry vision, No Decreased vision, No Double vision, No Dry eyes, No Excessive tearing, No Eye Pain, No Itchy Eyes, No Loss of vision, No Photophobia , No Scotomata, No Uses contacts, No Uses glasses, No Other HEENT: No: Heacaches, Visual Changes, Hearing change, Nasal congestion, Nasal discharge, Oral lesions, Sinus pain, Sore Throat, Epistaxis, Sneezing, Snoring, Tinnitus, Vertigo, Vocal changes, Other ALLERGY AND IMMUNOLOGY: No: Hives, Insect Bite Sensitivity, Itchy/Watery Eyes, Nasal Congestion, Post Nasal Drip, Seasonal Allergies, Other Hematological and Lymphatic: No: Bleeding Problems, Blood Clots, Blood Transfusions, Brusing, Night Sweats, Pallor, Swollen Lymph Nodes, Other ENDOCRINE: No: Breast Changes, Galactorrhea, Hair Pattern Changes, Hot Flashes , Malaise/lethargy, Mood Swings, Palpitations, Polydipsia/polyuria, Skin Changes , Temperature Intolerance, Unexpected Weight Changes, Other Breast: No New/Changing Breast Lumps, No Nipple changes, No Nipple discharge, No Other Respiratory: No: Cough, Hemoptysis, Orthopnea, Pleuritic Pain, Shortness of breath, SOB with excertion, Sputum Changes, Stridor, Tachypnea, Wheezing, Other Cardiovascular: No Chest Pain, No Palpitations, No Orthopnea, No Paroxysmal Noc. Dyspnea, No Edema, No Lt Headedness, No Other Gastrointestinal: No Nausea, No Vomiting, No Abdominal Pain, No Diarrhea, No Constipation, No Melena, No Hematochezia, No Other Genitourinary: No Dysuria, No Frequency, No Incontinence, No Hematuria, No Retention, No Discharge, No Urgency, No Pain, No Flank Pain, No Other, No , No , No , No , No , No , No Musculoskeletal: No Gait Disturbance, No Joint Pain, No Joint Stiffness, No Joint Swelling, No Muscle Pain, No Muscular Weakness, No Pain In:, No Swelling In:, No Other Neurological: No Behavorial Changes, No Bowel/Bladder ControlChng, No Confusion , No Dizziness, No Gait Disturbance, No Headaches, No Impaired Coord/balance, No Memory Loss, No Numbness/Tingling, No Seizures, No Speech Problems, No Tremors, No Visual Changes, No Weakness, No Other Skin: No Dry Skin, No Eczema, No Hair Changes, No Lumps, No Mole Changes, No Mottling, No Nail Changes, No Pruritus, No Rash, No Skin Lesion Changes, No Other, No Acne Physical Exam General: Alert, Oriented X3, Cooperative, No acute distress HEENT: Atraumatic, PERRLA, EOMI, Mucous membr. moist/pink Lungs: Clear to auscultation, Normal air movement Heart: S1S2, other (HR 54 bpm, sinus) Cardiovascular: S1, S2, Other (as above) Abdomen: Normal bowel sounds, Soft, No tenderness, No hepatosplenomegaly, No masses Male Genitals Exam: normal genitalia, normal prostate Rectal Exam: not examined, mass PELVIC: Nml ext genitalia Extremities: No clubbing, No cyanosis, No edema, Normal pulses, No tenderness/ swelling Skin: No rashes, No breakdown, No significant lesion Neuro: Normal gait, Normal speech, Strength at 5/5 X4 ext, Normal tone, Sensation intact, Cranial nerves 3-12 NL, Reflexes 2+ Psych/Mental Status: Mental status NL, Mood NL Vitals Vitals Vital Signs Date Time Temp Pulse Resp B/P (MAP) Pulse Ox O2 Delivery O2 Flow Rate FiO2 01/19/17 09:30 50 161/79 01/19/17 06:00 11 96 Nasal Cannula 2.0 01/19/17 04:00 98.0 98.0 Labs Labs Laboratory Tests Test 01/18/17 20:20 01/18/17 20:40 01/18/17 20:46 White Blood Count 11.2 x10^3/uL (4.0-11.0) Red Blood Count 4.16 x10^6/uL (4.30-5.70) Hemoglobin 12.6 g/dL (13.0-17.5) Hematocrit 37.3 % (39.0-53.0) Mean Corpuscular Volume 90 fL (79-100) Mean Corpuscular Hemoglobin 30 pg (25-35) Mean Corpuscular Hemoglobin Concent 34 g/dL (31-37) Red Cell Distribution Width 13.5 % (11.5-14.5) Platelet Count 188 x10^3/uL (140-400) Neutrophils (%) (Auto) 63 % (31-73) Lymphocytes (%) (Auto) 23 % (24-48) Monocytes (%) (Auto) 11 % (0-9) Eosinophils (%) (Auto) 1 % (0-3) Basophils (%) (Auto) 1 % (0-3) Neutrophils # (Auto) 7.1 x10^3uL (1.8-7.7) Lymphocytes # (Auto) 2.6 x10^3/uL (1.0-4.8) Monocytes # (Auto) 1.2 x10^3/uL (0.0-1.1) Eosinophils # (Auto) 0.1 x10^3/uL (0.0-0.7) Basophils # (Auto) 0.1 x10^3/uL (0.0-0.2) Sodium Level 140 mmol/L (136-145) Potassium Level 4.7 mmol/L (3.5-5.1) Chloride Level 105 mmol/L (98-107) Carbon Dioxide Level 22 mmol/L (21-32) Anion Gap 13 (6-14) 13 mmol/L (6-14) Blood Urea Nitrogen 33 mg/dL (8-26) Creatinine 1.9 mg/dL (0.7-1.3) Estimated GFR (Cockcroft-Gault) 35.0 Glucose Level 112 mg/dL (70-99) 106 mg/dL (70-99) Calcium Level 10.3 mg/dL (8.5-10.1) Bedside Troponin I 0.00 ng/ml (<0.08) Bedside Hemoglobin 12.2 g/dL (14-18) Bedside Hematocrit 36 % (37-52) Bedside Sodium 138 mmol/L (135-145) Bedside Potassium 4.6 mmol/L (3.5-5.0) Bedside Chloride 107 mmol/L (98-110) Bedside Total CO2 24 mmol/L (23-32) Bedside Blood Urea Nitrogen 32 mg/dL (8-26) Bedside Creatinine 2.0 mg/dL (0.5-1.4) Bedside Ionized Calcium (Karine) 1.37 mmol/L (1.13-1.32) Laboratory Tests Test 01/18/17 20:20 01/18/17 20:40 01/18/17 20:46 White Blood Count 11.2 x10^3/uL (4.0-11.0) Red Blood Count 4.16 x10^6/uL (4.30-5.70) Hemoglobin 12.6 g/dL (13.0-17.5) Hematocrit 37.3 % (39.0-53.0) Mean Corpuscular Volume 90 fL (79-100) Mean Corpuscular Hemoglobin 30 pg (25-35) Mean Corpuscular Hemoglobin Concent 34 g/dL (31-37) Red Cell Distribution Width 13.5 % (11.5-14.5) Platelet Count 188 x10^3/uL (140-400) Neutrophils (%) (Auto) 63 % (31-73) Lymphocytes (%) (Auto) 23 % (24-48) Monocytes (%) (Auto) 11 % (0-9) Eosinophils (%) (Auto) 1 % (0-3) Basophils (%) (Auto) 1 % (0-3) Neutrophils # (Auto) 7.1 x10^3uL (1.8-7.7) Lymphocytes # (Auto) 2.6 x10^3/uL (1.0-4.8) Monocytes # (Auto) 1.2 x10^3/uL (0.0-1.1) Eosinophils # (Auto) 0.1 x10^3/uL (0.0-0.7) Basophils # (Auto) 0.1 x10^3/uL (0.0-0.2) Sodium Level 140 mmol/L (136-145) Potassium Level 4.7 mmol/L (3.5-5.1) Chloride Level 105 mmol/L (98-107) Carbon Dioxide Level 22 mmol/L (21-32) Anion Gap 13 (6-14) 13 mmol/L (6-14) Blood Urea Nitrogen 33 mg/dL (8-26) Creatinine 1.9 mg/dL (0.7-1.3) Estimated GFR (Cockcroft-Gault) 35.0 Glucose Level 112 mg/dL (70-99) 106 mg/dL (70-99) Calcium Level 10.3 mg/dL (8.5-10.1) Bedside Troponin I 0.00 ng/ml (<0.08) Bedside Hemoglobin 12.2 g/dL (14-18) Bedside Hematocrit 36 % (37-52) Bedside Sodium 138 mmol/L (135-145) Bedside Potassium 4.6 mmol/L (3.5-5.0) Bedside Chloride 107 mmol/L (98-110) Bedside Total CO2 24 mmol/L (23-32) Bedside Blood Urea Nitrogen 32 mg/dL (8-26) Bedside Creatinine 2.0 mg/dL (0.5-1.4) Bedside Ionized Calcium (Karine) 1.37 mmol/L (1.13-1.32) VTE Prophylaxis Ordered VTE Prophylaxis Devices: Yes VTE Pharmacological Prophylaxi: Yes Assessment/Plan Assessment/Plan 1. SYncope, with LOC 2. UNstable bradycardia resolved with temporary transcutaneous pacing 3. HX normal HOlter (recently) 4. HTN, controlled 5. Geriatric, high fall risk 6. MARICEL, vasomotor 7. Leukocytosis, likely reactive 8. 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
--- NOTE | 2017-01-19 11:29 | PDOC2 ---
CARDIAC CONSULT DATE OF CONSULT Date of Consult DATE: 01/19/17 TIME: 11:16 REASON FOR CONSULT Reason for Consult: unstable bradycardia REFERRING PHYSICIAN Referring Physician: White SOURCE Source: Chart review, Patient HISTORY OF PRESENT ILLNESS HISTORY OF PRESENT ILLNESS This is a 71 yo male who presented secondary to syncopal episode. Patient was sitting watching television after dinner last night when he suddenly became dizzy. Subsequently passed out with complete LOC. Patient unresponsive and significantly bradycardia upon EMS arrival so transcutaneous pacing was initiated. Patient denies any chest pain, palpitations, dizziness, diaphoresis, or SOA. Had recently admission for syncopal episode and had event monitor for two weeks, which noted multiple SVTs with longest at 13 beats, Mobitz type 1, SB 40s. Otherwise, baseline at SR with first degree AV block. PAST MEDICAL HISTORY Past Medical History Cardiovascular: HTN, syncope, carotid artery disease, bradycardia Pulmonary: No pertinent hx CENTRAL NERVOUS SYSTEM: old lacunar infarcts GI: Constipation Heme/Onc: No pertinent hx Hepatobiliary: No pertinent hx Psych: No pertinent hx Musculoskeletal: low back pain, Osteoarthritis, lumbar radiculopathy Rheumatologic: No pertinent hx Infectious disease: No pertinent hx ENT: Other (cataract) Renal/: BPH, UTI Endocrine: No pertinent hx Dermatology: No pertinent hx PAST SURGICAL HISTORY Past Surgical History Cataract Removal, Hernia Repair, Other (Cervical surgery x2, lumbar surgery x4; vasectomy; TURP) FAMILY HISTORY Family History noncontributory to age SOCIAL HISTORY Smoke: No ALCOHOL: none Drugs: None Lives: with Family CURRENT MEDICATIONS CURRENT MEDICATIONS Current Medications Medications (Trade) Dose Ordered Sig/Adalgisa Route PRN Reason Start Time Stop Time Status Last Admin Dose Admin Fentanyl Citrate (Fentanyl 2ml Vial) 50 mcg PRN Q1HR PRN IV pain 01/18/17 20:30 01/18/17 20:25 Dopamine HCl/ Dextrose 250 ml @ 0 mls/hr 1X ONCE IV 01/18/17 20:30 01/18/17 20:34 DC 01/18/17 20:36 Sodium Chloride 1,000 ml @ 75 mls/hr 1X ONCE IV 01/18/17 20:45 01/19/17 10:04 DC 01/18/17 20:22 Aspirin (Sheldon Aspirin) 325 mg DAILY PO 01/19/17 09:30 01/19/17 09:50 Docusate Sodium (Colace) 100 mg DAILY PO 01/19/17 09:30 01/19/17 09:50 ALLERGIES ALLERGIES: Coded Allergies: No Known Drug Allergies (Unverified , 11/08/13) PHYSICAL EXAM General: Alert, Oriented X3, Cooperative HEENT: Atraumatic, Mucous membr. moist/pink Lungs: Clear to auscultation, Normal air movement Heart: Normal S1, Normal S2, Other (SB rate 55. 2/6 systolic murmur ) Abdomen: Soft, No tenderness Extremities: No edema, Normal pulses Skin: No significant lesion Neuro: Normal speech, Sensation intact Psych/Mental Status: Mental status NL, Mood NL MUSCULOSKELETAL: Osteoarthritic changes both hands VITALS VITALS Vital Signs Date Time Temp Pulse Resp B/P (MAP) Pulse Ox O2 Delivery O2 Flow Rate FiO2 01/19/17 09:30 50 161/79 01/19/17 06:00 11 96 Nasal Cannula 2.0 01/19/17 04:00 98.0 98.0 LABS Lab: Laboratory Tests Test 01/18/17 20:20 01/18/17 20:40 01/18/17 20:46 White Blood Count 11.2 x10^3/uL (4.0-11.0) Red Blood Count 4.16 x10^6/uL (4.30-5.70) Hemoglobin 12.6 g/dL (13.0-17.5) Hematocrit 37.3 % (39.0-53.0) Mean Corpuscular Volume 90 fL (79-100) Mean Corpuscular Hemoglobin 30 pg (25-35) Mean Corpuscular Hemoglobin Concent 34 g/dL (31-37) Red Cell Distribution Width 13.5 % (11.5-14.5) Platelet Count 188 x10^3/uL (140-400) Neutrophils (%) (Auto) 63 % (31-73) Lymphocytes (%) (Auto) 23 % (24-48) Monocytes (%) (Auto) 11 % (0-9) Eosinophils (%) (Auto) 1 % (0-3) Basophils (%) (Auto) 1 % (0-3) Neutrophils # (Auto) 7.1 x10^3uL (1.8-7.7) Lymphocytes # (Auto) 2.6 x10^3/uL (1.0-4.8) Monocytes # (Auto) 1.2 x10^3/uL (0.0-1.1) Eosinophils # (Auto) 0.1 x10^3/uL (0.0-0.7) Basophils # (Auto) 0.1 x10^3/uL (0.0-0.2) Sodium Level 140 mmol/L (136-145) Potassium Level 4.7 mmol/L (3.5-5.1) Chloride Level 105 mmol/L (98-107) Carbon Dioxide Level 22 mmol/L (21-32) Anion Gap 13 (6-14) 13 mmol/L (6-14) Blood Urea Nitrogen 33 mg/dL (8-26) Creatinine 1.9 mg/dL (0.7-1.3) Estimated GFR (Cockcroft-Gault) 35.0 Glucose Level 112 mg/dL (70-99) 106 mg/dL (70-99) Calcium Level 10.3 mg/dL (8.5-10.1) Bedside Troponin I 0.00 ng/ml (<0.08) Bedside Hemoglobin 12.2 g/dL (14-18) Bedside Hematocrit 36 % (37-52) Bedside Sodium 138 mmol/L (135-145) Bedside Potassium 4.6 mmol/L (3.5-5.0) Bedside Chloride 107 mmol/L (98-110) Bedside Total CO2 24 mmol/L (23-32) Bedside Blood Urea Nitrogen 32 mg/dL (8-26) Bedside Creatinine 2.0 mg/dL (0.5-1.4) Bedside Ionized Calcium (Karine) 1.37 mmol/L (1.13-1.32) ECHOCARDIOGRAM ECHOCARDIOGRAM <Conclusion> Left ventricle systolic function is normal. The Ejection Fraction is 55-60%. There is normal LV segmental wall motion. Doppler and Color Flow revealed mild to moderate aortic regurgitation. DATE: 12/15/16 1353 ASSESSMENT/PLAN ASSESSMENT/PLAN 1. 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 Syncope: Again at 01/18/2017 and other episode 12/14/2016. Related to #1 3. MARICEL: prerenal, likely hypoperfusion from arrhythmia. 4. HLP Recommendations 1. Initially with TCP initiated by EMS. Off TCP currently HR in the 50s with dopamine drip and will continue 2. Plan for PPM tomorrow. Risks and benefits explained and agreeable 3. BMP, Mg, f/u lipids 4. 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
[2017-01-19 12:58] LABS: CALCIUM 9.7 mg/dL (8.5-10.1); CREATININE 1.5 mg/dL (0.7-1.3); POTASSIUM 4.9 mmol/L (3.5-5.1)
[2017-01-19 13:06] LABS: CHOLESTEROL/HDL RATIO 3.8
[2017-01-19] MEDS: GABAPENTIN 300 MG CAPSULE. PO SCH ×2 (14:17→21:07)
[2017-01-19] MEDS: TAMSULOSIN 0.4 MG CAP.ER.24H. PO SCH (21:07)
[2017-01-19] MEDS: ATORVASTATIN CALCIUM 20 MG TABLET PO SCH (21:07)
[2017-01-19] MEDS: LISINOPRIL 10 MG TABLET PO SCH (21:07)
[2017-01-20] VITALS (21 sets, daily range): BP systolic 113–177; BP diastolic 49–94
[2017-01-20] MEDS: LISINOPRIL 10 MG TABLET PO SCH ×2 (08:52→20:26)
[2017-01-20] MEDS: DOCUSATE SODIUM 100 MG CAPSULE. PO SCH (09:01)
[2017-01-20] MEDS: ASPIRIN 325 MG TABLET PO SCH (09:01)
[2017-01-20] MEDS: GABAPENTIN 300 MG CAPSULE. PO SCH ×3 (09:01→20:26)
--- NOTE | 2017-01-20 09:35 | PDOC ---
PROGRESS NOTES Chief Complaint Chief Complaint 1. SYncope, with LOC, POA - sec to severe bradycardia 2. UNstable bradycardia resolved with temporary transcutaneous pacing 3. HX normal HOlter (recently) 4. HTN, controlled 5. Geriatric, high fall risk 6. MARICEL, vasomotor 7. Leukocytosis, likely reactive 8. MIld anemia - monitor (hgb 11) History of Present Illness History of Present Illness No issues has been off temp pacer\ BUt will now get a permanent pacer HGb 12, WBC 11 CREa 1.5 - better from 1.9 PLAN: Permanent PAcemaker insertion later Vitals Vitals Vital Signs Date Time Temp Pulse Resp B/P (MAP) Pulse Ox O2 Delivery O2 Flow Rate FiO2 01/20/17 08:52 62 01/20/17 06:00 16 164/71 (102) 96 Nasal Cannula 2.0 01/20/17 04:00 98.0 98.0 Physical Exam General: Alert, Oriented X3, Cooperative Heart: Normal S1, Normal S2, Other (SB rate 55. 2/6 systolic murmur ) Lungs: Clear Abdomen: Soft, No tenderness Extremities: No edema, Normal pulses Skin: No rashes, No significant lesion Labs LABS Laboratory Tests Test 01/19/17 12:25 Sodium Level 143 mmol/L (136-145) Potassium Level 4.9 mmol/L (3.5-5.1) Chloride Level 110 mmol/L (98-107) Carbon Dioxide Level 25 mmol/L (21-32) Anion Gap 8 (6-14) Blood Urea Nitrogen 29 mg/dL (8-26) Creatinine 1.5 mg/dL (0.7-1.3) Estimated GFR (Cockcroft-Gault) 46.0 Glucose Level 99 mg/dL (70-99) Calcium Level 9.7 mg/dL (8.5-10.1) Magnesium Level 2.0 mg/dL (1.8-2.4) Triglycerides Level 81 mg/dL (0-150) Cholesterol Level 160 mg/dL (0-200) LDL Cholesterol, Calculated 102 mg/dL (0-100) VLDL Cholesterol, Calculated 16 mg/dL (0-40) Non-HDL Cholesterol Calculated 118 mg/dL (0-129) HDL Cholesterol 42 mg/dL (40-60) Cholesterol/HDL Ratio 3.8 Review of Systems Review of Systems denies all 14 pt Assessment and Plan Assessmemt and Plan Problems Medical Problems: (1) Acute renal failure Status: Acute (2) Bradycardia Status: Acute (3) Syncope Status: Acute Problems: Comment Review of Relevant I have reviewed the following items helena (where applicable) has been applied. Labs Laboratory Tests Test 01/18/17 20:20 01/18/17 20:40 01/18/17 20:46 01/18/17 21:40 White Blood Count 11.2 x10^3/uL (4.0-11.0) Red Blood Count 4.16 x10^6/uL (4.30-5.70) Hemoglobin 12.6 g/dL (13.0-17.5) Hematocrit 37.3 % (39.0-53.0) Mean Corpuscular Volume 90 fL (79-100) Mean Corpuscular Hemoglobin 30 pg (25-35) Mean Corpuscular Hemoglobin Concent 34 g/dL (31-37) Red Cell Distribution Width 13.5 % (11.5-14.5) Platelet Count 188 x10^3/uL (140-400) Neutrophils (%) (Auto) 63 % (31-73) Lymphocytes (%) (Auto) 23 % (24-48) Monocytes (%) (Auto) 11 % (0-9) Eosinophils (%) (Auto) 1 % (0-3) Basophils (%) (Auto) 1 % (0-3) Neutrophils # (Auto) 7.1 x10^3uL (1.8-7.7) Lymphocytes # (Auto) 2.6 x10^3/uL (1.0-4.8) Monocytes # (Auto) 1.2 x10^3/uL (0.0-1.1) Eosinophils # (Auto) 0.1 x10^3/uL (0.0-0.7) Basophils # (Auto) 0.1 x10^3/uL (0.0-0.2) Sodium Level 140 mmol/L (136-145) Potassium Level 4.7 mmol/L (3.5-5.1) Chloride Level 105 mmol/L (98-107) Carbon Dioxide Level 22 mmol/L (21-32) Anion Gap 13 (6-14) 13 mmol/L (6-14) Blood Urea Nitrogen 33 mg/dL (8-26) Creatinine 1.9 mg/dL (0.7-1.3) Estimated GFR (Cockcroft-Gault) 35.0 Glucose Level 112 mg/dL (70-99) 106 mg/dL (70-99) Calcium Level 10.3 mg/dL (8.5-10.1) Bedside Troponin I 0.00 ng/ml (<0.08) Bedside Hemoglobin 12.2 g/dL (14-18) Bedside Hematocrit 36 % (37-52) Bedside Sodium 138 mmol/L (135-145) Bedside Potassium 4.6 mmol/L (3.5-5.0) Bedside Chloride 107 mmol/L (98-110) Bedside Total CO2 24 mmol/L (23-32) Bedside Blood Urea Nitrogen 32 mg/dL (8-26) Bedside Creatinine 2.0 mg/dL (0.5-1.4) Bedside Ionized Calcium (Karine) 1.37 mmol/L (1.13-1.32) Nasal Screen MRSA (PCR) Negative (Negative) Test 01/19/17 12:25 Sodium Level 143 mmol/L (136-145) Potassium Level 4.9 mmol/L (3.5-5.1) Chloride Level 110 mmol/L (98-107) Carbon Dioxide Level 25 mmol/L (21-32) Anion Gap 8 (6-14) Blood Urea Nitrogen 29 mg/dL (8-26) Creatinine 1.5 mg/dL (0.7-1.3) Estimated GFR (Cockcroft-Gault) 46.0 Glucose Level 99 mg/dL (70-99) Calcium Level 9.7 mg/dL (8.5-10.1) Magnesium Level 2.0 mg/dL (1.8-2.4) Triglycerides Level 81 mg/dL (0-150) Cholesterol Level 160 mg/dL (0-200) LDL Cholesterol, Calculated 102 mg/dL (0-100) VLDL Cholesterol, Calculated 16 mg/dL (0-40) Non-HDL Cholesterol Calculated 118 mg/dL (0-129) HDL Cholesterol 42 mg/dL (40-60) Cholesterol/HDL Ratio 3.8 Laboratory Tests Test 01/19/17 12:25 Sodium Level 143 mmol/L (136-145) Potassium Level 4.9 mmol/L (3.5-5.1) Chloride Level 110 mmol/L (98-107) Carbon Dioxide Level 25 mmol/L (21-32) Anion Gap 8 (6-14) Blood Urea Nitrogen 29 mg/dL (8-26) Creatinine 1.5 mg/dL (0.7-1.3) Estimated GFR (Cockcroft-Gault) 46.0 Glucose Level 99 mg/dL (70-99) Calcium Level 9.7 mg/dL (8.5-10.1) Magnesium Level 2.0 mg/dL (1.8-2.4) Triglycerides Level 81 mg/dL (0-150) Cholesterol Level 160 mg/dL (0-200) LDL Cholesterol, Calculated 102 mg/dL (0-100) VLDL Cholesterol, Calculated 16 mg/dL (0-40) Non-HDL Cholesterol Calculated 118 mg/dL (0-129) HDL Cholesterol 42 mg/dL (40-60) Cholesterol/HDL Ratio 3.8 Medications Current Medications Fentanyl Citrate (Fentanyl 2ml Vial) 100 mcg STK-MED ONCE .ROUTE ; Start at 20:22; Stop 01/18/17 at 20:23; Status DC Fentanyl Citrate (Fentanyl 2ml Vial) 50 mcg PRN Q1HR PRN IV pain Last administered on 01/18/17 20:25; Start 01/18/17 at 20:30 Dopamine HCl/ Dextrose 250 ml @ 0 mls/hr 1X ONCE IV Last administered on 20:36; Start 01/18/17 at 20:30; Stop 01/18/17 at 20:34; Status DC Sodium Chloride 1,000 ml @ 75 mls/hr 1X ONCE IV Last administered on 20:22; Start 01/18/17 at 20:45; Stop 01/19/17 at 10:04; Status DC Ondansetron HCl (Zofran) 4 mg PRN Q8HRS PRN IV NAUSEA/VOMITING; Start 01/18/17 at 20:45; Stop 01/19/17 at 20:44; Status DC Acetaminophen (Tylenol) 650 mg PRN Q4HRS PRN PO FEVER; Start 01/18/17 at 20:45 ; Stop 01/19/17 at 20:44; Status DC Aspirin (Sheldon Aspirin) 325 mg DAILY PO Last administered on 01/20/17 09:01; Start 01/19/17 at 09:30 Atorvastatin Calcium (Lipitor) 20 mg HS PO Last administered on 01/19/17 21:07 ; Start 01/19/17 at 21:00 Docusate Sodium (Colace) 100 mg DAILY PO Last administered on 01/20/17 09:01; Start 01/19/17 at 09:30 Acetaminophen/ Hydrocodone Bitart (Lortab 7.5/325) 1 tab PRN Q6HRS PRN PO PAIN ; Start 01/19/17 at 09:15 Lisinopril (Prinivil) 20 mg DAILY PO ; Start 01/19/17 at 09:30; Stop 01/19/17 at 21:00; Status DC Polyethylene Glycol (miraLAX PACKET) 17 gm PRN DAILY PRN PO CONSTIPATION; Start 01/19/17 at 09:15 Sennosides (Senna) 8.6 mg PRN BID PRN PO CONSTIPATION (2ND CHOICE); Start 01/19 at 09:15 Tamsulosin HCl (Flomax) 0.4 mg HS PO Last administered on 01/19/17 21:07; Start 01/19/17 at 21:00 Gabapentin (Neurontin) 300 mg TID PO Last administered on 01/20/17 09:01; Start 01/19/17 at 14:00 Bisacodyl (Dulcolax Supp) 10 mg PRN DAILY PRN MT CONSTIPATION; Start 01/19/17 at 09:15 Cefazolin Sodium/ Dextrose 50 ml @ 100 mls/hr 1X ONCE IV ; Start 01/20/17 at 06 :00; Stop 01/20/17 at 06:29; Status DC Lisinopril (Prinivil) 10 mg BID PO Last administered on 01/19/17 21:07; Start 01/19/17 at 21:00 Active Scripts Active Senna (Sennosides) 8.6 Mg Tablet 8.6 Mg PO PRN BID PRN Colace (Docusate Sodium) 100 Mg Capsule 100 Mg PO DAILY [Bisacodyl] 10 MG Supp.rect 10 Mg MT PRN DAILY PRN Reported Cyclobenzaprine Hcl 10 Mg Tablet 1 Tab PO PRN Atorvastatin Calcium 20 Mg Tablet 20 Mg PO HS Aspirin 325 Mg Tablet 1 Tab PO DAILY Lisinopril 20 Mg Tablet 20 Mg PO DAILY Miralax (Polyethylene Glycol 3350) 17 Gm Powd.pack 1 Pkt PO PRN DAILY PRN Hydrocodone-Apap 7.5-325 (Hydrocodone Bit/Acetaminophen) 1 Each Tablet 1 Tab PO PRN Q6HRS PRN Gabapentin 300 Mg Capsule 300 Mg PO TID Cyclobenzaprine Hcl 10 Mg Tablet 10 Mg PO Flomax (Tamsulosin Hcl) 0.4 Mg Cap.er.24h 0.4 Mg PO HS Vitals/I & O Vital Sign - Last 24 Hours 01/19/17 01/19/17 01/19/17 01/19/17 10:00 11:00 12:00 12:00 Temp 98.1 98.1 Pulse 56 58 54 Resp 11 11 11 B/P (MAP) 187/82 (117) 125/58 (80) 141/67 (91) Pulse Ox 96 96 96 O2 Delivery Nasal Cannula Nasal Cannula Nasal Cannula Room Air O2 Flow Rate 2.0 2.0 2.0 01/19/17 01/19/17 01/19/17 01/19/17 13:00 14:00 15:00 16:00 Pulse 52 60 56 Resp 11 11 B/P (MAP) 124/58 (80) 145/66 (92) 143/65 (91) Pulse Ox 96 96 96 O2 Delivery Nasal Cannula Nasal Cannula Nasal Cannula Room Air O2 Flow Rate 2.0 2.0 2.0 01/19/17 01/19/17 01/19/17 01/19/17 16:00 17:00 18:00 19:00 Temp 97.6 97.6 Pulse 50 52 54 52 Resp 11 11 11 16 B/P (MAP) 146/62 (90) 174/74 (107) 141/67 (91) 174/74 (107) Pulse Ox 96 96 96 94 O2 Delivery Nasal Cannula Nasal Cannula Nasal Cannula Nasal Cannula O2 Flow Rate 2.0 2.0 2.0 2.0 01/19/17 01/19/17 01/19/17 01/19/17 20:00 20:00 21:00 21:07 Temp 97.9 97.9 Pulse 54 53 57 Resp 17 B/P (MAP) 170/74 (106) 181/98 (125) 170/74 Pulse Ox 94 95 O2 Delivery Room Air Nasal Cannula Nasal Cannula O2 Flow Rate 2.0 2.0 01/19/17 01/19/17 01/20/17 6/1/17 22:00 23:00 00:00 00:00 Temp 98.5 98.5 Pulse 59 59 51 Resp 22 22 16 B/P (MAP) 176/79 (111) 136/65 (88) 136/65 (88) Pulse Ox 96 96 91 O2 Delivery Nasal Cannula Nasal Cannula Room Air Nasal Cannula O2 Flow Rate 2.0 2.0 2.0 01/20/17 01/20/17 01/20/17 01/20/17 01:00 02:00 03:00 04:00 Temp 98.0 98.0 Pulse 51 49 48 49 Resp 17 9 16 16 B/P (MAP) 174/64 (100) 163/59 (93) 156/49 (84) 168/73 (104) Pulse Ox 91 95 95 96 O2 Delivery Nasal Cannula Nasal Cannula Nasal Cannula Nasal Cannula O2 Flow Rate 2.0 2.0 2.0 2.0 01/20/17 01/20/17 01/20/17 01/20/17 04:00 05:00 06:00 08:52 Pulse 54 55 62 Resp 12 16 B/P (MAP) 163/59 (93) 164/71 (102) Pulse Ox 95 96 O2 Delivery Room Air Nasal Cannula Nasal Cannula O2 Flow Rate 2.0 2.0 Intake and Output 01/19/17 01/19/17 01/20/17 15:00 23:00 07:00 Intake Total 2319 ml Output Total 1800 ml 1875 ml 775 ml Balance -1800 ml -1875 ml 1544 ml AMBROSIO DUNCAN MD Jan 20, 2017 09:34
[2017-01-20] MEDS ORDERED: MIDAZOLAM HCL/PF 5 MG/5 ML VIAL. ONE (13:14)
[2017-01-20] MEDS ORDERED: fentaNYL PF VIAL 250 MCG/5 ML VIAL ONE (13:14)
[2017-01-20] MEDS ORDERED: LIDOCAINE 2%/EPI 1:100,000 20 ML VIAL. ONE (13:21)
[2017-01-20] MEDS ORDERED: fentaNYL PF VIAL 250 MCG/5 ML VIAL IV ONE (13:30)
[2017-01-20] MEDS ORDERED: BACITRACIN 50,000 UNIT in IV NORMAL SALINE 250ML 250 ML IRR ONE (13:30)
[2017-01-20] MEDS ORDERED: LIDOCAINE 2%/EPI 1:100,000 20 ML VIAL. IJ ONE (13:45)
[2017-01-20] MEDS ORDERED: MIDAZOLAM HCL/PF 5 MG/5 ML VIAL. IV ONE (13:45)
[2017-01-20] MEDS ORDERED: NO ANTICOAGULANT THERAPY. MC PRN (14:45)
--- NOTE | 2017-01-20 15:18 | CARD ---
APPROVED REPORT Procedure(s) performed: Dual chamber pacemaker implantation. HISTORY : The patient is a 71 year-old male with a history of . INDICATION The indication(s) include : syncope, 71 y.o male with syncope and unresponsiveness with documented br adycardia. . PROCEDURE NARRATIVE 30 mL of 2% lidocaine was infiltrated into the skin and subcutaneous tissues for local anesthesia. A n incision was made over the left infraclavicular fossa and using blunt dissection and cautery a pock et was created. Venous access was obtained in the right subclavian vein and tw 8 Indian sheaths were inserted. Subsequently, a [employer] . Jacob bipolar active fixation right ventricular lead model [id number], serial nu mber [id number] was advanced under fluoroscopic guidance and the tip was positioned in the right ventr icular apex. Following this, a [employer]. Jacob bipolar active fixation right atrial lead model [id number], serial number [id number] was placed in the right atrial appendage under fluoroscopy guidance. The le ads were secured into place and were attached to a [employer] Jacob dual-chamber permanent pacemaker generato r model [id number], SN [id number]. This was placed in the pocket that was subsequently closed in 3 layers. Hemostasis was secured. At the end of procedure, the right ventricular lead showed sensing amplitude of 12 mV, impedance of 6 60 ohms and a threshold of 0.75volts at 0.4ms. The right atrial lead showed a sensing amplitude of 3 .9 millivolts, impedance of 510 ohms and a threshold of 0.5 volts. Patient tolerated the procedure we ll. There were no immediate complications. Conclusion 1. Successful insertion of an MRI compatible [employer] Jacob dual chamber pacemaker for SSS and syncope. Recommendations Routine CXR and follow up in the office in 1 week for wound check.
--- NOTE | 2017-01-20 15:26 | RAD ---
Indication post pacemaker placement. Assess for potential complication. A single view of the chest was obtained and is compared to an examination 2 days previously. In the interval a bipolar cardiac pacing device has been placed. No complication is seen and specifically there is no evidence of pneumothorax. There's been no additional change relative to the previous exam. IMPRESSION: Interval placement of bipolar cardiac pacing device. No complication seen
[2017-01-20] MEDS: TAMSULOSIN 0.4 MG CAP.ER.24H. PO SCH (20:26)
[2017-01-20] MEDS: ATORVASTATIN CALCIUM 20 MG TABLET PO SCH (20:26)
[2017-01-21 03:00] VITALS: BP 156/103
--- NOTE | 2017-01-21 08:54 | RAD ---
Indication post pacemaker placement. PA and lateral views of the chest were obtained. Comparison is made to a study one day earlier. Heart and pulmonary vessels are unremarkable. Bipolar cardiac pacing device is noted. No complication is seen. Specifically no pneumothorax is seen. IMPRESSION: No acute finding. Bipolar cardiac pacing device. No complication seen
[2017-01-21 09:21] VITALS: BP 156/103
[2017-01-21] MEDS: DOCUSATE SODIUM 100 MG CAPSULE. PO SCH (09:21)
[2017-01-21] MEDS: GABAPENTIN 300 MG CAPSULE. PO SCH (09:21)
[2017-01-21] MEDS: ASPIRIN 325 MG TABLET PO SCH (09:21)
[2017-01-21] MEDS: LISINOPRIL 10 MG TABLET PO SCH (09:21)
--- NOTE | 2017-01-21 10:05 | PDOC3 ---
Discharge Summary Visit Information Date of Admission: January 18, 2017 Date of Discharge: Jan 21, 2017 Admitting Diagnosis Comment: 1. SYncope, with LOC, POA - sec to severe bradycardia 2. UNstable bradycardia resolved with temporary transcutaneous pacing 3. HX normal HOlter (recently) 4. HTN, controlled 5. Geriatric, high fall risk 6. MARICEL, vasomotor 7. Leukocytosis, likely reactive 8. MIld anemia - monitor (hgb 11) Final Diagnosis 1. SYncope, with LOC, POA - sec to severe bradycardia 2. UNstable bradycardia resolved with temporary transcutaneous pacing 3. HX normal HOlter (recently) 4. HTN, controlled 5. Geriatric, high fall risk 6. MARICEL, vasomotor 7. Leukocytosis, likely reactive 8. MIld anemia - monitor (hgb 11) Brief Hospital Course Allergies Allergies Coded Allergies Type Severity Reaction Last Updated Verified No Known Drug Allergies 11/08/13 No Vital Signs Vital Signs Date Time Temp Pulse Resp B/P (MAP) Pulse Ox O2 Delivery O2 Flow Rate FiO2 01/21/17 09:21 60 156/103 01/21/17 03:00 98.4 21 96 Nasal Cannula 2.0 98.4 Lab Results Laboratory Tests Test 01/19/17 12:25 Sodium Level 143 mmol/L (136-145) Potassium Level 4.9 mmol/L (3.5-5.1) Chloride Level 110 mmol/L (98-107) Carbon Dioxide Level 25 mmol/L (21-32) Anion Gap 8 (6-14) Blood Urea Nitrogen 29 mg/dL (8-26) Creatinine 1.5 mg/dL (0.7-1.3) Estimated GFR (Cockcroft-Gault) 46.0 Glucose Level 99 mg/dL (70-99) Calcium Level 9.7 mg/dL (8.5-10.1) Magnesium Level 2.0 mg/dL (1.8-2.4) Triglycerides Level 81 mg/dL (0-150) Cholesterol Level 160 mg/dL (0-200) LDL Cholesterol, Calculated 102 mg/dL (0-100) VLDL Cholesterol, Calculated 16 mg/dL (0-40) Non-HDL Cholesterol Calculated 118 mg/dL (0-129) HDL Cholesterol 42 mg/dL (40-60) Cholesterol/HDL Ratio 3.8 Brief Hospital Course Mr. Aguirre is a 71 old [sex] who presented with [ ] 71 y.o very pleasant male admitted for LOC, syncope after exertion yesterday. Was doing some gardening, lives at home with , ambulates with cane or electronic wheelchair when going to stores, syncopized yesterday,no injuries, but had total LOC. EMS called, severely bradycardic, once temp transcutaneous pacer applied, regained consciousness to GCS 15. NO sxs, just some discomfort from pacer, Admitted henceforth, started on dopamine gtt by cards overnight. NOw off temp transcutaneous pacer since 3 AM but still on dopa gtt, HR 50s, BP 140/70, VS beautiful, denies sxs, but is laying in bed,. Last admit for syncope was 1 month ago, thought to be dehydration, had no evidence of ectopy in house and by 14 day holter which he wore as Rxd by cards as OP. HAs been NPO, talks about permanent venous pacer pending his clinical course. COURSE: had permament pacer placed, no issues, stable to dc with ff up cards as oP Discharge Information Condition at Discharge: Improved, Stable Follow Up: Weeks (ff up cards as instructed) Disposition/Orders: D/C to Home Scheduled Aspirin (Aspirin), 1 TAB PO DAILY, (Reported) Atorvastatin Calcium (Atorvastatin Calcium), 20 MG PO HS, (Reported) Cyclobenzaprine Hcl (Cyclobenzaprine Hcl), 1 TAB PO PRN, (Reported) Docusate Sodium (Colace), 100 MG PO DAILY Gabapentin (Gabapentin), 300 MG PO TID, (Reported) Lisinopril (Lisinopril), 20 MG PO DAILY, (Reported) Tamsulosin Hcl (Flomax), 0.4 MG PO HS, (Reported) Scheduled PRN Hydrocodone Bit/Acetaminophen (Hydrocodone-Apap 7.5-325 ), 1 TAB PO PRN Q6HRS PRN for PAIN, (Reported) Polyethylene Glycol 3350 (Miralax), 1 PKT PO PRN DAILY PRN for CONSTIPATION, ( Reported) Sennosides (Senna), 8.6 MG PO PRN BID PRN for CONSTIPATION (2ND CHOICE) [Bisacodyl], 10 MG DE PRN DAILY PRN for CONSTIPATION Miscellaneous Medications Cyclobenzaprine Hcl (Cyclobenzaprine Hcl), 10 MG PO, (Reported) AMBROSIO DUNCAN MD Jan 21, 2017 10:05
--- NOTE | 2017-01-21 11:27 | PDOC ---
CARDIO Progress Notes Date and Time Date of Service 01/21/17 Time of Evaluation 1115 Subjective Subjective: No Chest Pain, No shortness of breath, No Palpitations, Other ( mild incisional pain) Vitals Vitals Vital Signs Date Time Temp Pulse Resp B/P (MAP) Pulse Ox O2 Delivery O2 Flow Rate FiO2 01/21/17 09:21 60 156/103 01/21/17 03:00 98.4 21 96 Nasal Cannula 2.0 98.4 Weight Weight [ ] Input and Output Intake and Output Intake and Output 01/21/17 07:00 Output Total 2125 ml Balance -2125 ml Output Urine Total 2125 ml Physical Exam HEENT: Neck Supple W Full Motion Chest: Symmetric, Other (right chest PPM incision well-approximated with steri strips intact. site clean and dry. ) LUNGS: Clear to Auscultation Heart: S1S2, RRR, murmurs (2/6 systolic murmur ), other (tele: SR with intermittent pacing ) Abdomen: Soft N/T Extremities: No Calf Tenderness Neurology: alert, oriented, follow commands Assessment Assessment 1. Syncope 2. SSS; s/p St. Jacob's dual chamber PPM 3. MARICEL 4. HLP Recommendations CXR WNL Device check with normal function May discharge from CV standpoint and f/u in our office in 1 week with RN for wound check as scheduled SILVIA NAYLOR APRN Jan 21, 2017 11:27
== END 2017-01-21 12:52 | disposition home or self-care (01) | DRG 242 ==
LOC: ER 20:13 → 1 WEST ICU 20:35
PROVIDERS: ADMIT Internal Medicine; ATTEND Internal Medicine
PROC: 0JH606Z Insertion of Pacemaker, Dual Chamber into Chest Subcutaneous Tissue and Fascia, Open Approach (ICD-10-PCS; principal; 2017-01-20)
PROC: 02H63JZ Insertion of Pacemaker Lead into Right Atrium, Percutaneous Approach (ICD-10-PCS; 2017-01-20)
PROC: 02HK3JZ Insertion of Pacemaker Lead into Right Ventricle, Percutaneous Approach (ICD-10-PCS; 2017-01-20)
DX: I49.5 Sick sinus syndrome (principal); N17.0 Acute kidney failure with tubular necrosis; I44.0 Atrioventricular block, first degree; D64.9 Anemia, unspecified; K59.00 Constipation, unspecified; I10 Essential (primary) hypertension; R40.2410 Glasgow coma scale score 13-15, unspecified time; M19.90 Unspecified osteoarthritis, unspecified site; N40.0 Benign prostatic hyperplasia without lower urinary tract symptoms; Z91.81 History of falling; Z87.440 Personal history of urinary (tract) infections; Z98.49 Cataract extraction status, unspecified eye
CPT/HCPCS: 33208; 36415; 71010; 71020; 80047; 80048; 80061; 83735; 84484; 85027; 87641; 93005; 96361; 96374; 96375; C1785; C1898; J0690; J1265; J2250; J3010; J3490; J7030; J7050; 97535; 99285-25

== ENCOUNTER → 2018-11-03 | Outpatient (CLI) | payer MEDICARE ==
[~2018-11-03] MED LIST changes: -ASPI325T4 PO; +ASPI325T8 PO; +DOCU-109 PO; -DOCU-27 PO; -GABA-586 PO; +GABA300C18 PO; -HYDR-2762 PO; +HYDR-2765 PO; +SENN-80 PO; -SENN8.6T3 PO
--- NOTE | 2018-11-03 13:19 | CARD ---
MR#: [id number] Date of Study: 11/03/2018 Ordering Physician: MINDI CANCHOLA, Referring Physician: MINDI CANCHOLA, Tech: Geovanna Alejo APPROVED REPORT EXAM: Two-dimensional and M-mode echocardiogram with Doppler and color Doppler. Other Information Quality : AverageHR: 64bpm INDICATION Arrhythmia Sick Sinus Syndrome RISK FACTORS Hypertension Previous smoker 2D DIMENSIONS RVDd2.7 (2.9-3.5cm)Left Atrium(2D)3.4 (1.6-4.0cm) IVSd1.2 (0.7-1.1cm)Aortic Root(2D)3.3 (2.0-3.7cm) LVDd5.3 (3.9-5.9cm)LVOT Diameter2.2 (1.8-2.4cm) PWd1.3 (0.7-1.1cm)LVDs3.2 (2.5-4.0cm) FS (%) 38.9 %SV91.4 ml LVEF(%)68.9 (>50%) Aortic Valve AoV Peak Filippo.241.0cm/sAoV VTI49.9cm AO Peak GR.23.2mmHgLVOT Peak Filippo.106.1cm/s LVOT VTI 25.89cmAO Mean GR.12mmHg DAMI (VMAX)1.53fg7ZOF (VTI)1.96cm2 AI P 1/2 Pjpp681gq Mitral Valve MV E Tdslhlcf41.7cm/sMV DECEL [id number] MV A Ebsvfagr25.5cm/sMV [id number] E/A Ratio0.9MVA (PHT)5.84cm2 TDI E/Lateral E'9.4E/Medial E'11.4 Pulmonary Valve PV Peak Dpvxtbxp948.6cm/sPV Peak Grad.4mmHg Tricuspid Valve TR P. Xkqbzoym411hm/sTR Peak Gr.21mmHg Pulmonary Vein S1 Jpwkjwpr68.6cm/sD2 Dawrlnkf73.7cm/s PVa [id number] LEFT VENTRICLE The left ventricle is normal size. There is moderate concentric left ventricular hypertrophy. The lef t ventricular systolic function is normal and the ejection fraction is within normal range. The Eject ion Fraction is >55%. There is normal LV segmental wall motion. Transmitral Doppler flow pattern is G rade I-abnormal relaxation pattern. RIGHT VENTRICLE The right ventricle is normal size. There is normal right ventricular wall thickness. The right ventr icular systolic function is normal. ATRIA The left atrium size is normal. The right atrium size is normal. The interatrial septum is intact wit h no evidence for an atrial septal defect or patent foramen ovale as noted on 2-D or Doppler imaging. AORTIC VALVE The aortic valve is thickened but opens well. Doppler and Color Flow revealed moderate aortic regurgi tation. Calculated aortic valve area is 1.96 cm2 with maximum pressure gradient of 23 mmHg and mean p ressure gradient of 12 mmHg. There is no significant aortic valvular stenosis. MITRAL VALVE The mitral valve is calcified but opens well. There is no evidence of mitral valve prolapse. There is no mitral valve stenosis. Doppler and Color-flow revealed trace mitral regurgitation. TRICUSPID VALVE The tricuspid valve is normal in structure and function. Doppler and Color Flow revealed trace tricus pid regurgitation. There is no tricuspid valve stenosis. PULMONIC VALVE The pulmonic valve is not well visualized. Doppler and Color Flow revealed trace pulmonic valvular re gurgitation. There is no pulmonic valvular stenosis. GREAT VESSELS The aortic root is normal in size. The IVC is normal in size and collapses >50% with inspiration. PERICARDIAL EFFUSION There is no evidence of significant pericardial effusion. Critical Notification Critical Value: No <Conclusion> The left ventricular systolic function is normal and the ejection fraction is within normal range. Th e Ejection Fraction is >55%. There is normal LV segmental wall motion. Doppler and Color Flow revealed moderate aortic regurgitation. Signed by : Mindi Canchola, Electronically Approved : 11/03/2018 13:19:10
== END | disposition home or self-care (01) ==
LOC: ECHO 09:52
PROVIDERS: ATTEND Internal Medicine Cardiovascular Disease
DX: I35.1 Nonrheumatic aortic (valve) insufficiency (principal); I49.5 Sick sinus syndrome; I11.9 Hypertensive heart disease without heart failure; Z87.891 Personal history of nicotine dependence
CPT/HCPCS: 93306

== ENCOUNTER → 2020-02-15 | Outpatient (CLI) | payer MEDICARE ==
[~2020-02-15] MED LIST changes: +SENN-182 PO; -SENN-80 PO
--- NOTE | 2020-02-15 15:43 | CARD ---
MR#: [id number] Date of Study: 02/15/2020 Ordering Physician: MINDI CANCHOLA, Referring Physician: MINDI CANCHOLA, Tech: Geovanna Alejo APPROVED REPORT EXAM: Two-dimensional and M-mode echocardiogram with Doppler and color Doppler. Other Information Quality : Average Rhythm : Pacemaker INDICATION Arrhythmia Sick Sinus Syndrome Surgery/Intervention Pacemaker: Date: 2017 RISK FACTORS Hypertension 2D DIMENSIONS RVDd3.2 (2.9-3.5cm)Left Atrium(2D)2.9 (1.6-4.0cm) IVSd1.2 (0.7-1.1cm)Aortic Root(2D)3.5 (2.0-3.7cm) LVDd4.8 (3.9-5.9cm)LVOT Diameter2.0 (1.8-2.4cm) PWd1.1 (0.7-1.1cm)LVDs2.6 (2.5-4.0cm) FS (%) 46.1 %SV84.4 ml LVEF(%)77.3 (>50%) Aortic Valve AoV Peak Filippo.298.3cm/sAoV VTI56.5cm AO Peak GR.35.6mmHgLVOT Peak Filippo.101.1cm/s LVOT VTI 23.60cmAO Mean GR.19mmHg DAMI (VMAX)0.11ko0OQN (VTI)1.36cm2 AI P 1/2 Pvnn864ji Mitral Valve MV E Wlvcazgk15.6cm/sMV DECEL RDEO350ol MV A Snysxczd95.3cm/sMV E Mean Gr.2mmHg MV YXA73suC/A Ratio1.0 MVA (PHT)3.08cm2 TDI E/Lateral E'7.9E/Medial E'10.6 Pulmonary Valve PV Peak Qwrrncnw262.1cm/sPV Peak Grad.4mmHg Tricuspid Valve TR P. Ztjsnxny193tg/sRAP CIEASFEF3bjKi TR Peak Gr.55bnNmQQLM59cyZc Pulmonary Vein S1 Qidiyzdi41.0cm/sD2 Phbqerpt69.5cm/s PVa cfckbwlr683smss LEFT VENTRICLE The left ventricle is normal size. There is borderline to mild concentric left ventricular hypertroph y. The left ventricular systolic function is normal and the ejection fraction is within normal range. The Ejection Fraction is 55-60%. There is normal LV segmental wall motion. Transmitral Doppler flow pattern is Grade I-abnormal relaxation pattern. RIGHT VENTRICLE The right ventricle is normal size. There is normal right ventricular wall thickness. The right ventr icular systolic function is normal. There is a pacemaker lead in the right ventricle. ATRIA The left atrium size is normal. The right atrium size is normal. The interatrial septum is intact wit h no evidence for an atrial septal defect or patent foramen ovale as noted on 2-D or Doppler imaging. AORTIC VALVE The aortic valve is calcified. Doppler and Color Flow revealed mild to moderate aortic regurgitation. Calculated aortic valve area is 42 cm2 with maximum pressure gradient of 20 mmHg and mean pressure g radient of 1.27 mmHg. MITRAL VALVE The mitral valve is normal in structure and function. There is no evidence of mitral valve prolapse. There is no mitral valve stenosis. Doppler and Color-flow revealed trace mitral regurgitation. TRICUSPID VALVE The tricuspid valve is normal in structure and function. Doppler and Color Flow revealed trace to mil d tricuspid regurgitation with an estimated PAP of 37 mmHg. There is no tricuspid valve stenosis. PULMONIC VALVE The pulmonic valve is not well visualized. Doppler and Color Flow revealed no pulmonic valvular regur gitation. There is no pulmonic valvular stenosis. GREAT VESSELS The aortic root is normal in size. The IVC is normal in size and collapses >50% with inspiration. PERICARDIAL EFFUSION There is no evidence of significant pericardial effusion. Critical Notification Critical Value: No <Conclusion> The left ventricular systolic function is normal and the ejection fraction is within normal range. Th e Ejection Fraction is 55-60%. There is normal LV segmental wall motion. There is a pacemaker lead in the right ventricle. Doppler and Color Flow revealed mild to moderate aortic regurgitation. Signed by : Mindi Canchola, Electronically Approved : 02/15/2020 15:42:25
== END | disposition home or self-care (01) ==
LOC: ECHO 13:56
PROVIDERS: ATTEND Internal Medicine Cardiovascular Disease
DX: I08.2 Rheumatic disorders of both aortic and tricuspid valves (principal); I49.5 Sick sinus syndrome; Z95.0 Presence of cardiac pacemaker
CPT/HCPCS: 93306

== ENCOUNTER → 2020-02-28 | Outpatient (CLI) | payer MEDICARE ==
--- NOTE | 2020-02-28 15:27 | RAD ---
MR#: [id number] Date of Study: 02/28/2020 Ordering Physician: MINDI GUERRERO, Referring Physician: MINDI GUERRERO, Tech: Nicola Zhao MBA, RDMS, RVT, RDCS, RTR APPROVED REPORT Patient Location: OUT-PATIENT Laterality:Bilateral Indications PAD Doppler Spectral Velocity Analysis Right Left pCCA 63/9 cm/spCCA 69/12 cm/s mCCA 60/12 cm/smCCA 75/14 cm/s dCCA 64/12 cm/sdCCA 63/18 cm/s Bulb 84/23 cm/sBulb 72/12 cm/s ECA 136/ cm/sECA 90/ cm/s pICA 128/35 cm/spICA 64/14 cm/s Dalton 97/21 cm/smICA 81/21 cm/s dICA 99/24 cm/sdICA 51/18 cm/s Vert. 47/ cm/sVert. 37/ cm/s Subcl. 101/ cm/sSubcl. 110/ cm/s ICA/CCA 2.00ICA/CCA 1.17 Findings Grayscale images of the bilateral carotid arterial systems demonstrates mild to moderate diffuse inti mal hyperplasia with nonspecific nonfocal plaque. On the right side there is likely moderate stenosis based on velocity criteria in the proximal legal internship al carotid artery at 50 to 69% stenosis. No significant left-sided disease identified. Normal ICA t o CCA ratios bilaterally. Critical Notification Critical Value: No <Conclusion> 1. Moderate right-sided internal carotid disease but otherwise no significant occlusion noted. Signed by : Mindi Guerrero, Electronically Approved : 02/28/2020 15:27:19
== END | disposition home or self-care (01) ==
LOC: US 12:04
PROVIDERS: ATTEND Internal Medicine Cardiovascular Disease
DX: I77.3 Arterial fibromuscular dysplasia (principal); I65.21 Occlusion and stenosis of right carotid artery; I73.9 Peripheral vascular disease, unspecified
CPT/HCPCS: 93880

== ENCOUNTER → 2021-05-01 | Outpatient (CLI) | payer MEDICARE ==
[~2021-05-01] MED LIST changes: -LISI-334 PO; +LISI20TA18 PO
--- NOTE | 2021-05-01 13:51 | CARD ---
MR#: [id number] Date of Study: 05/01/2021 Ordering Physician: MINDI GUERRERO, Referring Physician: MINDI GUERRERO, Tech: Les Mcgowan [facility] APPROVED REPORT EXAM: Two-dimensional and M-mode echocardiogram with Doppler and color Doppler. Other Information Quality : AverageHR: 60bpm Rhythm : NSR INDICATION Murmur Surgery/Intervention Pacemaker: RISK FACTORS Hypertension Hyperlipidemia 2D DIMENSIONS Left Atrium(2D)3.5 (1.6-4.0cm)IVSd1.3 (0.7-1.1cm) Aortic Root(2D)3.6 (2.0-3.7cm)LVDd4.9 (3.9-5.9cm) LVOT Diameter2.2 (1.8-2.4cm)PWd1.3 (0.7-1.1cm) LVDs2.9 (2.5-4.0cm)FS (%) 40.3 % SV80.2 ml Aortic Valve AoV Peak Filippo.319.1cm/sAoV VTI74.8cm AO Peak GR.40.7mmHgLVOT Peak Filippo.112.2cm/s AO Mean GR.24mmHgAVA (VMAX)1.39cm2 AI P 1/2 Ftuw707tv Mitral Valve MV E Brijpgdw409.7cm/sMV E Peak Gr.4mmHg MV DECEL [id number] A Eyalnouv62.0cm/s MV E Mean Gr.2mmHgE/A Ratio1.2 Pulmonary Valve PV Peak Fbpdmdbq021.6cm/s Tricuspid Valve TR P. Hbcycmos483cp/sTR Peak Gr.28mmHg Pulmonary Vein S1 Sfflmrls00.6cm/sD2 Wakewywt57.5cm/s LEFT VENTRICLE The left ventricle is normal size. There is borderline to mild concentric left ventricular hypertroph y. The left ventricular systolic function is normal and the ejection fraction is within normal range. LV ejection fraction of 55 to 60%. There is normal LV segmental wall motion. Tissue Doppler imaging reveals abnormal left ventricular diastolic dysfunction. No left ventricle thrombus noted on this nima dy. There is no ventricular septal defect visualized. There is no left ventricular aneurysm. There is no mass noted in the left ventricle. RIGHT VENTRICLE The right ventricle is normal size. There is normal right ventricular wall thickness. The right ventr icular systolic function is normal. Pacemaker lead noted in the RV. ATRIA The left atrium size is normal. The right atrium size is normal. The interatrial septum is intact wit h no evidence for an atrial septal defect or patent foramen ovale as noted on 2-D or Doppler imaging. AORTIC VALVE The aortic valve is calcified Doppler and Color Flow revealed mild aortic regurgitation. There is mil d valvular aortic stenosis. Calculated aortic valve area is 1.4 cm2 with maximum pressure gradient of 40 mmHg and mean pressure gradient of 22 mmHg. There is no aortic valvular vegetation. MITRAL VALVE The mitral valve is normal in structure and function. There is no evidence of mitral valve prolapse. There is no mitral valve stenosis. Doppler and Color Flow revealed no mitral valve regurgitation note d. TRICUSPID VALVE The tricuspid valve is normal in structure and function. Doppler and Color Flow revealed trace to mil d tricuspid regurgitation. There is no tricuspid valve prolapse or vegetation. There is no tricuspid valve stenosis. PULMONIC VALVE The pulmonary valve is normal in structure and function. Doppler and Color Flow revealed no pulmonic valvular regurgitation. There is no pulmonic valvular stenosis. GREAT VESSELS The aortic root is normal in size. The ascending aorta is normal in size. The pulmonary artery is nor mal. The IVC is normal in size and collapses >50% with inspiration. PERICARDIAL EFFUSION There is no pleural effusion. There is no evidence of significant pericardial effusion. Critical Notification Critical Value: No <Conclusion> The left ventricle is normal size. The left ventricular systolic function is normal and the ejection fraction is within normal range. LV ejection fraction of 55 to 60%. There is borderline to mild concentric left ventricular hypertrophy. Doppler and Color Flow revealed mild aortic regurgitation. There is mild valvular aortic stenosis. Calculated aortic valve area is 1.4 cm2 with maximum pressure gradient of 40 mmHg and mean pressure g radient of 22 mmHg. Doppler and Color Flow revealed no mitral valve regurgitation noted. Doppler and Color Flow revealed trace to mild tricuspid regurgitation. Signed by : Kurtis Hernandez MD Electronically Approved : 05/01/2021 13:51:36
--- NOTE | 2021-05-01 16:57 | RAD ---
MR#: [id number] Date of Study: 05/01/2021 Ordering Physician: MINDI GUERRERO, Referring Physician: MINDI GUERRERO, Tech: Nicola Zhao MBA, RDMS, RVT, RDCS, RTR APPROVED REPORT Patient Location: OUT-PATIENT Laterality:Bilateral Indications CAROTID STENOSIS Doppler Spectral Velocity Analysis Right Left pCCA 71/11 cm/spCCA 82/17 cm/s mCCA 69/15 cm/smCCA 112/24 cm/s dCCA 64/10 cm/sdCCA 99/16 cm/s Bulb 81/15 cm/sBulb 116/19 cm/s ECA 143/ cm/sECA 94/ cm/s pICA 262/60 cm/spICA 87/17 cm/s Dalton 186/44 cm/smICA 85/26 cm/s dICA 188/44 cm/sdICA 74/17 cm/s Vert. 56/ cm/sVert. 33/ cm/s Subcl. 143/ cm/sSubcl. 124/ cm/s ICA/CCA 3.69ICA/CCA 1.06 Findings Grayscale images of the bilateral carotid vessels demonstrates mild to moderate diffuse atheroscleros is. On the right side there is likely a greater than 70% stenosis based on velocity criteria involving th e proximal internal carotid artery. Although the diastolic velocities are lower than anticipated. T his is likely overall consistent with moderate 50 to 69% stenosis rather than greater than 70% stenos is. ICA/CCA ratios are elevated on the right side at approximately 2.7-3.8. No significant left carotid arterial stenosis is noted. Normal ICA to CCA ratios. Normal bilateral antegrade vertebral velocities. No significant subclavian stenosis noted bilaterally. Critical Notification Critical Value: No <Conclusion> 1. Probable moderate right sided internal carotid artery stenosis. Based on velocity criteria altho ugh it meets severe stenosis, based on diastolic velocities, grayscale images this is likely in the m oderate category of 50 to 69% stenosis. Signed by : Mindi Guerrero, Electronically Approved : 05/01/2021 16:57:34
== END ==
LOC: ECHO 12:30
PROVIDERS: ATTEND Internal Medicine Cardiovascular Disease
DX: I08.2 Rheumatic disorders of both aortic and tricuspid valves (principal); I65.23 Occlusion and stenosis of bilateral carotid arteries; R01.1 Cardiac murmur, unspecified; Z95.0 Presence of cardiac pacemaker
CPT/HCPCS: 93306; 93880

== ENCOUNTER 2021-11-04 14:41 | Inpatient (IN) | payer MEDICARE ==
[~2021-11-04] VITALS: Ht 175.3 cm; Wt 100.5 kg
[~2021-11-04 14:41] MED LIST changes: +CYCL10TA19 PO; -CYCL10TA2 PO
--- NOTE | 2021-11-04 14:59 | ED.ADGEN ---
Past Medical History Past Medical History: Hypertension, Other Additional Past Medical Histor: enlarged prostate Past Surgical History: Other Additional Past Surgical Histo: back surgery x 6, c-spine surgery hernia repair, TURP; vasectomy Smoking Status: Former Smoker Alcohol Use: Rarely Drug Use: None General Adult EDM: Chief Complaint: SYNCOPE HPI: HPI: Patient is a 76 year old male coming in via EMS after syncopal episode. Patient states that he feels fine now. Patient was in a pantoja's chair getting his haircut when he went unresponsive. Per he was slumped over forward. Patient thinks he might of fallen asleep, but states that they were sternal rubbing, slapping his face, and yelling at him without any arousal. thinks the incident lasted about 5 to 6 minutes. Patient states that he last ate about 3-1/2 hours prior to arrival, also took a hydrocodone for his chronic back pain. Blood glucose by EMS was 133. Patient had a similar episode in 2017 had to have a pacemaker placed. Review of Systems: Review of Systems: All other systems within normal limits except for as noted in the HPI Current Medications: Current Medications Medications (Trade) Dose Ordered Sig/Adalgisa Start Time Stop Time Status Last Admin Dose Admin Sodium Chloride 500 ml @ 500 mls/hr 1X ONCE 11/04/21 15:00 11/04/21 15:59 DC 11/04/21 15:30 500 MLS/HR Allergies: Allergies: Allergies Coded Allergies Type Severity Reaction Last Updated Verified No Known Drug Allergies 11/08/13 No Physical Exam: PE: Constitutional: Well developed, well nourished, no acute distress, non-toxic appearance. [] HENT: Normocephalic, atraumatic, bilateral external ears normal, nose normal. [] Eyes: PERRLA, conjunctiva normal, no discharge. [] Neck: No rigidity, supple, no stridor. [] Cardiovascular: Regular rate and rhythm, brisk cap refill [] Lungs & Thorax: Non labored symmetric respirations, no tachypnea or respiratory distress [] Abdomen: Soft, nondistended. Skin: Warm, dry, no erythema, no rash. [] Back: Unremarkable Extremities: No deformities, range of motion grossly intact, no lower extremity edema [] Neurologic: Alert and oriented X 3, no focal deficits noted. [] Psychologic: Affect normal, judgement normal, mood normal. [] Current Patient Data: Labs: Laboratory Tests Test 11/04/21 15:10 White Blood Count 8.3 x10^3/uL (4.0-11.0) Red Blood Count 4.12 x10^6/uL (4.30-5.70) L Hemoglobin 12.2 g/dL (13.0-17.5) L Hematocrit 36.9 % (39.0-53.0) L Mean Corpuscular Volume 90 fL (79-100) Mean Corpuscular Hemoglobin 30 pg (25-35) Mean Corpuscular Hemoglobin Concent 33 g/dL (31-37) Red Cell Distribution Width 14.4 % (11.5-14.5) Platelet Count 198 x10^3/uL (140-400) Neutrophils (%) (Auto) 74 % (31-73) H Lymphocytes (%) (Auto) 15 % (24-48) L Monocytes (%) (Auto) 10 % (0-9) H Eosinophils (%) (Auto) 1 % (0-3) Basophils (%) (Auto) 1 % (0-3) Neutrophils # (Auto) 6.1 x10^3/uL (1.8-7.7) Lymphocytes # (Auto) 1.3 x10^3/uL (1.0-4.8) Monocytes # (Auto) 0.8 x10^3/uL (0.0-1.1) Eosinophils # (Auto) 0.1 x10^3/uL (0.0-0.7) Basophils # (Auto) 0.1 x10^3/uL (0.0-0.2) Sodium Level 140 mmol/L (136-145) Potassium Level 4.7 mmol/L (3.5-5.1) Chloride Level 106 mmol/L (98-107) Carbon Dioxide Level 26 mmol/L (21-32) Anion Gap 8 (6-14) Blood Urea Nitrogen 26 mg/dL (8-26) Creatinine 1.8 mg/dL (0.7-1.3) H Estimated GFR (Cockcroft-Gault) 36.8 BUN/Creatinine Ratio 14 (6-20) Glucose Level 102 mg/dL (70-99) H Calcium Level 9.7 mg/dL (8.5-10.1) Phosphorus Level 2.9 mg/dL (2.6-4.7) Magnesium Level 2.0 mg/dL (1.8-2.4) Total Bilirubin 0.3 mg/dL (0.2-1.0) Aspartate Amino Transferase (AST) 17 U/L (15-37) Alanine Aminotransferase (ALT) 42 U/L (16-63) Alkaline Phosphatase 88 U/L (46-116) Troponin I High Sensitivity 8 ng/L (4-75) FN-Rmq-J-Type Natriuretic Peptide 85 pg/mL (0-449) Total Protein 7.0 g/dL (6.4-8.2) Albumin 3.5 g/dL (3.4-5.0) Albumin/Globulin Ratio 1.0 (1.0-1.7) Laboratory Tests 11/04/21 15:10 Laboratory Tests 11/04/21 15:10 Vital Signs: Vital Signs Date Time Temp Pulse Resp B/P (MAP) Pulse Ox O2 Delivery O2 Flow Rate FiO2 11/04/21 16:00 60 125/56 (79) 95 Room Air 11/04/21 14:49 98.1 18 98.1 EKG: EKG: Paced rhythm, heart rate 60, normal axis, no STEMI [] Heart Score: C/O Chest Pain: No HEART Score for Chest Pain: HEART Score for Chest Pain Response (Comments) Value History Slighlty/Non-Suspicious 0 ECG Normal 0 Age > 65 2 Risk Factors >3 Risk Factors or Hx CAD 2 Total 4 Risk Factors: Risk Factors: DM, Current or recent (<one month) smoker, HTN, HLP, family history of CAD, obesity. Risk Scores: Score 0 - 3: 2.5% MACE over next 6 weeks - Discharge Home Score 4 - 6: 20.3% MACE over next 6 weeks - Admit for Clinical Observation Score 7 - 10: 72.7% MACE over next 6 weeks - Early Invasive Strategies Radiology/Procedures: Radiology/Procedures: [facility] [address] [place], [place] [id number] IMAGING REPORT Signed PATIENT: BARRY JAVIER ACCOUNT: [id number] : 1945 LOCATION: ER AGE: 76 SEX: M EXAM STATUS: PRE ER ORD. PHYSICIAN: LANDRY RICHARD MD REASON: syncope PROCEDURE: CT HEAD WO CONTRAST EXAM: Head CT without contrast. HISTORY: Syncope. TECHNIQUE: Computed tomographic images of the head were obtained without contrast. *One or more of the following individualized dose reduction techniques were utilized for this examination: 1. Automated exposure control. 2. Adjustment of the mA and/or kV according to patient size. 3. Use of iterative reconstruction technique. COMPARISON: MRI dated 12/16/2016. FINDINGS: There is no acute or subacute extra-axial or intraparenchymal hemorrhage. There is no mass effect or midline shift. There is no hydrocephalus. There are areas of decreased attenuation within the cerebral white matter, nonspecific and likely related to chronic small vessel disease. 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 There is cerebral volume loss. There is an incidental left denver bullosa. The orbits and mastoid air cells are unremarkable. There is no suspicious calvarial lesion. IMPRESSION: 1. No acute intracranial finding. Note is made that MRI is more sensitive for acute infarction. 2. Bilateral cerebral white matter changes, likely due to chronic small vessel disease. 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 3. Cerebral volume loss. Electronically signed by: Tiana Garvey MD (11/04/2021 3:37 PM) [id number] DICTATED and SIGNED BY: TIANA GARVEY MD DATE: 11/04/21 1535 [facility] [address] [place] [address] IMAGING REPORT Signed PATIENT: BARRY JAVIER ACCOUNT: [id number] : 1945 LOCATION: ER AGE: 76 SEX: M EXAM STATUS: PRE ER ORD. PHYSICIAN: LANDRY RICHARD MD REASON: syncope PROCEDURE: CHEST AP ONLY EXAM: Chest, single view. HISTORY: Syncope. COMPARISON: 01/21/2017 FINDINGS: A frontal view of the chest is obtained. There is no infiltrate, pleural effusion or pneumothorax. The heart is normal in size. There is a cardiac pacemaker in expected position. IMPRESSION: No acute pulmonary finding. Electronically signed by: Tiana Garvey MD (11/04/2021 3:09 PM) [id number] DICTATED and SIGNED BY: TIANA GARVEY MD DATE: 11/04/21 1509 [] Course & Med Decision Making: Course & Med Decision Making Pertinent Labs and Imaging studies reviewed. (See chart for details) [] Dragon Disclaimer: Dragon Disclaimer: This electronic medical record was generated, in whole or in part, using a voice recognition dictation system. Departure Departure Impression: Primary Impression: Syncope Additional Impression: Encounter for interrogation of cardiac pacemaker Disposition: ADMITTED INPATIENT Admitting Physician: HIMS Condition: STABLE Referrals: UNKNOWN PCP NAME (PCP) Problem Qualifiers LANDRY RICHARD MD Nov 04, 2021 14:59
[2021-11-04] MEDS ORDERED: IV NORMAL SALINE 500ML BAG 500 ML IV ONE (15:00)
--- NOTE | 2021-11-04 15:12 | RAD ---
EXAM: Chest, single view. HISTORY: Syncope. COMPARISON: 01/21/2017 FINDINGS: A frontal view of the chest is obtained. There is no infiltrate, pleural effusion or pneumo thorax. The heart is normal in size. There is a cardiac pacemaker in expected position. IMPRESSION: No acute pulmonary finding. Electronically signed by: Tiana Desai MD (11/04/2021 3:09 PM) [id number]
[2021-11-04 15:23] LABS: BASO # 0.1 x10^3/uL (0.0-0.2); BASO % 1 % (0-3); EOS # 0.1 x10^3/uL (0.0-0.7); EOS % 1 % (0-3); HEMATOCRIT 36.9 % (39.0-53.0); HEMOGLOBIN 12.2 g/dL (13.0-17.5); LYMPH # 1.3 x10^3/uL (1.0-4.8); LYMPH % 15 % (24-48); MEAN CORPUSCULAR HEMOGLOBIN 30 pg (25-35); MEAN CORPUSCULAR HGB CONC 33 g/dL (31-37); MEAN CORPUSCULAR VOLUME 90 fL (79-100); MONO # 0.8 x10^3/uL (0.0-1.1); MONO % 10 % (0-9); NEUT # 6.1 x10^3/uL (1.8-7.7); NEUT % 74 % (31-73); PLATELET COUNT 198 x10^3/uL (140-400); RED BLOOD COUNT 4.12 x10^6/uL (4.30-5.70); RED CELL DISTRIBUTION WIDTH 14.4 % (11.5-14.5); WHITE BLOOD COUNT 8.3 x10^3/uL (4.0-11.0)
[2021-11-04 15:32] LABS: CALCIUM 9.7 mg/dL (8.5-10.1); CREATININE 1.8 mg/dL (0.7-1.3); GFR 36.8; POTASSIUM 4.7 mmol/L (3.5-5.1)
[2021-11-04 15:36] LABS: ALBUMIN 3.5 g/dL (3.4-5.0); PHOSPHORUS 2.9 mg/dL (2.6-4.7); TOTAL BILIRUBIN 0.3 mg/dL (0.2-1.0)
--- NOTE | 2021-11-04 15:39 | RAD ---
EXAM: Head CT without contrast. HISTORY: Syncope. TECHNIQUE: Computed tomographic images of the head were obtained without contrast. *One or more of the following individualized dose reduction techniques were utilized for this examina tion: 1. Automated exposure control. 2. Adjustment of the mA and/or kV according to patient size. 3. Use of iterative reconstruction technique. COMPARISON: MRI dated 12/16/2016. FINDINGS: There is no acute or subacute extra-axial or intraparenchymal hemorrhage. There is no mass effect or midline shift. There is no hydrocephalus. There are areas of decreased attenuation within the cerebral white matter, nonspecific and likely rel ated to chronic small vessel disease. 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 There is cerebral volume loss. There is an incidental left denver bullosa. The orbits and mastoid air cells are unremarkable. There is no suspicious calvarial lesion. IMPRESSION: 1. No acute intracranial finding. Note is made that MRI is more sensitive for acute infarction. 2. Bilateral cerebral white matter changes, likely due to chronic small vessel disease. There is a kemp spected superimposed small chronic infarct involving the right frontal lobe. 3. Cerebral volume loss. Electronically signed by: Tiana Desai MD (11/04/2021 3:37 PM) [id number]
[2021-11-04] MEDS ORDERED: fentaNYL PF VIAL 100 MCG/2 ML VIAL IVP PRN (16:45)
[2021-11-04] MEDS ORDERED: ONDANSETRON PF 4 MG/2 ML VIAL. IVP PRN ×2 (16:45→17:15)
[2021-11-04] MEDS ORDERED: ACETAMINOPHEN 325 MG TABLET. PO PRN ×2 (16:45→17:15)
--- NOTE | 2021-11-04 17:03 | PDOC1 ---
History and Physical Date of Service: DOS: DATE: 11/04/21 TIME: 16:56 Chief Complaint: Chief Complain: Syncope History of Present Illness: HPI: Hx obtained from discussion with ED physician and chart review: 76-year-old male with past medical history of hypertension, BPH, syncope, pacemaker placed for syncope by Dr. Canchola in 2017 who comes in after a syncopal episode. Patient was having some back pain more than usual and he does take opioids for that. He went to go to the [facility] to get his haircut when he sat in the chair he bent his head down for the hairdresser to cut his hair and that was the last thing he remembered. was with him and saw that he was slumped over and they try to wake him up for about 5 to 6 minutes by stimulating him and rubbing in his face and trying to wake him up. Patient did wake up and he did not have any postictal symptoms or seizures. Last thing he remembered was waking up in the ambulance. Blood glucose checked by EMS was 133. Patient does take hydrocodone for his chronic back pain. Currently denies any fevers, chest pain, dizziness, lightheadedness, abdominal pain, diarrhea or dysuria. Past Medical/Surgical History: PMH/PSH: Past Medical History: Hypertension, enlarged prostate, PPM placed in 2017 Past Surgical History: back surgery x 6, c-spine surgery hernia repair, TURP; v asectomy Allergies: Allergies: Coded Allergies: No Known Drug Allergies (Unverified , 11/08/13) Family History: Family History: Reviewed with no relative findings in the chart Social History: Social History: Denies any alcohol, drug or tobacco abuse. Current Medications: Current Medications Current Medications Sodium Chloride 500 ml @ 500 mls/hr 1X ONCE IV Last administered on 11/04/21at 15:30; Start 11/04/21 at 15:00; Stop 11/04/21 at 15:59; Status DC Ondansetron HCl (Zofran) 4 mg PRN Q8HRS PRN IVP NAUSEA/VOMITING; Start 11/04/21 at 16:45; Stop 11/05/21 at 16:44 Fentanyl Citrate (Fentanyl 2ml Vial) 50 mcg PRN Q1HR PRN IVP PAIN; Start 11/04/21 at 16:45; Stop 11/05/21 at 16:44 Acetaminophen (Tylenol) 650 mg PRN Q4HRS PRN PO FEVER > 100.3'F; Start 11/04/21 at 16:45; Stop 11/05/21 at 16:44 Active Scripts Active Senna (Sennosides) 8.6 Mg Tablet 8.6 Mg PO PRN BID PRN Colace (Docusate Sodium) 100 Mg Capsule 100 Mg PO DAILY [Bisacodyl] 10 MG Supp.rect 10 Mg WA PRN DAILY PRN Reported Cyclobenzaprine Hcl 10 Mg Tablet 1 Tab PO PRN Atorvastatin Calcium 20 Mg Tablet 20 Mg PO HS Aspirin 325 Mg Tablet 1 Tab PO DAILY Lisinopril 20 Mg Tablet 20 Mg PO DAILY Miralax (Polyethylene Glycol 3350) 17 Gm Powd.pack 1 Pkt PO PRN DAILY PRN Hydrocodone-Apap 7.5-325 (Hydrocodone Bit/Acetaminophen) 1 Each Tablet 1 Tab PO PRN Q6HRS PRN Gabapentin 300 Mg Capsule 300 Mg PO TID Cyclobenzaprine Hcl 10 Mg Tablet 10 Mg PO Flomax (Tamsulosin Hcl) 0.4 Mg Cap.er.24h 0.4 Mg PO HS ROS: Review of Systems Review of System REVIEW OF SYSTEMS: GENERAL: Denies weakness SKIN: No bruising, hair changes or rashes. EYES: No blurred, double or loss of vision. NOSE AND THROAT: No history of nosebleeds, hoarseness or sore throat. HEART: Positive for syncope LUNGS: Denies cough, hemoptysis, wheezing or shortness of breath. GASTROINTESTINAL: Denies changes in appetite, nausea, vomiting, diarrhea or constipation. GENITOURINARY: No history of frequency, urgency, hesitancy or nocturia. NEUROLOGIC: Denies history of numbness, tingling, or tremor. PSYCHIATRIC: No history of panic, anxiety or depression. ENDOCRINE: No history of heat or cold intolerance, polyuria or polydipsia. EXTREMITIES: Denies joint pain, pain on walking or stiffness. Physical Exam: Vital Signs: Vital Signs Date Time Temp Pulse Resp B/P (MAP) Pulse Ox O2 Delivery O2 Flow Rate FiO2 11/04/21 16:00 60 125/56 (79) 95 Room Air 11/04/21 14:49 98.1 18 98.1 Physcial Exam: GEN: No apparent distress. Alert and oriented HEENT: Normal cephalic, atraumatic, external auditory canals are patent EYES: Extraocular muscles are intact, pupil are equally round and reactive to light and accommodation MUSCULOSKELETAL: Well developed , well nourished, good range of motion ENDOCRINE: No thyromegaly was palpated LYMPHATICS: No cervical chain or axillary nodes were noted HEMATOPOIETIC: No bruising NECK: Supple, no JVD, no thyromegaly was noted LUNGS: Clear to auscultation in all lung lomeli without rhonchi or wheezing HEART: RRR, S!, S2 present. Peripheral pulses intact, no obvious murmurs noted ABDOMEN: Soft, nontender. Positive bowel sounds, no organomegaly, normal bowel sounds EXTREMITIES: Without clubbing, cyanosis, or edema. Pedal pulses intact. Negative Homans sign NEUROLOGIC: Normal speech and tone. A&O x 3, moves all extremities, no obvious focal deficits PSYCHIATRIC: Normal affect, normal mood. Stable SKIN: No ulcerations or rashes, good skin turgor, no jaundice VASCULAR: Good capillary refill, neurovascular bundle appears to be intact Labs: Labs: Laboratory Tests Test 11/04/21 15:10 White Blood Count 8.3 x10^3/uL (4.0-11.0) Red Blood Count 4.12 x10^6/uL (4.30-5.70) Hemoglobin 12.2 g/dL (13.0-17.5) Hematocrit 36.9 % (39.0-53.0) Mean Corpuscular Volume 90 fL (79-100) Mean Corpuscular Hemoglobin 30 pg (25-35) Mean Corpuscular Hemoglobin Concent 33 g/dL (31-37) Red Cell Distribution Width 14.4 % (11.5-14.5) Platelet Count 198 x10^3/uL (140-400) Neutrophils (%) (Auto) 74 % (31-73) Lymphocytes (%) (Auto) 15 % (24-48) Monocytes (%) (Auto) 10 % (0-9) Eosinophils (%) (Auto) 1 % (0-3) Basophils (%) (Auto) 1 % (0-3) Neutrophils # (Auto) 6.1 x10^3/uL (1.8-7.7) Lymphocytes # (Auto) 1.3 x10^3/uL (1.0-4.8) Monocytes # (Auto) 0.8 x10^3/uL (0.0-1.1) Eosinophils # (Auto) 0.1 x10^3/uL (0.0-0.7) Basophils # (Auto) 0.1 x10^3/uL (0.0-0.2) Sodium Level 140 mmol/L (136-145) Potassium Level 4.7 mmol/L (3.5-5.1) Chloride Level 106 mmol/L (98-107) Carbon Dioxide Level 26 mmol/L (21-32) Anion Gap 8 (6-14) Blood Urea Nitrogen 26 mg/dL (8-26) Creatinine 1.8 mg/dL (0.7-1.3) Estimated GFR (Cockcroft-Gault) 36.8 BUN/Creatinine Ratio 14 (6-20) Glucose Level 102 mg/dL (70-99) Calcium Level 9.7 mg/dL (8.5-10.1) Phosphorus Level 2.9 mg/dL (2.6-4.7) Magnesium Level 2.0 mg/dL (1.8-2.4) Total Bilirubin 0.3 mg/dL (0.2-1.0) Aspartate Amino Transf (AST/SGOT) 17 U/L (15-37) Alanine Aminotransferase (ALT/SGPT) 42 U/L (16-63) Alkaline Phosphatase 88 U/L (46-116) Troponin I High Sensitivity 8 ng/L (4-75) HE-Oxz-I-Type Natriuretic Peptide 85 pg/mL (0-449) Total Protein 7.0 g/dL (6.4-8.2) Albumin 3.5 g/dL (3.4-5.0) Albumin/Globulin Ratio 1.0 (1.0-1.7) Laboratory Tests Test 11/04/21 15:10 White Blood Count 8.3 x10^3/uL (4.0-11.0) Red Blood Count 4.12 x10^6/uL (4.30-5.70) Hemoglobin 12.2 g/dL (13.0-17.5) Hematocrit 36.9 % (39.0-53.0) Mean Corpuscular Volume 90 fL (79-100) Mean Corpuscular Hemoglobin 30 pg (25-35) Mean Corpuscular Hemoglobin Concent 33 g/dL (31-37) Red Cell Distribution Width 14.4 % (11.5-14.5) Platelet Count 198 x10^3/uL (140-400) Neutrophils (%) (Auto) 74 % (31-73) Lymphocytes (%) (Auto) 15 % (24-48) Monocytes (%) (Auto) 10 % (0-9) Eosinophils (%) (Auto) 1 % (0-3) Basophils (%) (Auto) 1 % (0-3) Neutrophils # (Auto) 6.1 x10^3/uL (1.8-7.7) Lymphocytes # (Auto) 1.3 x10^3/uL (1.0-4.8) Monocytes # (Auto) 0.8 x10^3/uL (0.0-1.1) Eosinophils # (Auto) 0.1 x10^3/uL (0.0-0.7) Basophils # (Auto) 0.1 x10^3/uL (0.0-0.2) Sodium Level 140 mmol/L (136-145) Potassium Level 4.7 mmol/L (3.5-5.1) Chloride Level 106 mmol/L (98-107) Carbon Dioxide Level 26 mmol/L (21-32) Anion Gap 8 (6-14) Blood Urea Nitrogen 26 mg/dL (8-26) Creatinine 1.8 mg/dL (0.7-1.3) Estimated GFR (Cockcroft-Gault) 36.8 BUN/Creatinine Ratio 14 (6-20) Glucose Level 102 mg/dL (70-99) Calcium Level 9.7 mg/dL (8.5-10.1) Phosphorus Level 2.9 mg/dL (2.6-4.7) Magnesium Level 2.0 mg/dL (1.8-2.4) Total Bilirubin 0.3 mg/dL (0.2-1.0) Aspartate Amino Transf (AST/SGOT) 17 U/L (15-37) Alanine Aminotransferase (ALT/SGPT) 42 U/L (16-63) Alkaline Phosphatase 88 U/L (46-116) Troponin I High Sensitivity 8 ng/L (4-75) PB-Urs-J-Type Natriuretic Peptide 85 pg/mL (0-449) Total Protein 7.0 g/dL (6.4-8.2) Albumin 3.5 g/dL (3.4-5.0) Albumin/Globulin Ratio 1.0 (1.0-1.7) Images: Images PROCEDURE: CT HEAD WO CONTRAST EXAM: Head CT without contrast. HISTORY: Syncope. TECHNIQUE: Computed tomographic images of the head were obtained without contrast. *One or more of the following individualized dose reduction techniques were utilized for this examination: 1. Automated exposure control. 2. Adjustment of the mA and/or kV according to patient size. 3. Use of iterative reconstruction technique. PROCEDURE: CHEST AP ONLY EXAM: Chest, single view. HISTORY: Syncope. COMPARISON: 01/21/2017 FINDINGS: A frontal view of the chest is obtained. There is no infiltrate, pleural effusion or pneumothorax. The heart is normal in size. There is a cardiac pacemaker in expected position. IMPRESSION: No acute pulmonary finding. COMPARISON: MRI dated 12/16/2016. FINDINGS: There is no acute or subacute extra-axial or intraparenchymal hemorrhage. There is no mass effect or midline shift. There is no hydrocephalus. There are areas of decreased attenuation within the cerebral white matter, nonspecific and likely related to chronic small vessel disease. 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 There is cerebral volume loss. There is an incidental left [place] bullosa. The orbits and mastoid air cells are unremarkable. There is no suspicious calvarial lesion. IMPRESSION: 1. No acute intracranial finding. Note is made that MRI is more sensitive for acute infarction. 2. Bilateral cerebral white matter changes, likely due to chronic small vessel disease. 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 3. Cerebral volume loss. Assessment/Plan Assessment/Plan Syncope due to vasovagal etiology, orthostatic hypotension, cardiovascular etiology MARICEL due to vasomotor nephropathy History of pacemaker placement in 2017 History of hypertension History of dyslipidemia Chronic back pain Admit to medicine for further work-up Cardiology consult Pending echocardiogram Continue telemetry monitoring Fall precautions Orthostatic vital signs Hold all centrally acting medications Pending medication reconciliation Avoid nephrotoxic agents Monitor urine output Strict I's/O Lovenox for DVT prophylaxis Cardiac diet Full code Discussed with RN and SW Disposition inpatient management as above Surrogate decision maker is the Justifications for Admission Other Justification FISH TAMAYO MD Nov 04, 2021 17:03
[2021-11-04] MEDS ORDERED: DOCUSATE SODIUM 100 MG CAPSULE. PO PRN (17:15)
[2021-11-04] MEDS ORDERED: PROCHLORPERAZINE 10 MG/2 ML VIAL. IV PRN (17:15)
[2021-11-04] MEDS ORDERED: SENNOSIDES 8.6 MG TABLET PO PRN (17:15)
[2021-11-04] MEDS ORDERED: diphenhydrAMINE 50 MG/ML VIAL IVP PRN (17:15)
[2021-11-04] MEDS ORDERED: DEXTROSE 50% 25 GM / 50ML DISP.SYRIN. IV PRN (17:15)
[2021-11-04] MEDS ORDERED: diphenhydrAMINE HCL 25 MG CAPSULE PO PRN ×2 (17:15)
[2021-11-04] MEDS ORDERED: LORazepam 0.5 MG TABLET PO PRN (17:15)
[2021-11-04] MEDS ORDERED: ZOLPIDEM 5 MG TABLET. PO PRN (17:15)
[2021-11-04] MEDS ORDERED: ENOXAPARIN 40 MG/0.4 ML SYRINGE. SQ SCH (17:30)
[2021-11-04 17:35] VITALS: BP 148/63
[2021-11-04] MEDS: IV NORMAL SALINE 1000ML BAG 1,000 ML IV SCH (18:00)
--- NOTE | 2021-11-04 18:09 | EKG ---
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
[2021-11-04 18:33] LABS: INFLUENZA A PATIENT NEGATIVE (NEGATIVE); INFLUENZA B PATIENT NEGATIVE (NEGATIVE)
[2021-11-04 19:39] VITALS: BP 131/63
[2021-11-04] MEDS ORDERED: HYDROcodone/APAP 7.5/325MG 1 TAB TABLET PO PRN (20:15)
[2021-11-04] MEDS ORDERED: GABA600T7 PO (20:27)
[2021-11-04] MEDS ORDERED: ASPI-630 PO (20:32)
[2021-11-04] MEDS ORDERED: ASPI-621 PO (20:38)
[2021-11-04] MEDS ORDERED: SERT50TA PO (20:38)
[2021-11-04] MEDS ORDERED: CYAN500T7 PO (20:38)
[2021-11-04] MEDS ORDERED: PRAV10TA2 PO (20:38)
[2021-11-04] MEDS ORDERED: AMLO-187 PO (20:53)
[2021-11-04] MEDS: GABAPENTIN 300 MG CAPSULE. PO SCH (20:57)
[2021-11-04] MEDS ORDERED: TAMSULOSIN 0.4 MG CAP.ER.24H. PO SCH (21:00)
--- NOTE | 2021-11-04 21:57 | NUR ---
CALLED CONSULT TO DR VIRAMONTES. SPOKE [facility] DR[facility] ANDREAS ARCEO, [facility]
[2021-11-04 22:30] VITALS: BP 150/67
[2021-11-05 02:41] VITALS: BP 151/68
[2021-11-05] MEDS: IV NORMAL SALINE 1000ML BAG 1,000 ML IV SCH (04:30)
[2021-11-05 04:44] LABS: BASO # 0.1 x10^3/uL (0.0-0.2); BASO % 1 % (0-3); EOS # 0.2 x10^3/uL (0.0-0.7); EOS % 2 % (0-3); HEMATOCRIT 36.9 % (39.0-53.0); LYMPH # 1.8 x10^3/uL (1.0-4.8); LYMPH % 24 % (24-48); MEAN CORPUSCULAR HEMOGLOBIN 29 pg (25-35); MEAN CORPUSCULAR HGB CONC 33 g/dL (31-37); MEAN CORPUSCULAR VOLUME 89 fL (79-100); MONO # 0.9 x10^3/uL (0.0-1.1); MONO % 13 % (0-9); NEUT # 4.4 x10^3/uL (1.8-7.7); NEUT % 60 % (31-73); PLATELET COUNT 194 x10^3/uL (140-400); RED BLOOD COUNT 4.15 x10^6/uL (4.30-5.70); RED CELL DISTRIBUTION WIDTH 14.7 % (11.5-14.5); WHITE BLOOD COUNT 7.3 x10^3/uL (4.0-11.0)
[2021-11-05 05:32] LABS: ALBUMIN 3.3 g/dL (3.4-5.0); ALBUMIN/GLOBULIN RATIO 0.9 (1.0-1.7); CALCIUM 9.7 mg/dL (8.5-10.1); CREATININE 1.5 mg/dL (0.7-1.3); GFR 45.4; MAGNESIUM 2.1 mg/dL (1.8-2.4); PHOSPHORUS 2.5 mg/dL (2.6-4.7); POTASSIUM 4.4 mmol/L (3.5-5.1); TOTAL BILIRUBIN 0.2 mg/dL (0.2-1.0); TOTAL PROTEIN 6.8 g/dL (6.4-8.2)
[2021-11-05 07:00] VITALS: BP 173/71
[2021-11-05] MEDS: GABAPENTIN 300 MG CAPSULE. PO SCH ×2 (08:09→14:10)
[2021-11-05 08:37] VITALS: BP 159/69
[2021-11-05 08:38] VITALS: BP 127/59
[2021-11-05] MEDS ORDERED: ASPIRIN 325 MG TABLET PO SCH (09:00)
[2021-11-05] MEDS ORDERED: ASPI325T8 PO (10:33)
[2021-11-05] MEDS ORDERED: GABA300C18 PO (10:33)
[2021-11-05 10:47] VITALS: BP 145/63
--- NOTE | 2021-11-05 10:56 | NUR ---
SS following for discharge planning. SS reviewed pt chart and discussed with pt RN. Pt is from home with spouse and is currently on room air. COVID19 negative. Cardiology consulted. Discharge order on the chart for home with self care.
--- NOTE | 2021-11-05 11:02 | PDOC2 ---
RASHAWN STALLWORTH LEAD MACHINIST 11/05/21 1102: CARDIAC CONSULT DATE OF CONSULT Date of Consult DATE: 11/05/21 TIME: 10:46 REASON FOR CONSULT Reason for Consult: Syncope, pacer interrogation REFERRING PHYSICIAN Referring Physician: Annalee SOURCE Source: Chart review, Patient HISTORY OF PRESENT ILLNESS HISTORY OF PRESENT ILLNESS This is a pleasant 76 yo male admitted for complains of unresponsiveness. Apparently he was getting a haircut when he became unresponsive. He was told that he was unconscious for abouot 15 minutes and finally regained consciousness when he was in the ambulance. Denies any symptoms prior to losing consciousness and no mention of any tremors or seizure activity. No loss of bowel and bladder continence. He does not have hx of CVA and did not show any diffuse or focal neuro symptoms. Denies any chest pain, SOA or palpitations. He does known right carotid stenosis and also has PPM due to symptomatic bradycardia. Presently denies any symptoms and he did not fall associated with this event. Reports hydration adeqaucy and this event occurred at around 2 PM and did not skip any of his meals. PAST MEDICAL HISTORY Cardiovascular: HTN, Hyperlipidemia, Aortic stenosis, Other (SSS, carotid artery disease) GI: Constipation Psych: Anxiety Musculoskeletal: Osteoarthritis Renal/: Benign prostatic enlarg., Other (nephrolithiasis) PAST SURGICAL HISTORY Past Surgical History: Pacemaker, Other (nasal and sinus surgery) FAMILY HISTORY Family History noncontributory SOCIAL HISTORY Smoke: No ALCOHOL: none Drugs: None Lives: with Family CURRENT MEDICATIONS CURRENT MEDICATIONS Current Medications Medications (Trade) Dose Ordered Sig/Adalgisa Route PRN Reason Start Time Stop Time Status Last Admin Dose Admin Sodium Chloride 500 ml @ 500 mls/hr 1X ONCE IV 11/04/21 15:00 11/04/21 15:59 DC 11/04/21 15:30 Sodium Chloride 1,000 ml @ 100 mls/hr Q10H IV 11/04/21 17:15 11/05/21 04:30 Enoxaparin Sodium (Lovenox 40mg Syringe) 40 mg Q24H SQ 11/04/21 17:30 11/04/21 18:00 Aspirin (Shelodn Aspirin) 325 mg DAILY PO 11/05/21 09:00 11/05/21 08:09 Gabapentin (Neurontin) 300 mg TID PO 11/04/21 21:00 11/05/21 08:09 Tamsulosin HCl (Flomax) 0.4 mg HS PO 11/04/21 21:00 11/04/21 20:57 ALLERGIES ALLERGIES: Coded Allergies: No Known Drug Allergies (Unverified , 11/08/13) ROS Review of System 14 point ROS evaluated with pertinent positives noted per HPI PHYSICAL EXAM General: Alert, Oriented X3, Cooperative, No acute distress HEENT: Atraumatic, Mucous membr. moist/pink Lungs: Clear to auscultation, Normal air movement Heart: Regular rate (SR), Normal S1, Normal S2, Other (3/6 systolic murmur to LILIAN border ) Abdomen: Soft, No tenderness Extremities: No cyanosis, No edema Skin: No breakdown, No significant lesion Neuro: Normal speech, Sensation intact Psych/Mental Status: Mental status NL, Mood NL MUSCULOSKELETAL: Osteoarthritic changes both hands VITALS/I&O VITALS/I&O: Vital Signs Date Time Temp Pulse Resp B/P (MAP) Pulse Ox O2 Delivery O2 Flow Rate FiO2 11/05/21 08:49 95 Room Air 11/05/21 08:38 61 127/59 (81) 11/05/21 07:00 97.6 18 97.6 I & O 11/04/21 11/04/21 11/05/21 15:00 23:00 07:00 Intake Total 710 ml 1500 ml Output Total 1375 ml Balance 710 ml 125 ml LABS Lab: Laboratory Tests Test 11/04/21 15:10 11/04/21 17:36 11/04/21 18:10 11/05/21 03:20 White Blood Count 8.3 x10^3/uL (4.0-11.0) 7.3 x10^3/uL (4.0-11.0) Red Blood Count 4.12 x10^6/uL (4.30-5.70) L 4.15 x10^6/uL (4.30-5.70) L Hemoglobin 12.2 g/dL (13.0-17.5) L 12.0 g/dL (13.0-17.5) L Hematocrit 36.9 % (39.0-53.0) L 36.9 % (39.0-53.0) L Mean Corpuscular Volume 90 fL (79-100) 89 fL (79-100) Mean Corpuscular Hemoglobin 30 pg (25-35) 29 pg (25-35) Mean Corpuscular Hemoglobin Concent 33 g/dL (31-37) 33 g/dL (31-37) Red Cell Distribution Width 14.4 % (11.5-14.5) 14.7 % (11.5-14.5) H Platelet Count 198 x10^3/uL (140-400) 194 x10^3/uL (140-400) Neutrophils (%) (Auto) 74 % (31-73) H 60 % (31-73) Lymphocytes (%) (Auto) 15 % (24-48) L 24 % (24-48) Monocytes (%) (Auto) 10 % (0-9) H 13 % (0-9) H Eosinophils (%) (Auto) 1 % (0-3) 2 % (0-3) Basophils (%) (Auto) 1 % (0-3) 1 % (0-3) Neutrophils # (Auto) 6.1 x10^3/uL (1.8-7.7) 4.4 x10^3/uL (1.8-7.7) Lymphocytes # (Auto) 1.3 x10^3/uL (1.0-4.8) 1.8 x10^3/uL (1.0-4.8) Monocytes # (Auto) 0.8 x10^3/uL (0.0-1.1) 0.9 x10^3/uL (0.0-1.1) Eosinophils # (Auto) 0.1 x10^3/uL (0.0-0.7) 0.2 x10^3/uL (0.0-0.7) Basophils # (Auto) 0.1 x10^3/uL (0.0-0.2) 0.1 x10^3/uL (0.0-0.2) Sodium Level 140 mmol/L (136-145) 140 mmol/L (136-145) Potassium Level 4.7 mmol/L (3.5-5.1) 4.4 mmol/L (3.5-5.1) Chloride Level 106 mmol/L (98-107) 109 mmol/L (98-107) H Carbon Dioxide Level 26 mmol/L (21-32) 26 mmol/L (21-32) Anion Gap 8 (6-14) 5 (6-14) L Blood Urea Nitrogen 26 mg/dL (8-26) 24 mg/dL (8-26) Creatinine 1.8 mg/dL (0.7-1.3) H 1.5 mg/dL (0.7-1.3) H Estimated GFR (Cockcroft-Gault) 36.8 45.4 BUN/Creatinine Ratio 14 (6-20) 16 (6-20) Glucose Level 102 mg/dL (70-99) H 100 mg/dL (70-99) H Calcium Level 9.7 mg/dL (8.5-10.1) 9.7 mg/dL (8.5-10.1) Phosphorus Level 2.9 mg/dL (2.6-4.7) 2.5 mg/dL (2.6-4.7) L Magnesium Level 2.0 mg/dL (1.8-2.4) 2.1 mg/dL (1.8-2.4) Total Bilirubin 0.3 mg/dL (0.2-1.0) 0.2 mg/dL (0.2-1.0) Aspartate Amino Transferase (AST) 17 U/L (15-37) 19 U/L (15-37) Alanine Aminotransferase (ALT) 42 U/L (16-63) 34 U/L (16-63) Alkaline Phosphatase 88 U/L (46-116) 87 U/L (46-116) Troponin I High Sensitivity 8 ng/L (4-75) 10 ng/L (4-75) GB-Kxz-M-Type Natriuretic Peptide 85 pg/mL (0-449) Total Protein 7.0 g/dL (6.4-8.2) 6.8 g/dL (6.4-8.2) Albumin 3.5 g/dL (3.4-5.0) 3.3 g/dL (3.4-5.0) L Albumin/Globulin Ratio 1.0 (1.0-1.7) 0.9 (1.0-1.7) L Influenza Type A Antigen Negative (NEGATIVE) Influenza Type B Antigen Negative (NEGATIVE) SARS-CoV-2 Antigen (Rapid) Negative (NEGATIVE) Laboratory Tests 11/04/21 15:10 3/17/22 03:20 Laboratory Tests 11/04/21 15:10 11/05/21 03:20 ASSESSMENT/PLAN ASSESSMENT/PLAN 1. Syncope: estimated 15 min unresponsiveness. unclear etiology. No fall 2. Hyperlipidemia 3. SSS with PPM in situ: [facility] DDDR mode. 4. HTN: controlled 5. Carotid artery disease 6. 7. Suspect CKD 3 Recommendations 1. limited TTE, carotid artery duplex, UA and TSH 2. Continue ASA, statin and lisinopril 3. Interrogate device 4. Consult vascular DANY BONDS MD 11/05/212138: CARDIAC CONSULT ASSESSMENT/PLAN ASSESSMENT/PLAN Patient seen and examined. Agree with MAINTENANCE MAN's assessment and plan. Syncope of uncertain etiology Agree with PPM check 2D echo showed normal LVF CTA neck confirmed critical LOLI stenosis - treat per vas surgery Thank you for your consultation RASHAWN STALLWORTH APRN Nov 05, 2021 11:02 DANY BONDS MD Nov 05, 2021 21:39
--- NOTE | 2021-11-05 11:10 | DS ---
DATE OF DISCHARGE: 11/05/2021 ADMITTING DIAGNOSIS: Syncope. DISCHARGE DIAGNOSIS: Resolving vasovagal syncope, history of BPH, neuropathy, constipation, hyperlipidemia, hypertension, chronic pain, arthritis, muscle spasms. HOSPITAL COURSE: The patient is a pleasant 76-year-old male who was at the [email or web address]. He had his neck bent down for a while. Then, he had a syncopal episode. We admitted the patient for observation. Today, I saw him and examined him, he is doing well. No more syncopal episodes. We plan to interrogate the pacemaker. If that is doing well, we plan to discharge. DISPOSITION: Home. ACTIVITY: As tolerated. DIET: Low sodium. MEDICATIONS: Please see the MRAD. Aspirin 325 a day, gabapentin 300 t.i.d., amlodipine 10 a day, aspirin 81 a day, docusate, B12, cyclobenzaprine 10 q.6 hours p.r.n., hydrocodone p.r.n., lisinopril 40 a day, MiraLax, pravastatin 10 a day, senna, Zoloft 50 a day, Flomax 0.4 a day. TOTAL TIME: 32 minutes. AMI/RIMA DR: Rebel TID: [id number]
[2021-11-05] MEDS ORDERED: LISINOPRIL 10 MG TABLET PO SCH (11:30)
[2021-11-05] MEDS ORDERED: ATORVASTATIN CALCIUM 10 MG TABLET. PO SCH ×2 (11:30→21:00)
--- NOTE | 2021-11-05 12:46 | PDOC ---
[employer] PROGRESS NOTE Date of Service DOS: DATE: 11/05/21 TIME: 12:40 Chief Complaint Chief Complaint Resolving syncope History of BPH Neuropathy Constipation Hyperlipidemia Hypertension Chronic pain Arthritis Muscle spasm History of Present Illness History of Present Illness 11/05/2021 Patient seen and examined Discussed with RN Chart reviewed We were originally go to try to discharge this afternoon after interrogation of the pacemaker However now the carotid Dopplers are showing a tight stenosis on the right I discussed the case with the radiologist I called and discussed the case with Dr. Mccarthy also (vascular surgeon) Vitals/I&O Vitals/I&O: Vital Signs Date Time Temp Pulse Resp B/P (MAP) Pulse Ox O2 Delivery O2 Flow Rate FiO2 11/05/21 11:16 57 145/63 11/05/21 10:47 97.6 20 95 Room Air 97.6 I & O 11/04/21 11/04/21 11/05/21 15:00 23:00 07:00 Intake Total 710 ml 1500 ml Output Total 1375 ml Balance 710 ml 125 ml Physical Exam General: Alert, Oriented X3, Cooperative, No acute distress Heart: Regular rate (SR), Normal S1, Normal S2, Other (3/6 systolic murmur to LILIAN border ) Lungs: Clear Abdomen: Soft, No tenderness Extremities: No cyanosis, No edema Skin: No breakdown, No significant lesion Labs Labs: Laboratory Tests Test 11/04/21 15:10 11/04/21 17:36 11/04/21 18:10 11/05/21 03:20 White Blood Count 8.3 x10^3/uL (4.0-11.0) 7.3 x10^3/uL (4.0-11.0) Red Blood Count 4.12 x10^6/uL (4.30-5.70) 4.15 x10^6/uL (4.30-5.70) Hemoglobin 12.2 g/dL (13.0-17.5) 12.0 g/dL (13.0-17.5) Hematocrit 36.9 % (39.0-53.0) 36.9 % (39.0-53.0) Mean Corpuscular Volume 90 fL (79-100) 89 fL (79-100) Mean Corpuscular Hemoglobin 30 pg (25-35) 29 pg (25-35) Mean Corpuscular Hemoglobin Concent 33 g/dL (31-37) 33 g/dL (31-37) Red Cell Distribution Width 14.4 % (11.5-14.5) 14.7 % (11.5-14.5) Platelet Count 198 x10^3/uL (140-400) 194 x10^3/uL (140-400) Neutrophils (%) (Auto) 74 % (31-73) 60 % (31-73) Lymphocytes (%) (Auto) 15 % (24-48) 24 % (24-48) Monocytes (%) (Auto) 10 % (0-9) 13 % (0-9) Eosinophils (%) (Auto) 1 % (0-3) 2 % (0-3) Basophils (%) (Auto) 1 % (0-3) 1 % (0-3) Neutrophils # (Auto) 6.1 x10^3/uL (1.8-7.7) 4.4 x10^3/uL (1.8-7.7) Lymphocytes # (Auto) 1.3 x10^3/uL (1.0-4.8) 1.8 x10^3/uL (1.0-4.8) Monocytes # (Auto) 0.8 x10^3/uL (0.0-1.1) 0.9 x10^3/uL (0.0-1.1) Eosinophils # (Auto) 0.1 x10^3/uL (0.0-0.7) 0.2 x10^3/uL (0.0-0.7) Basophils # (Auto) 0.1 x10^3/uL (0.0-0.2) 0.1 x10^3/uL (0.0-0.2) Sodium Level 140 mmol/L (136-145) 140 mmol/L (136-145) Potassium Level 4.7 mmol/L (3.5-5.1) 4.4 mmol/L (3.5-5.1) Chloride Level 106 mmol/L (98-107) 109 mmol/L (98-107) Carbon Dioxide Level 26 mmol/L (21-32) 26 mmol/L (21-32) Anion Gap 8 (6-14) 5 (6-14) Blood Urea Nitrogen 26 mg/dL (8-26) 24 mg/dL (8-26) Creatinine 1.8 mg/dL (0.7-1.3) 1.5 mg/dL (0.7-1.3) Estimated GFR (Cockcroft-Gault) 36.8 45.4 BUN/Creatinine Ratio 14 (6-20) 16 (6-20) Glucose Level 102 mg/dL (70-99) 100 mg/dL (70-99) Calcium Level 9.7 mg/dL (8.5-10.1) 9.7 mg/dL (8.5-10.1) Phosphorus Level 2.9 mg/dL (2.6-4.7) 2.5 mg/dL (2.6-4.7) Magnesium Level 2.0 mg/dL (1.8-2.4) 2.1 mg/dL (1.8-2.4) Total Bilirubin 0.3 mg/dL (0.2-1.0) 0.2 mg/dL (0.2-1.0) Aspartate Amino Transf (AST/SGOT) 17 U/L (15-37) 19 U/L (15-37) Alanine Aminotransferase (ALT/SGPT) 42 U/L (16-63) 34 U/L (16-63) Alkaline Phosphatase 88 U/L (46-116) 87 U/L (46-116) Troponin I High Sensitivity 8 ng/L (4-75) 10 ng/L (4-75) CR-Ikd-M-Type Natriuretic Peptide 85 pg/mL (0-449) Total Protein 7.0 g/dL (6.4-8.2) 6.8 g/dL (6.4-8.2) Albumin 3.5 g/dL (3.4-5.0) 3.3 g/dL (3.4-5.0) Albumin/Globulin Ratio 1.0 (1.0-1.7) 0.9 (1.0-1.7) Influenza Type A Antigen Negative (NEGATIVE) Influenza Type B Antigen Negative (NEGATIVE) SARS-CoV-2 Antigen (Rapid) Negative (NEGATIVE) Thyroid Stimulating Hormone (TSH) 0.813 uIU/mL (0.358-3.74) Assessment and Plan Assessmemt and Plan Problems Medical Problems: (1) Encounter for interrogation of cardiac pacemaker Status: Acute (2) Syncope Status: Acute Resolving syncope 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 Mccarthy he agrees to see the patient regarding the right carotid artery stenosis For now continue the following; Appreciate cardiology input Cardiac monitoring Home meds Aspirin Statin Lisinopril Await permanent pacemaker interrogation results DVT prophylaxis Full code PT OT Comment Review of Relevant I have reviewed the following items helena (where applicable) has been applied. Medications: Current Medications Medications (Trade) Dose Ordered Sig/Adalgisa Route PRN Reason Start Time Stop Time Status Last Admin Dose Admin Sodium Chloride 500 ml @ 500 mls/hr 1X ONCE IV 11/04/21 15:00 11/04/21 15:59 DC 11/04/21 15:30 Sodium Chloride 1,000 ml @ 100 mls/hr Q10H IV 11/04/21 17:15 11/05/21 10:56 DC 11/05/21 04:30 Enoxaparin Sodium (Lovenox 40mg Syringe) 40 mg Q24H SQ 11/04/21 17:30 11/04/21 18:00 Aspirin (Sheldon Aspirin) 325 mg DAILY PO 11/05/21 09:00 11/05/21 11:01 DC 11/05/21 08:09 Gabapentin (Neurontin) 300 mg TID PO 11/04/21 21:00 11/05/21 08:09 Tamsulosin HCl (Flomax) 0.4 mg HS PO 11/04/21 21:00 11/04/21 20:57 Lisinopril (Prinivil) 10 mg DAILY PO 11/05/21 11:30 11/05/21 11:16 Justifications for Admission Other Justification Syncope STAR GRIGGS III DO Nov 05, 2021 12:46
[2021-11-05] MEDS ORDERED: CONTRAST GIVEN. MC PRN (15:00)
[2021-11-05] MEDS ORDERED: IOHEXOL 300 MG/ML 100ML VIAL. IV ONE (15:00)
[2021-11-05 15:30] VITALS: BP 184/74
--- NOTE | 2021-11-05 16:15 | RAD ---
EXAM: CT angiography of the neck with intravenous contrast. HISTORY: Carotid stenosis. TECHNIQUE: Computed tomographic images of the neck were obtained following the administration of intr avenous contrast according to angiography protocol. Multiplanar reformatting was performed and three dimensional maximum intensity projection images were obtained. *One or more of the following individualized dose reduction techniques were utilized for this examina tion: 1. Automated exposure control. 2. Adjustment of the mA and/or kV according to patient size. 3. Use of iterative reconstruction technique. COMPARISON: None. FINDINGS: The visualized aortic arch is normal in caliber. There is partially calcified atherosclerot ic plaque involving the aortic arch and proximal arch great vessels. There is a common origin of the right innominate and left common carotid arteries, a normal aortic arch branching variant. No hemodyn amically significant stenosis is seen involving the arch great vessel origins. There is mild atherosc lerotic plaque at the origins of the vertebral arteries, with less than 50 percent stenosis. There is atherosclerotic plaque at the origin of the right subclavian artery, with less than 50 percent steno sis. There is severe partially calcified atherosclerotic plaque involving the right carotid bulb and proxi mal right internal carotid artery. This results in near complete occlusion of the right internal james tid artery approximately 1.2 cm from the vessel origin. There is reconstitution of flow within the re mainder of the right internal carotid artery. There is mild calcified atherosclerotic plaque within t he cavernous internal carotid artery, with less than 50 percent stenosis. There is no hemodynamically significant stenosis involving the right external carotid artery. There is mild partially calcified atherosclerotic plaque involving the left carotid bulb and proximal left internal carotid artery, with less than 50 percent stenosis. The right vertebral artery is slig htly dominant. The visualized basilar artery is widely patent. There is cerebral volume loss. There are areas of decreased attenuation within the cerebral white mat ter due to chronic small vessel disease. There is a tiny right maxillary sinus mucous retention cyst. The mastoid air cells are unremarkable. There is no neck lymphadenopathy. The airways midline. There is pulmonary emphysema. There is a 4 mm nodule within the right lung apex. There is a cardiac pacema ker with leads partially included on the [id number]. There are degenerative changes involving the cervical spine. This results in mild to moderate right a nd mild left foraminal stenosis at C2-C3, severe right and moderate left foraminal and moderate to se mere central canal stenosis at C3-C4, severe bilateral foraminal and central canal stenosis at C4-C5, mild right foraminal and moderate to severe central canal stenosis at C5-C6, and mild left foraminal and moderate central canal stenosis at C6-C7. IMPRESSION: 1. Severe atherosclerosis involving the proximal right ICA resulting in a segment of near complete oc clusion approximately 1.2 cm from the vessel origin. There is reconstitution of flow within the remai nder of the right ICA and mild atherosclerotic plaque within the distal right ICA with less than 50 p ercent stenosis. 2. Mild atherosclerosis involving the left carotid bifurcation, with less than 50 percent stenosis. 3. Mild atherosclerotic plaque involving the origins of the vertebral arteries, with less than 50 per cent stenosis. 4. Severe degenerative change involving the cervical spine, resulting in significant foraminal and ce ntral canal stenosis at the aforementioned levels. PQRS Compliance Statement - Stenosis calculations for CT, MR and conventional angiography are based u paula measurement of the distal ICA diameter in accordance with the NASCET methodology. Stenosis calcu lations for carotid ultrasound studies are derived from validated velocity criteria which are known t o correlate with the NASCET methodology. Electronically signed by: Tiana Desai MD (11/05/2021 4:13 PM) [id number]
--- NOTE | 2021-11-05 17:18 | CARD ---
MR#: [id number] Date of Study: 11/05/2021 Ordering Physician: RASHAWN STALLWORTH, Referring Physician: Nathen MEEKS: Les Mcgowan [facility] APPROVED REPORT EXAM: LIMITED Two-dimensional and M-mode echocardiogram with Doppler and color Doppler. Other Information Quality : AverageHR: 66bpm Rhythm : NSR INDICATION Aortic Valve Disease Syncope Surgery/Intervention Pacemaker: RISK FACTORS Hypertension 2D DIMENSIONS IVSd1.3 (0.7-1.1cm)LVDd5.3 (3.9-5.9cm) LVOT Diameter2.3 (1.8-2.4cm)PWd1.3 (0.7-1.1cm) LVDs2.8 (2.5-4.0cm)FS (%) 46.8 % SV104.4 mlLVEF(%)77.8 (>50%) Aortic Valve AoV Peak Filippo.309.6cm/sAoV VTI74.1cm AO Peak GR.38.3mmHgLVOT Peak Filippo.101.3cm/s AO Mean GR.23mmHgAVA (VMAX)1.33cm2 Tricuspid Valve TR P. [id number]/sTR Peak Gr.32mmHg LEFT VENTRICLE The left ventricle is normal size. There is mild concentric left ventricular hypertrophy. The left ve ntricular systolic function is normal. The ejection fraction is 60%. There is normal LV segmental wal l motion. No left ventricle thrombus noted on this study. There is no ventricular septal defect visua lized. There is no left ventricular aneurysm. There is no mass noted in the left ventricle. RIGHT VENTRICLE The right ventricle is normal size. There is normal right ventricular wall thickness. The right ventr icular systolic function is normal. ATRIA The left atrium size is normal. The right atrium size is normal. The interatrial septum is intact wit h no evidence for an atrial septal defect or patent foramen ovale as noted on 2-D or Doppler imaging. AORTIC VALVE The aortic valve is calcified and displays decreased opening. Doppler and Color Flow revealed mild ao rtic regurgitation. There is mild valvular aortic stenosis. Calculated aortic valve area is 1.4 cm2 w ith maximum pressure gradient of 38 mmHg and mean pressure gradient of 20 mmHg. There is no aortic va lvular vegetation. MITRAL VALVE The mitral valve is normal in structure and function. There is no evidence of mitral valve prolapse. There is no mitral valve stenosis. Doppler and Color Flow revealed no mitral valve regurgitation note d. TRICUSPID VALVE The tricuspid valve is normal in structure and function. Doppler and Color Flow revealed trace tricus pid regurgitation. The PA pressure was estimated at 35 mmHg. There is no tricuspid valve prolapse or vegetation. There is no tricuspid valve stenosis. PULMONIC VALVE The pulmonary valve is normal in structure and function. Doppler and Color Flow revealed no pulmonic valvular regurgitation. There is no pulmonic valvular stenosis. GREAT VESSELS The aortic root is normal in size. The ascending aorta is normal in size. The pulmonary artery is nor mal. The IVC is normal in size and collapses >50% with inspiration. PERICARDIAL EFFUSION There is no pleural effusion. There is no evidence of significant pericardial effusion. Critical Notification Critical Value: No <Conclusion> The left ventricular systolic function is normal. The ejection fraction is 60%. There is normal LV segmental wall motion. There is mild valvular aortic stenosis with MG 20 mmHg. Mild aortic regurgitation. Trace tricuspid regurgitation. The PA pressure was estimated at 35 mmHg. There is no evidence of significant pericardial effusion. Signed by : Zain Pierce, Electronically Approved : 11/05/2021 17:17:34
--- NOTE | 2021-11-05 19:20 | DS ---
DATE OF DISCHARGE: 11/05/2021 ADDENDUM ADDITIONAL DISCHARGE DIAGNOSIS: Incidental finding of tight right carotid stenosis. PLAN: We consulted Vascular Surgery. I spoke with Dr. Jennifer Hector. She ordered angiography of the right carotid artery. She explains that the patient is not a good candidate for open carotid endarterectomy, but rather she would like to do a stent and that will be done in a couple of weeks. She feels like the patient is stable for discharge. We will go ahead and discharge and have him followup with Vascular Surgery. [facility]/[place] DR: Rebel TID: [id number]
--- NOTE | 2021-11-05 21:08 | PDOC2 ---
CONSULT Date of Service Date of Service DATE: 11/05/21 TIME: 20:55 Reason for Consult Reason for Consult: right carotid stenosis Identification/Chief Complaint Chief Complaint syncopal episode Source Source: Chart review, Patient History of Present Illness Reason for Visit: Mr. Aguirre is a 76 year old male who presents with a syncopal episode of approximately 15 min duration. He was getting his hair cut when he slumped over in his chair and became unresponsive. he reports that this happened previously prior to his pacemaker placement but had not happened again since then. He denies any lateralizing symptoms including weakness, numbness, facial droop, unilateral vision changes. He quit smoking 20 years ago and is on ASA/statin. He denies other complaints at this time. He has followed with Dr. Canchola for carotid stenosis. He is noted to have a marked increase in his velocities on the duplex obtained today compared to a prior duplex in June. He has a history of right anterior cervical fusion and has limited ROM of his neck in both directions. Past Medical History Cardiovascular: HTN, Hyperlipidemia, Aortic stenosis, Other (SSS, carotid artery disease) Pulmonary: No pertinent hx CENTRAL NERVOUS SYSTEM: Other GI: Constipation Heme/Onc: No pertinent hx Hepatobiliary: No pertinent hx Psych: Anxiety Musculoskeletal: Osteoarthritis Rheumatologic: No pertinent hx Infectious disease: No pertinent hx Renal/: Benign prostatic enlarg., Other (nephrolithiasis) Endocrine: No pertinent hx Past Surgical History Past Surgical History: Pacemaker, Other (nasal and sinus surgery) Family History Family History: No Significant Social History Quit (20 years ago) ALCOHOL: none Drugs: None Lives: with Family Current Problem List Problem List Problems Medical Problems: (1) Encounter for interrogation of cardiac pacemaker Status: Acute (2) Syncope Status: Acute Current Medications Current Medications Current Medications Sodium Chloride 500 ml @ 500 mls/hr 1X ONCE IV Last administered on 11/04/21at 15:30; Start 11/04/21 at 15:00; Stop 11/04/21 at 15:59; Status DC Ondansetron HCl (Zofran) 4 mg PRN Q8HRS PRN IVP NAUSEA/VOMITING; Start 11/04/21 at 16:45; Stop 11/05/21 at 11:03; Status DC Fentanyl Citrate (Fentanyl 2ml Vial) 50 mcg PRN Q1HR PRN IVP PAIN; Start 11/04/21 at 16:45; Stop 11/05/21 at 16:44; Status DC Acetaminophen (Tylenol) 650 mg PRN Q4HRS PRN PO FEVER > 100.3'F; Start 11/04/21 at 16:45; Stop 11/05/21 at 11:03; Status DC Sennosides (Senna) 17.2 mg PRN BID PRN PO CONSTIPATION; Start 11/04/21 at 17:15 Docusate Sodium (Colace) 100 mg PRN DAILY PRN PO HARD STOOLS; Start 11/04/21 at 17:15 Ondansetron HCl (Zofran) 4 mg PRN Q6HRS PRN IVP NAUSEA/VOMITING, 1st CHOICE; Start 11/04/21 at 17:15 Dextrose (Dextrose 50%-Water Syringe) 12.5 gm PRN Q15MIN PRN IV SEE COMMENTS; Start 11/04/21 at 17:15 Sodium Chloride 1,000 ml @ 100 mls/hr Q10H IV Last administered on 11/05/21at 04:30; Start 11/04/21 at 17:15; Stop 11/05/21 at 10:56; Status DC Acetaminophen (Tylenol) 650 mg PRN Q4HRS PRN PO TEMP OVER 100.4F OR MILD PAIN; Start 11/04/21 at 17:15 Lorazepam (Ativan) 0.5 mg PRN Q6HRS PRN PO ANXIETY / AGITATION; Start 11/04/21 at 17:15 Lorazepam (Ativan Inj) 0.25 mg PRN Q4HRS PRN IV ANXIETY / AGITATION; Start 11/04/21 at 17:15 Enoxaparin Sodium (Lovenox 40mg Syringe) 40 mg Q24H SQ Last administered on 11/04/21at 18:00; Start 11/04/21 at 17:30 Prochlorperazine Edisylate (Compazine) 10 mg PRN Q6HRS PRN IV NAUSEA/VOMITING, 2nd CHOICE; Start 11/04/21 at 17:15 Diphenhydramine HCl (Benadryl) 25 mg PRN Q6HRS PRN IVP ITCHING; Start 11/04/21 at 17:15 Diphenhydramine HCl (Benadryl) 25 mg PRN Q6HRS PRN PO ITCHING; Start 11/04/21 at 17:15 Diphenhydramine HCl (Benadryl) 25 mg PRN QHS PRN PO INSOMNIA, 1st CHOICE; Start 11/04/21 at 17:15 Zolpidem Tartrate (Ambien) 2.5 mg PRN QHS PRN PO INSOMNIA, 2nd CHOICE; Start 11/04/21 at 17:15 Aspirin (Sheldon Aspirin) 325 mg DAILY PO Last administered on 11/05/21at 08:09; Start 11/05/21 at 09:00; Stop 11/05/21 at 11:01; Status DC Gabapentin (Neurontin) 300 mg TID PO Last administered on 11/05/21at 14:10; Start 11/04/21 at 21:00 Acetaminophen/ Hydrocodone Bitart (Lortab 7.5/325) 1 tab PRN Q6HRS PRN PO MODERATE TO SEVERE PAIN; Start 11/04/21 at 20:15 Tamsulosin HCl (Flomax) 0.4 mg HS PO Last administered on 11/04/21at 20:57; Start 11/04/21 at 21:00 Aspirin (Ecotrin) 81 mg DAILYWBKFT PO ; Start 11/06/21 at 08:00 Atorvastatin Calcium (Lipitor) 10 mg DAILY PO ; Start 11/05/21 at 11:30; Status Cancel Lisinopril (Prinivil) 10 mg DAILY PO Last administered on 11/05/21at 11:16; Start 11/05/21 at 11:30 Atorvastatin Calcium (Lipitor) 10 mg QHS PO ; Start 11/05/21 at 21:00 Iohexol (Omnipaque 300 Mg/ml) 60 ml 1X ONCE IV Last administered on 11/05/21at 15:00; Start 11/05/21 at 15:00; Stop 11/05/21 at 15:01; Status DC Info (CONTRAST GIVEN -- Rx MONITORING) 1 each PRN DAILY PRN MC SEE COMMENTS; Start 11/05/21 at 15:00; Stop 11/07/21 at 14:59 Active Scripts Active Gabapentin 300 Mg Capsule 300 Mg PO TID 90 Days Aspirin 325 Mg Tablet 325 Mg PO DAILY 30 Days Senna (Sennosides) 8.6 Mg Tablet 8.6 Mg PO PRN BID PRN Colace (Docusate Sodium) 100 Mg Capsule 100 Mg PO DAILY [Bisacodyl] 10 MG Supp.rect 10 Mg CA PRN DAILY PRN Reported Amlodipine Besylate 10 Mg Tablet 10 Mg PO DAILY Excedrin Extra Strength Caplet (Aspirin/Acetaminophen/Caffeine) 1 Each Tablet 2 Each PO DAILY Zoloft (Sertraline Hcl) 50 Mg Tablet 1 Tab PO DAILY Vitamin B-12 (Cyanocobalamin (Vitamin B-12)) 500 Mcg Tablet 1 Tab PO QMWF 30 Days Pravastatin Sodium 10 Mg Tablet 1 Tab PO 3X/WEEK Cyclobenzaprine Hcl 10 Mg Tablet 1 Tab PO PRN Q6HRS PRN Lisinopril 20 Mg Tablet 40 Mg PO DAILY Miralax (Polyethylene Glycol 3350) 17 Gm Powd.pack 1 Pkt PO PRN DAILY PRN Hydrocodone-Apap 7.5-325 (Hydrocodone Bit/Acetaminophen) 1 Each Tablet 1 Tab PO PRN Q6HRS PRN Cyclobenzaprine Hcl 10 Mg Tablet 10 Mg PO PRN Q6HRS PRN Flomax (Tamsulosin Hcl) 0.4 Mg Cap.er.24h 0.4 Mg PO HS Allergies Allergies: Coded Allergies: No Known Drug Allergies (Unverified , 11/08/13) ROS General: YES: Fatigue Eyes: Yes Blurry vision Respiratory: YES: Shortness of breath Gastrointestinal: No Nausea, No Vomiting, No Abdominal Pain, No Diarrhea, No Constipation, No Melena, No Hematochezia, No Other Genitourinary: No Dysuria, No Frequency, No Incontinence, No Hematuria, No Retention, No Discharge, No Urgency, No Pain, No Flank Pain, No Other, No , No , No , No , No , No , No Neurological: No Behavorial Changes, No Bowel/Bladder ControlChng, No Confusion, No Dizziness, No Gait Disturbance, No Headaches, No Impaired Coord/balance, No Memory Loss, No Numbness/Tingling, No Seizures, No Speech Pro blems, No Tremors, No Visual Changes, No Weakness, No Other Physical Exam General: Alert, Oriented X3, No acute distress HEENT: Atraumatic, Mucous membr. moist/pink Lungs: Clear to auscultation, Normal air movement Heart: Regular rate, Other (holosystolic murmur radiating to neck, no carotid bruit, palpable radial, femoral, DP/PT pulses b/l) Abdomen: Soft, No tenderness Extremities: Other (bilateral pedal edema) Neuro: Normal speech, Strength at 5/5 X4 ext, Normal tone, Sensation intact, Cranial nerves 3-12 NL Psych/Mental Status: Mental status NL Vitals VITALS Vital Signs Date Time Temp Pulse Resp B/P (MAP) Pulse Ox O2 Delivery O2 Flow Rate FiO2 11/05/21 15:30 97.8 61 20 184/74 (110) 97 Room Air 97.8 Labs Labs Laboratory Tests Test 11/04/21 15:10 11/04/21 17:36 11/04/21 18:10 11/05/21 03:20 White Blood Count 8.3 x10^3/uL (4.0-11.0) 7.3 x10^3/uL (4.0-11.0) Red Blood Count 4.12 x10^6/uL (4.30-5.70) 4.15 x10^6/uL (4.30-5.70) Hemoglobin 12.2 g/dL (13.0-17.5) 12.0 g/dL (13.0-17.5) Hematocrit 36.9 % (39.0-53.0) 36.9 % (39.0-53.0) Mean Corpuscular Volume 90 fL (79-100) 89 fL (79-100) Mean Corpuscular Hemoglobin 30 pg (25-35) 29 pg (25-35) Mean Corpuscular Hemoglobin Concent 33 g/dL (31-37) 33 g/dL (31-37) Red Cell Distribution Width 14.4 % (11.5-14.5) 14.7 % (11.5-14.5) Platelet Count 198 x10^3/uL (140-400) 194 x10^3/uL (140-400) Neutrophils (%) (Auto) 74 % (31-73) 60 % (31-73) Lymphocytes (%) (Auto) 15 % (24-48) 24 % (24-48) Monocytes (%) (Auto) 10 % (0-9) 13 % (0-9) Eosinophils (%) (Auto) 1 % (0-3) 2 % (0-3) Basophils (%) (Auto) 1 % (0-3) 1 % (0-3) Neutrophils # (Auto) 6.1 x10^3/uL (1.8-7.7) 4.4 x10^3/uL (1.8-7.7) Lymphocytes # (Auto) 1.3 x10^3/uL (1.0-4.8) 1.8 x10^3/uL (1.0-4.8) Monocytes # (Auto) 0.8 x10^3/uL (0.0-1.1) 0.9 x10^3/uL (0.0-1.1) Eosinophils # (Auto) 0.1 x10^3/uL (0.0-0.7) 0.2 x10^3/uL (0.0-0.7) Basophils # (Auto) 0.1 x10^3/uL (0.0-0.2) 0.1 x10^3/uL (0.0-0.2) Sodium Level 140 mmol/L (136-145) 140 mmol/L (136-145) Potassium Level 4.7 mmol/L (3.5-5.1) 4.4 mmol/L (3.5-5.1) Chloride Level 106 mmol/L (98-107) 109 mmol/L (98-107) Carbon Dioxide Level 26 mmol/L (21-32) 26 mmol/L (21-32) Anion Gap 8 (6-14) 5 (6-14) Blood Urea Nitrogen 26 mg/dL (8-26) 24 mg/dL (8-26) Creatinine 1.8 mg/dL (0.7-1.3) 1.5 mg/dL (0.7-1.3) Estimated GFR (Cockcroft-Gault) 36.8 45.4 BUN/Creatinine Ratio 14 (6-20) 16 (6-20) Glucose Level 102 mg/dL (70-99) 100 mg/dL (70-99) Calcium Level 9.7 mg/dL (8.5-10.1) 9.7 mg/dL (8.5-10.1) Phosphorus Level 2.9 mg/dL (2.6-4.7) 2.5 mg/dL (2.6-4.7) Magnesium Level 2.0 mg/dL (1.8-2.4) 2.1 mg/dL (1.8-2.4) Total Bilirubin 0.3 mg/dL (0.2-1.0) 0.2 mg/dL (0.2-1.0) Aspartate Amino Transf (AST/SGOT) 17 U/L (15-37) 19 U/L (15-37) Alanine Aminotransferase (ALT/SGPT) 42 U/L (16-63) 34 U/L (16-63) Alkaline Phosphatase 88 U/L (46-116) 87 U/L (46-116) Troponin I High Sensitivity 8 ng/L (4-75) 10 ng/L (4-75) CU-Fme-B-Type Natriuretic Peptide 85 pg/mL (0-449) Total Protein 7.0 g/dL (6.4-8.2) 6.8 g/dL (6.4-8.2) Albumin 3.5 g/dL (3.4-5.0) 3.3 g/dL (3.4-5.0) Albumin/Globulin Ratio 1.0 (1.0-1.7) 0.9 (1.0-1.7) Coronavirus (COVID-19)(PCR) Not detected (NOT DETECTD) Influenza Type A Antigen Negative (NEGATIVE) Influenza Type B Antigen Negative (NEGATIVE) SARS-CoV-2 Antigen (Rapid) Negative (NEGATIVE) Thyroid Stimulating Hormone (TSH) 0.813 uIU/mL (0.358-3.74) Laboratory Tests Test 11/05/21 03:20 White Blood Count 7.3 x10^3/uL (4.0-11.0) Red Blood Count 4.15 x10^6/uL (4.30-5.70) Hemoglobin 12.0 g/dL (13.0-17.5) Hematocrit 36.9 % (39.0-53.0) Mean Corpuscular Volume 89 fL (79-100) Mean Corpuscular Hemoglobin 29 pg (25-35) Mean Corpuscular Hemoglobin Concent 33 g/dL (31-37) Red Cell Distribution Width 14.7 % (11.5-14.5) Platelet Count 194 x10^3/uL (140-400) Neutrophils (%) (Auto) 60 % (31-73) Lymphocytes (%) (Auto) 24 % (24-48) Monocytes (%) (Auto) 13 % (0-9) Eosinophils (%) (Auto) 2 % (0-3) Basophils (%) (Auto) 1 % (0-3) Neutrophils # (Auto) 4.4 x10^3/uL (1.8-7.7) Lymphocytes # (Auto) 1.8 x10^3/uL (1.0-4.8) Monocytes # (Auto) 0.9 x10^3/uL (0.0-1.1) Eosinophils # (Auto) 0.2 x10^3/uL (0.0-0.7) Basophils # (Auto) 0.1 x10^3/uL (0.0-0.2) Sodium Level 140 mmol/L (136-145) Potassium Level 4.4 mmol/L (3.5-5.1) Chloride Level 109 mmol/L (98-107) Carbon Dioxide Level 26 mmol/L (21-32) Anion Gap 5 (6-14) Blood Urea Nitrogen 24 mg/dL (8-26) Creatinine 1.5 mg/dL (0.7-1.3) Estimated GFR (Cockcroft-Gault) 45.4 BUN/Creatinine Ratio 16 (6-20) Glucose Level 100 mg/dL (70-99) Calcium Level 9.7 mg/dL (8.5-10.1) Phosphorus Level 2.5 mg/dL (2.6-4.7) Magnesium Level 2.1 mg/dL (1.8-2.4) Total Bilirubin 0.2 mg/dL (0.2-1.0) Aspartate Amino Transf (AST/SGOT) 19 U/L (15-37) Alanine Aminotransferase (ALT/SGPT) 34 U/L (16-63) Alkaline Phosphatase 87 U/L (46-116) Total Protein 6.8 g/dL (6.4-8.2) Albumin 3.3 g/dL (3.4-5.0) Albumin/Globulin Ratio 0.9 (1.0-1.7) Thyroid Stimulating Hormone (TSH) 0.813 uIU/mL (0.358-3.74) Images Images duplex with systolic velocity of proximal LOLI 481 Assessment/Plan Assessment/Plan 76M w/ syncopal episode and incidentally identified Right carotid stenosis -He has a high grade stenosis on arterial duplex which warrants both aggressive medical management and possibly surgical intervention. He is on ASA/statin and is no longer smoking. Statin should be high intensity, will confirm. He has limited range of motion in his neck both with extension and rotation. He has also undergone prior right anterior neck incision for cervical fusion. CTA ordered and completed today demonstrates near occlusion of the LOLI extending 1.2 cm beyond the bifurcation. This is a very high lesion and would be difficult to fully treat with endarterectomy should he desire surgery. I will share his imaging with our [facility] rep to determine his candidacy for [facility]. We have arranged follow up with me in clinic in the next few weeks. He is ok for discharge from the standpoint of his carotid disease. DO ELLE Love KARA M DO Nov 05, 2021 21:08
[2021-11-06] MEDS ORDERED: ASPIRIN ENTERIC COATED 81 MG TABLET.DR. PO SCH (08:00)
--- NOTE | 2021-11-06 08:10 | RAD ---
MR#: [id number] Date of Study: 11/05/2021 Ordering Physician: RASHAWN STALLWORTH, Referring Physician: RASHAWN STALLWORTH, Tech: Nicola Zhao MBA, RDMS, RVT, RDCS, RTR APPROVED REPORT Patient Location: OUT-PATIENT Laterality:Bilateral Indications CAROTID STENOSIS Doppler Spectral Velocity Analysis Right Left pCCA 47/10 cm/spCCA 70/9 cm/s mCCA 55/13 cm/smCCA 88/19 cm/s dCCA 57/13 cm/sdCCA 70/12 cm/s Bulb 54/11 cm/sBulb 74/13 cm/s ECA 133/ cm/sECA 87/ cm/s pICA 434/103 cm/spICA 76/13 cm/s Dalton 481/154 cm/smICA 89/22 cm/s dICA 138/43 cm/sdICA 85/22 cm/s Vert. 59/ cm/sVert. 35/ cm/s Subcl. 67/ cm/sSubcl. 93/ cm/s ICA/CCA 8.44ICA/CCA 1.27 Findings Grayscale images of extracranial carotid arteries showed severe atherosclerotic plaque involving the right carotid bifurcation and the proximal and mid segments of internal carotid artery. There was mi ld atherosclerotic plaque involving the left carotid bulb. Spectral waveform and color duplex analys is showed significantly elevated peak systolic and end-diastolic velocities in the proximal and mid s egments of the right internal carotid artery with significantly elevated ICA to CCA ratio of 8.4 sugg estive of critical stenosis/near occlusion. The rest of the carotid vessels showed normal velocities without any significant stenosis. The vertebral arteries bilaterally showed antegrade flow with nor mal velocities. Critical Notification Critical Value: Yes <Conclusion> Carotid arterial duplex scan showed critical stenosis/near occlusion involving the proximal and mid s egments of the right internal carotid artery. Signed by : Zain Pierce, Electronically Approved : 11/06/2021 08:10:34
--- NOTE | 2021-11-06 11:07 | NUR ---
SS following up with discharge planning. SS reviewed pt chart and discussed with pt RN. Pt is currently on room air. COVID19 negative. Discharge order on the chart for home with self care.
== END 2021-11-05 16:00 | disposition home or self-care (01) | DRG 67 ==
LOC: ER 14:41 → 6 SOUTH 16:28 → OBSVTOIN 17:04 → 6 SOUTH 17:42
PROVIDERS: ADMIT Internal Medicine; ATTEND Internal Medicine
DX: I65.21 Occlusion and stenosis of right carotid artery (principal); N17.0 Acute kidney failure with tubular necrosis; I35.0 Nonrheumatic aortic (valve) stenosis; E78.5 Hyperlipidemia, unspecified; G62.9 Polyneuropathy, unspecified; G89.29 Other chronic pain; I10 Essential (primary) hypertension; I95.1 Orthostatic hypotension; K59.00 Constipation, unspecified; M19.90 Unspecified osteoarthritis, unspecified site; N40.0 Benign prostatic hyperplasia without lower urinary tract symptoms; Z79.82 Long term (current) use of aspirin; Z87.442 Personal history of urinary calculi; Z87.891 Personal history of nicotine dependence; Z95.0 Presence of cardiac pacemaker; F41.9 Anxiety disorder, unspecified; Z20.822 Contact with and (suspected) exposure to COVID-19
CPT/HCPCS: 36415; 70450; 70498; 71045; 80053; 83036; 83735; 83880; 84100; 84443; 84484; 85025; 87428; 93005; 93308; 93880; G0379; J1650; J7030; J7040; Q9967; U0003; 99285-25; G0378

== ENCOUNTER → 2021-12-10 | Outpatient (CLI) | payer MEDICARE ==
[~2021-12-10] MED LIST changes: +AMLO-187 PO; +ASPI-621 PO; +ASPI-630 PO; +CYAN500T7 PO; +GABA600T7 PO; +PRAV10TA2 PO; +SERT50TA PO
--- NOTE | 2021-12-10 17:26 | CARD ---
MR#: [id number] Date of Study: 12/10/2021 Ordering Physician: MINDI GUERRERO, Referring Physician: MINDI GUERREOR, Tech: Les Mcgowan [facility] APPROVED REPORT EXAM: Two-dimensional and M-mode echocardiogram with Doppler and color Doppler. Other Information Quality : AverageHR: 60bpm Rhythm : NSR INDICATION Sick Sinus Syndrome Surgery/Intervention ICD/Pacemaker: RISK FACTORS Obesity 2D DIMENSIONS Left Atrium(2D)3.7 (1.6-4.0cm)IVSd1.4 (0.7-1.1cm) Aortic Root(2D)3.7 (2.0-3.7cm)LVDd5.2 (3.9-5.9cm) LVOT Diameter2.1 (1.8-2.4cm)PWd1.3 (0.7-1.1cm) LA Ofbtqa86 (18-58mL)LVDs2.9 (2.5-4.0cm) FS (%) 44.9 %SV99.4 ml Aortic Valve AoV Peak Filippo.303.1cm/sAoV VTI69.6cm AO Peak GR.36.8mmHgLVOT Peak Filippo.98.5cm/s LVOT VTI 22.71cmAO Mean GR.21mmHg DAMI (VMAX)0.31mp0WKF (VTI)1.11cm2 AI P 1/2 [id number] Mitral Valve MV E Npzhqjil60.7cm/sMV DECEL [id number] MV A Ddspepqe105.6cm/sMV HNE67si E/A Ratio0.7MVA (PHT)4.68cm2 TDI E/Lateral E'10.0E/Medial E'11.8 Pulmonary Valve PV Peak Kyqkqdof81.0cm/sPV Peak Grad.3mmHg Tricuspid Valve TR P. Ezqtjyje226ku/sTR Peak Gr.29mmHg Pulmonary Vein S1 Hmmjsyqm71.2cm/sD2 Poyrkoob90.2cm/s LEFT VENTRICLE The left ventricle is normal size. There is mild concentric left ventricular hypertrophy. The left ve ntricular systolic function is normal. LV ejection fraction of 55 to 60%. There is normal LV segmenta l wall motion. No left ventricle thrombus noted on this study. There is no ventricular septal defect visualized. There is no left ventricular aneurysm. There is no mass noted in the left ventricle. RIGHT VENTRICLE The right ventricle is normal size. There is normal right ventricular wall thickness. The right ventr icular systolic function is normal. There is a device lead in the right ventricle. ATRIA The left atrium size is normal. The right atrium size is normal. The interatrial septum is intact wit h no evidence for an atrial septal defect or patent foramen ovale as noted on 2-D or Doppler imaging. AORTIC VALVE The aortic valve is calcified. Doppler and Color Flow revealed mild aortic regurgitation. There is mi ld to moderate valvular aortic stenosis. Calculated aortic valve area is 1.1 cm2 with maximum pressur e gradient of 41 mmHg and mean pressure gradient of 22 mmHg. There is no aortic valvular vegetation. MITRAL VALVE The mitral valve is normal in structure and function. There is no evidence of mitral valve prolapse. There is no mitral valve stenosis. Doppler and Color-flow revealed trace mitral regurgitation. TRICUSPID VALVE The tricuspid valve is normal in structure and function. Doppler and Color Flow revealed trace to mil d tricuspid regurgitation. There is no tricuspid valve prolapse or vegetation. There is no tricuspid valve stenosis. PULMONIC VALVE The pulmonary valve is normal in structure and function. Doppler and Color Flow revealed no pulmonic valvular regurgitation. There is no pulmonic valvular stenosis. GREAT VESSELS The aortic root is normal in size. The ascending aorta is normal in size. The pulmonary artery is nor mal. The IVC is normal in size and collapses >50% with inspiration. PERICARDIAL EFFUSION There is no pleural effusion. There is no evidence of significant pericardial effusion. Critical Notification Critical Value: No <Conclusion> The left ventricle is normal size. The left ventricular systolic function is normal. LV ejection fraction of 55 to 60%. There is mild concentric left ventricular hypertrophy. The aortic valve is calcified. Doppler and Color Flow revealed mild aortic regurgitation. There is mild to moderate valvular aortic stenosis. Calculated aortic valve area is 1.1 cm2 with maximum pressure gradient of 41 mmHg and mean pressure g radient of 22 mmHg. Doppler and Color Flow revealed trace to mild tricuspid regurgitation. Signed by : Kurtis Hernandez MD Electronically Approved : 12/10/2021 17:25:55
== END ==
LOC: ECHO 10:43
PROVIDERS: ATTEND Internal Medicine Cardiovascular Disease
DX: I08.2 Rheumatic disorders of both aortic and tricuspid valves (principal); I49.5 Sick sinus syndrome
CPT/HCPCS: 93306; C8929